=== PATIENT | male | born 1955 | race Caucasian/White ===

== ENCOUNTER 2024-03-22 11:52 | Inpatient (IN) | payer SELFPAY ==
[~2024-03-22] VITALS: Ht 175.3 cm; Wt 77.4 kg
[2024-03-22 13:34] LABS: BASOPHILS # (AUTO) 0.02 K/uL (0.00-0.20); BASOPHILS % (AUTO) 0.1 % (0.0-5.0); EOSINOPHILS # (AUTO) 0.02 K/uL (0.00-0.70); EOSINOPHILS % (AUTO) 0.1 % (0.0-8.0); HEMATOCRIT 36.7 % (42-54); IMMATURE GRANULOCYTE ABSOLUTE 0.25 K/uL (0-1); LYMPHOCYTES # (AUTO) 0.5 K/uL (1.0-4.8); LYMPHOCYTES % (AUTO) 3.7 % (21.0-51.0); MEAN CORPUSCULAR HGB CONC 32.7 g/dL (32.0-36.0); MONOCYTES # (AUTO) 1.2 K/uL (0.1-1.0); MONOCYTES % (AUTO) 8.5 % (3.0-13.0); NEUTROPHILS # (AUTO) 12.4 K/uL (1.8-7.7); NEUTROPHILS % (AUTO) 85.9 % (40.0-77.0); PLATELET COUNT (AUTO) 209 K/uL (130-400); RED BLOOD CELL COUNT(AUTO) 3.43 MIL/uL (4.50-6.20); RED CELL DISTRIBUTION WIDTH 12.7 % (11.0-15.5); WHITE BLOOD COUNT (AUTO) 14.4 K/uL (4.8-10.8)
[2024-03-22 13:50] LABS: ALCOHOL, BLOOD < 3 mg/dL (0-10); CARBON DIOXIDE 13 mmol/L (21-32); CREATINE KINASE, TOTAL 89 U/L (21-232); CREATININE 1.9 mg/dL (0.5-1.3); GLOMERULAR FILTR. RATE CALC 38 mL/min (>90); GLUCOSE,RANDOM 188 mg/dL (70-105); POTASSIUM 4.2 mmol/L (3.5-5.1); SALICYLATE 4.5 mg/dL (2.8-20.0); SODIUM SERUM 128 mmol/L (136-145); UREA NITROGEN, BLOOD 44 mg/dL (7-18)
[2024-03-22 14:01] LABS: ACETAMINOPHEN < 1 mcg/mL (10-29)
[2024-03-22 14:02] LABS: CHLORIDE 88 mmol/L (101-111)
[2024-03-22] MEDS: 0.9%NACL 1000ML 1,000 ML IV ONE (16:30)
[2024-03-22] MEDS: 0.9%NACL 1000ML 3,267 ML IV ONE (16:31)
[2024-03-22] MEDS: CEFTRIAXONE 2GM VIAL IVPB ONE (16:31)
[2024-03-22 19:55] LABS: ABG BASE EXCESS -3.5 mmol/L (-2.0-3.0); ABG OXYGEN SATURATION 96.5 % (94.0-98.0); ABG PCO2 22 mmHg (35-48); ABG PH 7.536 (7.350-7.450); CARBON MONOXIDE 0.3 % (0.5-1.5); DEVICE COMMENT MANNY RN; HHb 3.5; PO2, ARTERIAL BG 94.5 mmHg (83.0-108.0); VENT MODE, BG RA (ROOM AIR)
[2024-03-22] MEDS ORDERED: ONDANSETRON 4MG INJ IV PRN (20:00)
[2024-03-22] MEDS ORDERED: DEXTROSE 50%-WATER 50 ML DISP.SYRIN IV PRN (20:00)
[2024-03-22] MEDS ORDERED: acetaMINOPHEN 325 MG TAB PO PRN (20:00)
[2024-03-22] MEDS ORDERED: GLUCAGON 1MG KIT 1 MG ML IM PRN (20:00)
[2024-03-22] MEDS: 0.9%NACL 1000ML 1,000 ML IV SCH (20:14)
[2024-03-22] MEDS: FAMOTIDINE 20MG VIAL IV SCH (20:14)
[2024-03-22] MEDS: INSULIN humuLIN R 100 UNIT/ML 3ML SQ SCH (20:56)
[2024-03-22] MEDS ORDERED: cefTRIAXone 1G VIAL 1 GM in 0.9%NACL 50ML 50 ML IV SCH (21:00)
[2024-03-22 21:30] VITALS: BP 99/53; PULSE 93; RESP 18; O2SAT 94
[2024-03-22 23:32] VITALS: BP 92/48; PULSE 78; RESP 17
[2024-03-23 03:56] VITALS: BP 92/49; PULSE 72; RESP 17
[2024-03-23 05:11] LABS: BASOPHILS # (AUTO) 0.03 K/uL (0.00-0.20); BASOPHILS % (AUTO) 0.3 % (0.0-5.0); HEMATOCRIT 23.3 % (42-54); IMMATURE GRANULOCYTE ABSOLUTE 0.06 K/uL (0-1); LYMPHOCYTES # (AUTO) 1.4 K/uL (1.0-4.8); LYMPHOCYTES % (AUTO) 15.1 % (21.0-51.0); MEAN CORPUSCULAR HEMOGLOBIN 35.4 pg (27.0-33.0); MEAN CORPUSCULAR HGB CONC 34.8 g/dL (32.0-36.0); MEAN CORPUSCULAR VOLUME 101.7 fL (79-99); MONOCYTES # (AUTO) 0.9 K/uL (0.1-1.0); MONOCYTES % (AUTO) 9.6 % (3.0-13.0); NEUTROPHILS # (AUTO) 6.7 K/uL (1.8-7.7); NEUTROPHILS % (AUTO) 74.3 % (40.0-77.0); PLATELET COUNT (AUTO) 125 K/uL (130-400); RED BLOOD CELL COUNT(AUTO) 2.29 MIL/uL (4.50-6.20); RED CELL DISTRIBUTION WIDTH 12.3 % (11.0-15.5); WHITE BLOOD COUNT (AUTO) 9.1 K/uL (4.8-10.8)
[2024-03-23 05:33] LABS: BILIRUBIN,DIRECT 0.2 mg/dL (0.0-0.3); BILIRUBIN,TOTAL 0.9 mg/dL (0.2-1.0); POTASSIUM 3.6 mmol/L (3.5-5.1); THYROID STIMULATING HORMONE 1.3 uIU/mL (0.36-3.74); TOTAL PROTEIN, SERUM 4.6 g/dL (6.0-8.3)
[2024-03-23 06:22] LABS: HEMOGLOBIN A1C 4.4 % (4.0-6.0)
[2024-03-23] MEDS: POTASSIUM CHLORIDE 20MEQ/100ML 100 ML IV PRN (06:23)
[2024-03-23 08:00] VITALS: BP 96/73; PULSE 76; RESP 18; O2SAT 94
[2024-03-23] MEDS ORDERED: octREOtide aceTATe 500 MCG in 0.9%NACL 100ML 97.5 ML IV SCH (10:30)
[2024-03-23] MEDS ORDERED: COMPOUND IV REFRIGERATED 1 EACH IVSOLN MISC PRN (11:00)
[2024-03-23] MEDS ORDERED: COMPOUND IV MISC 1 EACH IVSOLN MISC PRN (11:00)
[2024-03-23 11:07] LABS: HEMATOCRIT 22.6 % (42-54); MEAN CORPUSCULAR HEMOGLOBIN 35.3 pg (27.0-33.0); MEAN CORPUSCULAR HGB CONC 33.6 g/dL (32.0-36.0); MEAN CORPUSCULAR VOLUME 105.1 fL (79-99); RED BLOOD CELL COUNT(AUTO) 2.15 MIL/uL (4.50-6.20); RED CELL DISTRIBUTION WIDTH 12.6 % (11.0-15.5); WHITE BLOOD COUNT (AUTO) 7.8 K/uL (4.8-10.8)
[2024-03-23 12:00] VITALS: BP_SYST 100; BP_SYST 87; BP_DIAS 48; BP_DIAS 62; PULSE 67; RESP 18
[2024-03-23] MEDS ORDERED: PHARMACY COMMUNICATION MISC SCH (13:00)
[2024-03-23] MEDS: M.V.I. IV [ADULT] 10 ML, FOLic ACID 5 MG/ML VIAL 1 MG, THIAMINE HCL 100 MG in 0.9%NACL ... IV SCH (13:26)
[2024-03-23] MEDS ORDERED: cefTRIAXone 1G VIAL IVPB SCH (15:00)
[2024-03-23 16:23] VITALS: BP 95/48; PULSE 68; RESP 17
[2024-03-23] MEDS: PANTOPRAZOLE 80 MG/NS 100ML IVP SCH (17:08)
[2024-03-23] MEDS: cefTRIAXone 1G VIAL IVPB SCH (18:24)
[2024-03-23 18:42] LABS: MEAN CORPUSCULAR HEMOGLOBIN 35.3 pg (27.0-33.0); MEAN CORPUSCULAR HGB CONC 32.8 g/dL (32.0-36.0); MEAN CORPUSCULAR VOLUME 107.8 fL (79-99); PLATELET COUNT (AUTO) 93 K/uL (130-400); RED BLOOD CELL COUNT(AUTO) 1.67 MIL/uL (4.50-6.20); RED CELL DISTRIBUTION WIDTH 12.5 % (11.0-15.5)
[2024-03-23 20:00] VITALS: BP 88/62; PULSE 67; RESP 16
[2024-03-23 20:09] LABS: PLATELET MORPHOLOGY DECREASED
[2024-03-23] MEDS ORDERED: PANTOPRAZOLE 40 MG/VIAL IVP SCH (21:00)
[2024-03-24] VITALS (26 sets, daily range): BP systolic 80–114; BP diastolic 49–71; PULSE 52–74; RESP 6–19; O2SAT 94–98
[2024-03-24] MEDS: acetaMINOPHEN 325 MG TAB PO PRN (00:43)
[2024-03-24 03:55] LABS: HEMATOCRIT 28.7 % (42-54); MEAN CORPUSCULAR HEMOGLOBIN 32.3 pg (27.0-33.0); MEAN CORPUSCULAR HGB CONC 33.1 g/dL (32.0-36.0); MEAN CORPUSCULAR VOLUME 97.6 fL (79-99); RED BLOOD CELL COUNT(AUTO) 2.94 MIL/uL (4.50-6.20); WHITE BLOOD COUNT (AUTO) 6.8 K/uL (4.8-10.8)
[2024-03-24 04:20] LABS: CREATININE 0.9 mg/dL (0.5-1.3); MAGNESIUM 1.9 mg/dL (1.80-2.40); POTASSIUM 3.1 mmol/L (3.5-5.1); TOTAL PROTEIN, SERUM 4.7 g/dL (6.0-8.3)
[2024-03-24] MEDS: OCTREOTIDE 1,250 MCG /NS 250ML (DRIP) IV SCH (08:48)
[2024-03-24 10:37] LABS: HEMATOCRIT 28.3 % (42-54); MEAN CORPUSCULAR HEMOGLOBIN 32.6 pg (27.0-33.0); MEAN CORPUSCULAR HGB CONC 32.5 g/dL (32.0-36.0); MEAN CORPUSCULAR VOLUME 100.4 fL (79-99); RED BLOOD CELL COUNT(AUTO) 2.82 MIL/uL (4.50-6.20); RED CELL DISTRIBUTION WIDTH 17.2 % (11.0-15.5)
[2024-03-24] MEDS ORDERED: LIDOCAINE HCL-MPF 2% 10ML AMP IJ ONE (11:45)
[2024-03-24] MEDS ORDERED: proPOFol 10 MG/ML 20ML VIAL IV ONE (11:45)
[2024-03-24] MEDS: KCL 20 MEQ ERTAB PO ONE (17:48)
[2024-03-24 18:05] LABS: HEMATOCRIT 30.1 % (42-54); MEAN CORPUSCULAR HEMOGLOBIN 32.9 pg (27.0-33.0); MEAN CORPUSCULAR HGB CONC 32.9 g/dL (32.0-36.0); RED BLOOD CELL COUNT(AUTO) 3.01 MIL/uL (4.50-6.20); RED CELL DISTRIBUTION WIDTH 17.3 % (11.0-15.5); WHITE BLOOD COUNT (AUTO) 6.8 K/uL (4.8-10.8)
[2024-03-24] MEDS: PANTOPRAZOLE 40 MG/VIAL IVP SCH (21:01)
[2024-03-25] VITALS: BP 93/59; PULSE 63; RESP 18
[2024-03-25 04:00] VITALS: BP 90/58; PULSE 64; RESP 18
[2024-03-25 05:16] LABS: HEMATOCRIT 29.3 % (42-54); MEAN CORPUSCULAR HEMOGLOBIN 32.5 pg (27.0-33.0); MEAN CORPUSCULAR HGB CONC 32.4 g/dL (32.0-36.0); MEAN CORPUSCULAR VOLUME 100.3 fL (79-99); RED BLOOD CELL COUNT(AUTO) 2.92 MIL/uL (4.50-6.20); WHITE BLOOD COUNT (AUTO) 7.4 K/uL (4.8-10.8)
[2024-03-25 05:36] LABS: ALBUMIN 1.7 g/dL (3.5-5.0); BILIRUBIN,TOTAL 0.8 mg/dL (0.2-1.0); CREATININE 0.8 mg/dL (0.5-1.3); MAGNESIUM 1.4 mg/dL (1.80-2.40); POTASSIUM 3.4 mmol/L (3.5-5.1); TOTAL PROTEIN, SERUM 4.4 g/dL (6.0-8.3)
[2024-03-25 08:00] VITALS: BP 108/52; PULSE 71; RESP 18
[2024-03-25 08:30] VITALS: O2SAT 93
[2024-03-25] MEDS: MAGNESIUM 2GM PREMIX 50ML 50 ML IV PRN (08:31)
[2024-03-25 12:00] VITALS: BP 97/55; PULSE 76; RESP 18
[2024-03-25] MEDS ORDERED: MAGNESIUM 2GM PREMIX 50ML 50 ML IV SCH (12:30)
[2024-03-25] MEDS ORDERED: PANT40TA55 PO (12:32)
[2024-03-25] MEDS ORDERED: CEFD300C3 PO (12:32)
[2024-03-25] MEDS ORDERED: THIA100T78 PO (12:32)
[2024-03-25] MEDS ORDERED: FOLI0.4T6 PO (12:32)
[2024-03-25] MEDS: KCL 20 MEQ ERTAB PO ONE (13:31)
== END 2024-03-25 13:55 | disposition home or self-care (01) | DRG 872 ==
LOC: EDH 11:52 → EDHIP 11:53 → 4CH 21:30
PROVIDERS: ADMIT Internal Medicine; ATTEND Internal Medicine
PROC: 30233N1 Transfusion of Nonautologous Red Blood Cells into Peripheral Vein, Percutaneous Approach (ICD-10-PCS; 2024-03-23)
PROC: 0DB58ZX Excision of Esophagus, Via Natural or Artificial Opening Endoscopic, Diagnostic (ICD-10-PCS; principal; 2024-03-24)
PROC: 0DB68ZX Excision of Stomach, Via Natural or Artificial Opening Endoscopic, Diagnostic (ICD-10-PCS; 2024-03-24)
DX: A41.9 Sepsis, unspecified organism (principal); N17.9 Acute kidney failure, unspecified; K22.10 Ulcer of esophagus without bleeding; Z59.00 Homelessness unspecified; D62 Acute posthemorrhagic anemia; R65.20 Severe sepsis without septic shock; E86.0 Dehydration; F10.229 Alcohol dependence with intoxication, unspecified; F17.210 Nicotine dependence, cigarettes, uncomplicated; K29.70 Gastritis, unspecified, without bleeding; K44.9 Diaphragmatic hernia without obstruction or gangrene
CPT/HCPCS: 36415; 36600; 43239; 70450; 71045; 74176; 80048; 80053; 80076; 82010; 82140; 82270; 82435; 82550; 82803; 82947; 82948; 83036; 83605; 83690; 83735; 84132; 84145; 84295; 84443; 85018; 85025; 85027; 86850; 86900; 86901; 86923; 87040; 93005; 99291; A4606; G0378; G0481; J0696; J1815; J2354; J2470; J2704; J3411; J3475; J3480; J3490; J7030; J7050; P9016; A4215; A4221; A4222; A4223; A4600; A4620; A4663; A7002

== ENCOUNTER 2024-07-19 23:16 | Emergency (ER) | payer SELFPAY ==
[~2024-07-19 23:16] MED LIST: APIX5TAB PO; CEFD300C3 PO; FOLI0.4T6 PO; PANT40TA55 PO; THIA100T78 PO
[2024-07-19 23:34] VITALS: BP 101/64; PULSE 62; RESP 16; TEMP 98.1
--- NOTE | 2024-07-19 23:46 | ERN ---
ED Note History of Present Illness Stated Complaint: BILATERAL LEG PAIN, CELLULITIS Chief Complaint: Lower Extremity Pain/Injury Time Seen by MD: 23:28 Allergies: Coded Allergies: No Known Drug Allergies (Unverified Allergy, Unknown, 03/22/24) Home Meds Active Scripts Apixaban (Eliquis) 5 Mg Tablet, 1 TAB PO BID for 30 Days, #60 TAB 0 Refills Prov:CHICA DAVILA MD 07/19/24 Thiamine HCl (B-1) 100 Mg Tablet, 100 MG PO DAILY for 30 Days, #30 TAB 1 Refill Prov:MILLER GARCIA MD 03/25/24 Folic Acid (Folic Acid) 0.4 Mg Tablet, 0.4 MG PO DAILY for 30 Days, #30 TAB 1 Refill Prov:MILLER GARCIA MD 03/25/24 Pantoprazole Sodium (Protonix) 40 Mg Ectab, 40 MG PO DAILY for 30 Days, #30 TAB.EC 1 Refill Prov:MILLER GARCIA MD 03/25/24 Discontinued Scripts Cefdinir (Cefdinir) 300 Mg Capsule, 300 MG PO BID for 5 Days, #10 CAP 0 Refills Prov:MILLER GARCIA MD 03/25/24 Past Medical History Dictation Chronic Intermittent B/L lower extremity pain, POA Atrial fibrillation with RVR, POA, subsided Patient will be past medical history of CHF, DVTs, bedside hernia, hypernatremia, AFib, bilateral cellulitis presents via EMS after being discharged today with worsening leg pain. Patient is on appropriate medication, will worse he has not picked up his medicine. Patient has no new complaints. Patient denies fevers, nausea, vomiting diaphoresis, syncope, presyncope, chest pain or shortness of breath, abdominal pain. Past Medical History: Other Additional Past Medical Hx: hypotension Surgical History: None Social History: ETOH Review of System Dictation See HPI Initial Vital Sign VS Vital Signs Date Time Temp Pulse Resp B/P (MAP) Pulse Ox O2 Delivery O2 Flow Rate FiO2 07/19/24 23:34 98.1 62 16 101/64 98 Room Air 0 Physical Exam Dictation General: Disheveled, unkempt, malodorous MSK: Tenderness to palpation bilateral legs, no deformity Skin edema to the bilateral lower extremities, no inappropriate warmth ED Course ED Course Orders Procedure Category Date Status Time Acetaminophen 500mg PHA 07/20/24 In Process Tab (Tylenol 500mg T 00:00 Current Medications Medications (Trade) Dose Ordered Sig/Citlaly Route PRN Reason Start Time Stop Time Status Last Admin Dose Admin Acetaminophen (TYLenol 500MG TAB) 500 mg ONCE ONCE PO 07/20/24 00:00 07/20/24 00:01 Vital Signs Date Time Temp Pulse Resp B/P (MAP) Pulse Ox O2 Delivery O2 Flow Rate FiO2 07/19/24 23:34 98.1 62 16 101/64 98 Room Air 0 Medical Decision Making MDM dDX: Malingering versus cellulitis versus DVT versus homelessness #intepretation and discuss: Patient returns today saying that he is here because he should have been discharged and does not have a place to go. Patient states he did not picker and sorter load and unload his outpatient medication. Patient was complaining about leg pain, which he is known to have DVTs. Patient has no new respiratory complaints. Patient's vital signs are within normal limits. Review inpatient documentation shows appropriate vascular discharge. Patient will be discharged home with Augmentin. Patient all here periods of is improved. Return precautions given. By nasal All questions prior to discharge. We will provide primary care for a period DX & DISP Disposition: Discharge Departure Impression: Primary Impression: Lower extremity pain Condition: Stable Additional Instructions: Please return emergency department immediately if you develop worsened pain, shortness of breath, lightheadedness, 7+ capsules current chest pain, difficulty breathing. Please take antibiotics as prescribed. Please take happened unit case was prescribed. Referrals: SELF,REFERRAL (PCP) Time of Disposition: 23:46 DENNIS GONZALEZ DO Jul 19, 2024 23:46
[2024-07-19] MEDS: acetaMINOPHEN 500 MG TABLET PO ONE (23:47)
== END 2024-07-20 | disposition home or self-care (01) ==
LOC: EDH 23:16
DX: M79.605 Pain in left leg (principal); M79.604 Pain in right leg; I48.91 Unspecified atrial fibrillation; I50.9 Heart failure, unspecified; Z86.718 Personal history of other venous thrombosis and embolism; Z79.01 Long term (current) use of anticoagulants; Z79.899 Other long term (current) drug therapy
CPT/HCPCS: 99283

== ENCOUNTER 2024-08-01 14:04 | Inpatient (IN) | payer SELFPAY ==
[~2024-08-01] VITALS: Ht 170.2 cm; Wt 66.8 kg
[~2024-08-01 14:04] MED LIST changes: -CEFD300C3 PO
--- NOTE | 2024-08-01 15:30 | EKG ---
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 Requested By: GISELLE BLANK Order Number: [id number] Reading MD: Nena Umana Measurements Intervals [place] Rate: 114 P: 39 [place]: 139 QRS: 24 QRSD: 71 T: 132 QT: 299 QTc: 408 Interpretive Statements Sinus tachycardia Atrial premature complexes Repol abnrm suggests ischemia, anterolateral Compared to ECG 07/04/2024 15:57:42 Atrial premature complex(es) now present Early repolarization now present Possible ischemia now present Atrial fibrillation no longer present Atrial flutter no longer present Electronically Signed On 08-04-2024 08:16:27 ELECTRICIAN [employer] by Nena Umana Please click the below link to view image of tracing.
[2024-08-01 15:39] LABS: BASOPHILS # (AUTO) 0.07 K/uL (0.00-0.20); BASOPHILS % (AUTO) 0.3 % (0.0-5.0); EOSINOPHILS # (AUTO) 0.01 K/uL (0.00-0.70); HEMATOCRIT 40.7 % (42-54); IMMATURE GRANULOCYTE ABSOLUTE 0.16 K/uL (0-1); LYMPHOCYTES # (AUTO) 0.9 K/uL (1.0-4.8); LYMPHOCYTES % (AUTO) 3.2 % (21.0-51.0); MEAN CORPUSCULAR HGB CONC 33.2 g/dL (32.0-36.0); MEAN CORPUSCULAR VOLUME 93.3 fL (79-99); MONOCYTES # (AUTO) 1.3 K/uL (0.1-1.0); MONOCYTES % (AUTO) 4.9 % (3.0-13.0); NEUTROPHILS # (AUTO) 24.5 K/uL (1.8-7.7); PLATELET COUNT (AUTO) 441 K/uL (130-400); RED BLOOD CELL COUNT(AUTO) 4.36 MIL/uL (4.50-6.20); RED CELL DISTRIBUTION WIDTH 13.2 % (11.0-15.5)
[2024-08-01 15:45] LABS: CREATININE 1.4 mg/dL (0.5-1.3); POTASSIUM 4.5 mmol/L (3.5-5.1)
--- NOTE | 2024-08-01 16:48 | ERN ---
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 EMS was called by bystanders after patient tripped outside [facility]. Patient reports he was able to catch himself by holding onto the wall. Patient is homeless and currently denies any pain. Allergies: Coded Allergies: No Known Drug Allergies (Unverified Allergy, Unknown, 03/22/24) Home Meds Active Scripts Apixaban (Eliquis) 5 Mg Tablet, 1 TAB PO BID for 30 Days, #60 TAB 0 Refills Prov:CHICA DAVILA MD 07/19/24 Thiamine HCl (B-1) 100 Mg Tablet, 100 MG PO DAILY for 30 Days, #30 TAB 1 Refill Prov:MILLER GARCIA MD 03/25/24 Folic Acid (Folic Acid) 0.4 Mg Tablet, 0.4 MG PO DAILY for 30 Days, #30 TAB 1 Refill Prov:MILLER GARCIA MD 03/25/24 Pantoprazole Sodium (Protonix) 40 Mg Ectab, 40 MG PO DAILY for 30 Days, #30 TAB.EC 1 Refill Prov:MILLER GARCIA MD 03/25/24 Past Medical History Past Medical History: No Pertinent History Additional Past Medical Hx: hypotension Surgical History: None Social History: ETOH Review of System Dictation Constitutional: Positive for fall Negative for fever,chills, and weight loss Eyes: Negative for injury, pain,redness, and discharge ENT: Negative for injury,pain or swelling Cardiovascular: Negative for chest pain, palpitations, and edema Respiratory: Negative for shortness of breath, cough, and wheezing, Abdomen/GI: Negative for abdominal pain, nausea, vomiting, diarrhea, and constipation Back: Negative for injury and pain : Negative for injury, bleeding and discharge MS/Extremity: Negative for injury and deformity Skin: Negative for rash, and discoloration Neuro: Negative for headache, weakness, numbness, tingling, and seizure Psych: Negative for suicide ideation, homicidal ideation, and hallucinations Review of Systems: was completed Initial Vital Sign VS Vital Signs Date Time Temp Pulse Resp B/P (MAP) Pulse Ox O2 Delivery O2 Flow Rate FiO2 08/01/24 14:05 97.7 80 16 126/76 97 Room Air 0 08/01/24 15:53 21 Physical Exam Dictation General: awake, alert, NAD Head/Face: Normocephalic, atraumatic Eyes: PERRL, EOMI, vision at baseline ENT: oral cavity clear, TMs clear, no signs of infection Neck: Trachea midline, supple, no nuchal rigidity Cardiovascular: RRR, normal S1/S2, No MRGs, no JVD Respiratory: Diminished lung sounds in the right side. Abdomen: Soft, non-tender, non-distended, normal bowel sounds, no guarding or rebound. Skin: Warm, dry, normal turgor, no rash MS/Extremity: Pulses equal, no cyanosis, neurovascular intact, FROM Neuro: COAx4, GCS 15, strength 5/5, CN 2-12 intact, normal cerebellar exam, normal gait, Psych: Normal behavior, mood, and affect normal Results (Laboratory/Radiology) Laboratory/Radiology Laboratory Tests Test 08/01/24 15:20 08/01/24 15:26 Urine Color YELLOW (YELLOW) Urine Appearance CLOUDY (CLEAR) H Urine pH 5.5 (5.0-8.0) Urine Specific [place] 1.027 (1.001-1.031) Urine Protein 30 mg/dL (NEGATIVE) H Urine Glucose (UA) 30 mg/dL (NEGATIVE) H Urine Ketones 5 mg/dL (NEGATIVE) H Urine Occult Blood NEGATIVE (NEGATIVE) Urine Nitrate NEGATIVE (NEGATIVE) Urine Bilirubin NEGATIVE mg/dL (NEGATIVE) Urine Urobilinogen 2.0 mg/dL (0.2-1.0) H Urine Leukocyte Esterase NEGATIVE [place]/uL Urine RBC 2-5 /HPF (0-1) H Urine WBC 6-10 /HPF (0-1) H Urine Squamous Epithelial Cells FEW /HPF (0-2) Urine Bacteria FEW /HPF (None Seen) Urine Hyaline Casts 26-50 /LPF (0-1 /LPF) H Urine Other Casts 2 /LPF (None Seen) White Blood Count 27.0 K/uL (4.8-10.8) H Red Blood Count 4.36 MIL/uL (4.50-6.20) L Hemoglobin 13.5 g/dL (14.0-18.0) L Hematocrit 40.7 % (42-54) L Mean Corpuscular Volume 93.3 fL (79-99) Mean Corpuscular Hemoglobin 31.0 pg (27.0-33.0) Mean Corpuscular Hemoglobin Concent 33.2 g/dL (32.0-36.0) Red Cell Distribution Width 13.2 % (11.0-15.5) Platelet Count 441 K/uL (130-400) H Mean Platelet Volume 8.5 fL (7.5-10.5) Immature Granulocyte % (Auto) 0.6 % (0-1) Neutrophils (%) (Auto) 91.0 % (40.0-77.0) H Lymphocytes (%) (Auto) 3.2 % (21.0-51.0) L Monocytes (%) (Auto) 4.9 % (3.0-13.0) Eosinophils (%) (Auto) 0.0 % (0.0-8.0) Basophils (%) (Auto) 0.3 % (0.0-5.0) Neutrophils # (Auto) 24.5 K/uL (1.8-7.7) H Lymphocytes # (Auto) 0.9 K/uL (1.0-4.8) L Monocytes # (Auto) 1.3 K/uL (0.1-1.0) H Eosinophils # (Auto) 0.01 K/uL (0.00-0.70) Basophils # (Auto) 0.07 K/uL (0.00-0.20) Absolute Immature Granulocyte (auto 0.16 K/uL (0-1) Nucleated Red Blood Cells 0.0 % (0.0-0.19) White Cell Morphology Comment See comments Sodium Level 133 mmol/L (136-145) L Potassium Level 4.5 mmol/L (3.5-5.1) Chloride Level 98 mmol/L (101-111) L Carbon Dioxide Level 22 mmol/L (21-32) Blood Urea Nitrogen 11 mg/dL (7-18) Creatinine 1.4 mg/dL (0.5-1.3) H Glomerular Filtration Rate Calc 55 mL/min (>90) Random Glucose 156 mg/dL (70-105) H Total Calcium 8.9 mg/dL (8.5-10.1) Labs Reviewed?: Yes EKG Comment: sinus tachycardia, atrial premature complexes, repol abnormal ischemia, anterolateral ED Course ED Course Orders Procedure Category Date Status Time Cbc With Differential LAB 08/01/24 Complete 15:09 Basic Metabolic Panel LAB 08/01/24 Complete 15:09 12 Lead Ekg Tracing- EKG 08/01/24 Complete Technical 15:09 Chest 1vw RAD 08/01/24 Taken 17:06 Urinalysis Profile LAB 08/01/24 Complete 17:06 Culture Urine ONDINA 08/01/24 In Process 17:36 Vital Signs Date Time Temp Pulse Resp B/P (MAP) Pulse Ox O2 Delivery O2 Flow Rate FiO2 08/01/24 18:04 98.6 90 16 130/109 97 Room Air* 0 21 08/01/24 15:53 98.2 80 16 118/80 98 Room Air* 0 21 08/01/24 14:05 97.7 80 16 126/76 97 Room Air 0 Medical Decision Making MDM MDM: 69-year-old male presents to the ED via EMS for evaluation 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 EMS was called by bystanders after patient tripped outside [facility]. Patient reports he was able to catch himself by holding onto the wall. Patient is homeless and currently [place] [address], anemia, thrombocythemia. Chemistry shows hyponatremia, elevated creatinine 1.4, this could be related to dehydration. UA shows no evidence of UTI. Chest x-ray shows pulmonary infiltrates in the right upper lobe. Patient was seen here multiple times last month. This could be hospital-acquired pneumonia. Blood cultures and lactic acid ordered along with Zosyn and vancomycin. Patient will be admitted. 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 Differential diagnosis: Fall, contusion Previous outside records reviewed: Old ER visits. Need for hospitalization: Patient does not meet criteria for hospitalization. Need for emergency major/minor surgery: No Patient's prior external medical records from other ER visits were reviewed by me as indicated. Prior testing and results from previous visits were reviewed. Prior tests were taken into account with medical decision making and resource utilization, independent historian/historians were used to obtain complete medical history. I independently interpreted the test that were performed, results were reviewed by me and considered findings on radiology if ordered. Medical management and examination interpretation discussions were had by me with other qualified healthcare professionals as indicated for the patient's care. DX & DISP Disposition: Inpatient Decision to Admit Date: Aug 01, 2024 Decision to Admit Time: 18:41 Departure Impression: Primary Impression: Hospital-acquired pneumonia Condition: Stable Referrals: SELF,REFERRAL (PCP) I have reviewed, & agreed with my scribe's, documentation. (Entered by Keyon Escalante, acting as a scribe for SOHA King) I have reviewed the case, and I agree with, Diagnosis and Plan I personally scribed for GISELLE KING NP ([email or web address]) on 08/01/24 at 16:48. Electronically submitted by Keyon Escalante ([email or web address]). GISELLE KING NP Aug 01, 2024 16:48
[2024-08-01 17:31] LABS: ADD UA MICROSCOPIC YES; APPEARANCE,URINE CLOUDY (CLEAR); BILIRUBIN,URINE NEGATIVE (NEGATIVE); COLOR,URINE YELLOW (YELLOW); GLUCOSE, URINE (UA) 30 mg/dL (NEGATIVE); KETONES,URINE 5 mg/dL (NEGATIVE); LEUKOCYTE ESTERASE ,URINE NEGATIVE Leu/uL (NEGATIVE); NITRATE,URINE NEGATIVE (NEGATIVE); OCCULT BLOOD,URINE NEGATIVE (NEGATIVE); PH,URINE 5.5 (5.0-8.0); PROTEIN,URINE 30 mg/dL (NEGATIVE)
[2024-08-01 17:34] LABS: BACTERIA,URINE FEW /HPF (None Seen); HYALINE CASTS, URINE 26-50 /LPF (0-1 /LPF); MUCUS,URINE MOD LPF (None Seen); OTHER CASTS, URINE 2 /LPF (None Seen); SQUAMOUS EPITHELIAL CELL,UR FEW /HPF (0-2)
--- NOTE | 2024-08-01 19:24 | HMCIMG ---
CHEST 1VW HISTORY: Shortness of breath COMPARISON: 07/06/2024 FINDINGS: A frontal projection of the chest was obtained. Right lung pulmonary infiltrates are seen with right lung volume loss. COPD changes are seen. The heart is normal in size. Degenerative changes are seen. No evidence of aortic calcification is seen. IMPRESSION: 1. Right lung pulmonary infiltrates are seen with right lung volume loss. COPD changes are seen.
[2024-08-01] MEDS ORDERED: doCUSate SODIUM 100 MG CAP PO PRN (20:00)
[2024-08-01] MEDS ORDERED: LACTULOSE 20 GM/30 ML UDCUP PO PRN (20:00)
[2024-08-01] MEDS ORDERED: hydrALAZine 20MG/ML VIAL IV PRN (20:00)
[2024-08-01] MEDS ORDERED: ondanSETRON 4MG INJ IVP PRN (20:00)
[2024-08-01] MEDS ORDERED: VANCOMYCIN PROTOCOL PER PHARMACY IV SCH (20:00)
[2024-08-01] MEDS ORDERED: acetaMINOPHEN 650 MG SUPPOSITORY RC PRN (20:00)
[2024-08-01] MEDS ORDERED: TEMAZepam 15 MG CAPSULE PO PRN (20:00)
[2024-08-01] MEDS ORDERED: acetaMINOPHEN 325 MG TAB PO PRN (20:00)
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
[2024-08-01 20:10] LABS: ABG BASE EXCESS 0.1 mmol/L (-2.0-3.0); ABG HCO3 22.1 mmol/L (21.0-28.0); ABG OXYGEN SATURATION 93.9 % (94.0-98.0); ABG PCO2 28 mmHg (35-48); CARBON MONOXIDE 0.4 % (0.5-1.5); DEVICE COMMENT RR RN; HHb 6.1; PO2, ARTERIAL BG 65.9 mmHg (83.0-108.0); VENT MODE, BG RA (ROOM AIR)
[2024-08-01] MEDS: ZOSYN 3.375GM +NS 50ML IV STA (20:16)
[2024-08-01] MEDS: INSULIN humuLIN R 100 UNIT/ML 3ML SQ SCH (21:00)
[2024-08-01] MEDS: 0.9% NACL 250ML 250 ML IV SCH (21:07)
[2024-08-01] MEDS: VANCOMYCIN KIT 1 GM/250 ML IV.KIT IV STA (21:07)
--- NOTE | 2024-08-01 21:27 | NUR ---
report given to Carolina GOMEZ
[2024-08-01] MEDS: 0.9%NACL 1000ML 1,000 ML IV ONE (21:40)
[2024-08-01] MEDS: miDODRine HCL 5 MG TABLET PO SCH (21:40)
[2024-08-01] MEDS: IpraTROPium/alBUTERol SULFATE 3 ML SOLUTION IH SCH (22:00)
[2024-08-01] MEDS: HEParin 5,000 UNIT VIAL IV PRN (22:37)
[2024-08-01] MEDS: IpraTROPium 0.5 MG/2.5 ML INH IH SCH (22:53)
[2024-08-01] MEDS: BUDESONIDE 0.5 MG/2 ML INH IH SCH (22:53)
[2024-08-01] MEDS: HEParin 25,000 UNITS/250ML D5W 250 ML IV SCH (22:54)
[2024-08-01 23:00] VITALS: PULSE 88; RESP 17; O2SAT 95
[2024-08-01 23:15] LABS: SARS-CoV-2, RNA, NAAT NEGATIVE SARS CoV-2 (NEGATIVE)
[2024-08-01 23:17] LABS: INFLUENZA TYPE A Negative For Type A (NEGATIVE); INFLUENZA TYPE B Negative For Type B (NEGATIVE)
--- NOTE | 2024-08-01 23:39 | HMCIMG ---
CT CHEST W/O CONTRAST HISTORY: Hypoxemia COMPARISON: None TECHNIQUE: Multiple sequential axial images of the chest were obtained from the thoracic inlet through upper abdomen. Patient was not given contrast through intravenous route. FINDINGS: COPD changes are seen. Reticular nodular pulmonary infiltrates are seen of right lung. There are interstitial fibrosis. Coronary arterial calcifications are seen. Small hiatal hernia is seen. Tiny right pleural effusion is seen. There is no evidence of pneumothorax. There are normal size mediastinal and hilar lymph nodes. The heart is not enlarged. Degenerative changes of the thoracolumbar spine are present. There is no evidence of adrenal nodule. IMPRESSION: 1. COPD. Right lung reticular nodular infiltrates. CT was performed with one or more following dose reduction techniques: automated exposure control, adjustment of the mA and kv according to patient's size, or use of a iterative reconstruction technique.
[2024-08-01 23:44] LABS: BASOPHILS # (AUTO) 0.07 K/uL (0.00-0.20); BASOPHILS % (AUTO) 0.3 % (0.0-5.0); HEMATOCRIT 32.9 % (42-54); IMMATURE GRANULOCYTE ABSOLUTE 0.14 K/uL (0-1); LYMPHOCYTES # (AUTO) 2.2 K/uL (1.0-4.8); LYMPHOCYTES % (AUTO) 8.9 % (21.0-51.0); MEAN CORPUSCULAR HEMOGLOBIN 31.3 pg (27.0-33.0); MEAN CORPUSCULAR HGB CONC 33.4 g/dL (32.0-36.0); MEAN CORPUSCULAR VOLUME 93.5 fL (79-99); MONOCYTES # (AUTO) 1.4 K/uL (0.1-1.0); MONOCYTES % (AUTO) 5.4 % (3.0-13.0); NEUTROPHILS # (AUTO) 21.3 K/uL (1.8-7.7); NEUTROPHILS % (AUTO) 84.8 % (40.0-77.0); PLATELET COUNT (AUTO) 364 K/uL (130-400); RED BLOOD CELL COUNT(AUTO) 3.52 MIL/uL (4.50-6.20); RED CELL DISTRIBUTION WIDTH 13.4 % (11.0-15.5); WHITE BLOOD COUNT (AUTO) 25.1 K/uL (4.8-10.8)
--- NOTE | 2024-08-01 23:47 | HMCIMG ---
US VENOUS DOPPLER BILATERAL HISTORY: Leg swelling COMPARISON: None TECHNIQUE: Bilateral lower extremity venous Doppler ultrasound study was performed. FINDINGS: The common femoral, femoral, popliteal, and posterior tibial veins are visualized. Noncompressible thrombi are seen in the right common femoral, bilateral superficial femoral, popliteal and right posterior tibial veins consistent with deep venous thrombosis. The greater saphenous veins are also seen and grossly patent. IMPRESSION: 1. Noncompressible thrombi are seen in the right common femoral, bilateral superficial femoral, popliteal and right posterior tibial veins consistent with deep venous thrombosis.
--- NOTE | 2024-08-01 23:57 | NUR ---
MED NOT REC, NOT AVAILABLE AT BEDSIDE
[2024-08-02] VITALS (61 sets, daily range): BP systolic 91–151; BP diastolic 47–89; PULSE 58–93; RESP 11–31; TEMP 98.2–98.7; O2SAT 97–98
[2024-08-02] MEDS ORDERED: GLUCAGON 1MG KIT 1 MG ML IM PRN (01:00)
[2024-08-02] MEDS ORDERED: PoTASSium chl 10% ELIXIR 20MEQ 20 MEQ/15 ML UDCUP PO PRN (01:00)
[2024-08-02] MEDS ORDERED: PoTASSium chloRIDE 20MEQ ER 20 MEQ ERTAB PO PRN (01:00)
[2024-08-02] MEDS ORDERED: PoTASSium chloRIDE 10MEQ/100ML 100 ML IV PRN (01:00)
[2024-08-02] MEDS ORDERED: DEXTROSE 50%-WATER 50 ML DISP.SYRIN IV PRN (01:00)
[2024-08-02 01:11] LABS: AMPHET/METH SCREEN,URINE NEGATIVE (NEGATIVE); BARBITURATE SCREEN, URINE NEGATIVE (NEGATIVE); BENZODIAZEPINES SCREEN,URINE NEGATIVE (NEGATIVE); CANNABINOID SCREEN,URINE NEGATIVE (NEGATIVE); COCAINE SCREEN,URINE NEGATIVE (NEGATIVE); OPIATE SCREEN,URINE NEGATIVE (NEGATIVE); PHENCYCLIDINE SCREEN,URINE NEGATIVE (NEGATIVE)
[2024-08-02] MEDS: CALCIUM GLUC 1GM/10ML VIAL IV ONE (01:21)
[2024-08-02] MEDS: NOREPINEPHRIN 4MG/NS 250ML 250 ML IV SCH (01:35)
--- NOTE | 2024-08-02 01:53 | NUR ---
CALLED FOR A REPORT BED NOT READY YET SEEN BY JANAK ORDONEZ CRIT CARE CONSULT
[2024-08-02] MEDS ORDERED: ALBUMIN HUMAN 25% 100 ML IV SCH (02:00)
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
[2024-08-02] MEDS: ceFEPime HCL 1 GM VIAL IVPB SCH (05:59)
[2024-08-02 06:56] LABS: HEMATOCRIT 31.9 % (42-54); MEAN CORPUSCULAR HGB CONC 33.5 g/dL (32.0-36.0); MEAN CORPUSCULAR VOLUME 92.5 fL (79-99); RED BLOOD CELL COUNT(AUTO) 3.45 MIL/uL (4.50-6.20); RED CELL DISTRIBUTION WIDTH 13.4 % (11.0-15.5); WHITE BLOOD COUNT (AUTO) 21.1 K/uL (4.8-10.8)
[2024-08-02 07:18] LABS: CREATININE 1.3 mg/dL (0.5-1.3); MAGNESIUM 1.6 mg/dL (1.80-2.40); POTASSIUM 4.4 mmol/L (3.5-5.1); THYROID STIMULATING HORMONE 4.95 uIU/mL (0.36-3.74)
[2024-08-02] MEDS: PANTOPrazole 40 MG TAB DR PO SCH (10:13)
--- NOTE | 2024-08-02 12:39 | HMCIMG ---
NM PULMONARY/LUNG VQ SCAN HISTORY: Hypoxemia COMPARISON: None TECHNIQUE: Ventilation study was performed with 7.5 mCi of Xenon gas through inhalation route. Perfusion lung imaging study was performed with 5 mCi of technetium macroaggregated through intravenous route. FINDINGS: There is no evidence of segmental or subsegmental perfusion defect. Nonsegmental perfusion defects are also present. IMPRESSION: 1. Low probability for pulmonary embolus.
[2024-08-02] MEDS: AZITHROMYCIN 500MG+NS 250ML 250 ML IVPB SCH (15:09)
--- NOTE | 2024-08-02 15:32 | NUR ---
DCP: HOMELESS Sw familiar with pt who denies he is homeless, "I live outdoors". Pt states he was staying on [address] and was told he could not return. Pt states he is a member of the [employer], and has 270 million dollars, and since he owes the government, he can not access his SS benefits. And he can not access the money he has either. Pt states he has no family here or out of state, no friends that he cares to mention. Pt states he is working on another place to stay, but does not want us to discharge him till weather is better. CM updated.
--- NOTE | 2024-08-02 16:03 | PN ---
[facility] PROGRESS NOTE Date of Service: Aug 02, 2024 Time of Service: 15:58 SUBJECTIVE: 08/02 patient seen at bedside, no acute events overnight. V/Q scan pending, we will follow up. Venous Dopplers positive for thrombus, we will continue heparin drip. WBC improved from 20/5 down to 21, hemoglobin decreased from 11.0 down to [address]. CT of chest showing pulmonary infiltrates on the right side, we will continue with antibiotics. REVIEW OF SYSTEMS 12-point ROS reviewed with patient. All pertinent positives mentioned above. Otherwise negative, non-pertinent, or noncontributory. PHYSICAL EXAM GENERAL APPEARANCE: The patient is awake, alert, and oriented. Ungroomed, his close is dirty, and has body foul odor. NEUROLOGICAL: Cranial nerves II-XII grossly intact. Motor is 5/5 in bilateral upper and lower extremities proximal to distal. No sensory deficits. HEENT: Face is symmetric. Pupils are equal and reactive. Extraocular movements are intact. NECK: Supple. No JVD. No thyromegaly. No submental, submandibular, pre- /postauricular, occipital or supraclavicular lymphadenopathy. CHEST: Normal chest expansion. No Telemetry. LUNGS: Tachypneic, diminished. No rhonchi or wheezing. Has productive thick phlegm. CARDIOVASCULAR: Regular. S1 and S2 normal. No appreciable rubs, murmurs or gallops. ABDOMEN: Soft, nontender, and nondistended. There is no rebound, voluntary guarding, or rigidity. : Deferred. No Avery. EXTREMITIES: Non-edematous and not cyanotic. No clubbing. Good capillary refill. SKIN: No skin breakdown. Vital Signs (last 8hr) Date Time Temp Pulse Resp B/P (MAP) Pulse Ox O2 Delivery O2 Flow Rate FiO2 08/02/24 15:01 76 19 109/68 (82) 100 08/02/24 14:46 75 18 101/64 (76) 99 08/02/24 14:31 81 26 105/66 (79) 100 28 08/02/24 14:16 74 21 104/65 (78) 99 28 08/02/24 14:01 74 24 109/63 (78) 100 28 08/02/24 13:46 75 19 103/61 (75) 99 28 08/02/24 13:31 75 20 101/62 (75) 100 28 08/02/24 13:16 75 21 111/63 (79) 100 28 08/02/24 13:01 77 18 111/68 (82) 96 28 08/02/24 12:46 81 19 112/63 (79) 94 28 08/02/24 12:28 98.2 83 19 107/71 (83) 92 28 08/02/24 12:00 98 Nasal Cannula* 2 28 08/02/24 11:01 76 14 126/77 (93) 96 28 08/02/24 10:46 72 18 110/68 (82) 100 28 08/02/24 10:31 74 18 106/66 (79) 98 28 08/02/24 10:16 75 18 127/62 (83) 99 28 08/02/24 10:01 81 19 108/73 (85) 98 28 08/02/24 09:46 87 23 106/71 (83) 96 28 08/02/24 09:31 85 17 141/68 (92) 97 28 08/02/24 09:16 77 20 135/52 (79) 97 28 08/02/24 09:06 80 19 102/66 (78) 98 28 08/02/24 08:31 79 27 91/58 (69) 98 28 08/02/24 08:17 74 31 101/63 (76) 99 28 08/02/24 08:01 93 27 134/76 (95) 88 28 08/02/24 08:00 98 Nasal Cannula* 2 28 LABS: Laboratory: Test 08/02/24 13:38 08/02/24 10:54 08/02/24 06:48 08/01/24 23:30 Range/Units Activated Partial Thromboplast Time 108.0 *H 26.3-35.5 SEC Whole Blood Glucose 91 70-110 MG/DL White Blood Count 21.1 H 4.8-10.8 K/uL Red Blood Count 3.45 L 4.50-6.20 MIL/uL Hemoglobin 10.7 L 14.0-18.0 g/dL Hematocrit 31.9 L 42-54 % Mean Corpuscular Volume 92.5 79-99 fL Mean Corpuscular Hemoglobin 31.0 27.0-33.0 pg Mean Corpuscular Hemoglobin Concent 33.5 32.0-36.0 g/dL Red Cell Distribution Width 13.4 11.0-15.5 % Platelet Count 382 130-400 K/uL Mean Platelet Volume 8.7 7.5-10.5 fL Nucleated Red Blood Cells 0.0 0.0-0.19 % Sodium Level 138 136-145 mmol/L Potassium Level 4.4 3.5-5.1 mmol/L Chloride Level 104 101-111 mmol/L Carbon Dioxide Level 24 21-32 mmol/L Blood Urea Nitrogen 14 7-18 mg/dL Creatinine 1.3 0.5-1.3 mg/dL Glomerular Filtration Rate Calc 60 >90 mL/min Random Glucose 93 70-105 mg/dL Total Calcium 8.2 L 8.5-10.1 mg/dL Phosphorus Level 3.0 2.5-4.9 mg/dL Magnesium Level 1.60 L 1.80-2.40 mg/dL Thyroid Stimulating Hormone (TSH) 4.95 #H 0.36-3.74 uIU/mL Immature Granulocyte % (Auto) 0.6 0-1 % Neutrophils (%) (Auto) 84.8 H 40.0-77.0 % Lymphocytes (%) (Auto) 8.9 L 21.0-51.0 % Monocytes (%) (Auto) 5.4 3.0-13.0 % Eosinophils (%) (Auto) 0.0 0.0-8.0 % Basophils (%) (Auto) 0.3 0.0-5.0 % Neutrophils # (Auto) 21.3 H 1.8-7.7 K/uL Lymphocytes # (Auto) 2.2 1.0-4.8 K/uL Monocytes # (Auto) 1.4 H 0.1-1.0 K/uL Eosinophils # (Auto) 0.00 0.00-0.70 K/uL Basophils # (Auto) 0.07 0.00-0.20 K/uL Absolute Immature Granulocyte (auto 0.14 0-1 K/uL Lactic Acid Level 2.3 0.8-2.5 mmol/L Test 08/01/24 22:46 08/01/24 20:08 08/01/24 19:50 08/01/24 15:26 Range/Units Influenza Type A Antigen Negative For Type A NEGATIVE Influenza Type B Antigen Negative For Type B NEGATIVE SARS-CoV-2, RNA, NAAT NEGATIVE SARS CoV-2 NEGATIVE Blood Gas Specimen Type Arterial Arterial Blood pH 7.510 H 7.350-7.450 Arterial Blood Partial Pressure CO2 28 L 35-48 mmHg Arterial Blood Partial Pressure O2 65.9 L 83.0-108.0 mmHg Arterial Blood HCO3 22.1 21.0-28.0 mmol/L Arterial Blood Oxygen Saturation 93.9 L 94.0-98.0 % Arterial Blood Base Excess 0.1 -2.0-3.0 mmol/L Hemoglobin (Blood Gas) 12.9 L 13.5-17.5 g/dL Sodium (Blood Gas) 129 L 136-145 MMOL/L Bedside Potassium (Blood Gas) 4.4 3.4-4.5 MMOL/L Bedside Chloride (Blood Gas) 98 98-107 MMOL/L Bedside Glucose (Blood Gas) 137 H 65-95 MG/DL Bedside Ionized Calcium (Blood Gas) 1.14 L 1.15-1.33 MMOL/L Bedside Lactic Acid (Blood Gas) 2.64 H 0.36-0.75 MMOL/L Blood Gas Temperature 37.0 35.5-37.0 CELSIUS Blood Gas Vent Mode RA ROOM AIR FiO2 21.0 % Blood Gas Specimen Comment RR RN D-Dimer Quantitative (PE/DVT) 805 *H 0-500 ng/mL B-Type Natriuretic Peptide 128 H 0-100 pg/mL Lipase 12 L 16-77 U/L White Cell Morphology Comment See comments Test 08/01/24 15:20 Range/Units Urine Color YELLOW YELLOW Urine Appearance CLOUDY H CLEAR Urine pH 5.5 5.0-8.0 Urine Specific [place] 1.027 1.001-1.031 Urine Protein 30 H NEGATIVE mg/dL Urine Glucose (UA) 30 H NEGATIVE mg/dL Urine Ketones 5 H NEGATIVE mg/dL Urine Occult Blood NEGATIVE NEGATIVE Urine Nitrate NEGATIVE NEGATIVE Urine Bilirubin NEGATIVE NEGATIVE mg/dL Urine Urobilinogen 2.0 H 0.2-1.0 mg/dL Urine Leukocyte Esterase NEGATIVE NEGATIVE Shelley/uL Urine RBC 2-5 H 0-1 /HPF Urine WBC 6-10 H 0-1 /HPF Urine Squamous Epithelial Cells FEW 0-2 /HPF Urine Bacteria FEW None Seen /HPF Urine Hyaline Casts 26-50 H 0-1 /LPF /LPF Urine Other Casts 2 None Seen /LPF Urine Opiates Screen NEGATIVE NEGATIVE Urine Barbiturates Screen NEGATIVE NEGATIVE Urine Phencyclidine Screen NEGATIVE NEGATIVE Urine Amphetamines Screen NEGATIVE NEGATIVE Urine Benzodiazepines Screen NEGATIVE NEGATIVE Urine Cocaine Screen NEGATIVE NEGATIVE Urine Marijuana (THC) Screen NEGATIVE NEGATIVE Current Medications Medications (Trade) Dose Ordered Sig/Citlaly Route PRN Reason Start Time Stop Time Status Last Admin Dose Admin Acetaminophen (TYLenol 325MG TAB) 650 mg Q6H PRN PO FEVER/MILD PAIN LEVEL 1-3 08/01/24 20:00 08/31/24 19:59 Acetaminophen (TYLenol 650MG SUPPOSITORY) 650 mg Q6H PRN RC FEVER / MILD PAIN 1-3 IF NPO 08/01/24 20:00 08/31/24 19:59 Albumin Human 100 ml @ 0 mls/hr AD IV 08/02/24 02:00 09/01/24 01:59 Albuterol (DUOneb) 1 udvial [id number] IH 08/01/24 22:00 08/31/24 21:59 08/02/24 06:37 1 UDVIAL Azithromycin 250 ml @ 250 mls/hr Q24H IVPB 08/02/24 14:00 09/02/24 14:00 08/02/24 15:09 250 MLS/HR Budesonide (Pulmicort 0.5 Mg/2ml) 0.5 mg BIDRESP IH 08/01/24 20:10 08/31/24 20:09 08/02/24 11:14 0.5 MG Cefepime HCl (MAXipime 1 GM vial) 1 gm Q12H IVPB 08/02/24 04:00 08/12/24 03:59 08/02/24 05:59 1 GM Dextrose (D50w) 50 ml AD PRN IV HYPOGLYCEMIA PROTOCOL 08/02/24 01:00 09/01/24 00:59 Docusate Sodium (COLace 100MG CAP) 100 mg BID PRN PO CONSTIPATION 08/01/24 20:00 08/31/24 19:59 Glucagon (Glucagon 1mg Kit) 1 mg AD PRN IM HYPOGLYCEMIA PROTOCOL 08/02/24 01:00 09/01/24 00:59 Heparin Sodium (Porcine) (HEParin 5,000 UNIT VIAL) *calculation based on ACTUAL B... AD PRN IV HEPARIN PROTOCOL 08/01/24 23:30 08/31/24 23:29 08/01/24 22:37 5,000 UNIT Heparin Sodium/ Dextrose 250 ml @ 0 mls/hr PROTOCOL IV 08/01/24 22:00 08/31/24 21:59 Heparin Sodium/ Dextrose 250 ml @ 0 mls/hr Q6H IV 08/01/24 23:30 08/02/24 13:54 DC 08/01/24 22:54 11 MLS/HR Hydralazine HCl (APRESOLine 20MG INJ) 10 mg Q2H PRN IV SBP GREATER THAN 160 08/01/24 20:00 08/31/24 19:59 Insulin Human Regular (humuLIN R 100 UNIT/ML 3ML) INSULIN SLIDING SCAL... ACHS SQ 08/01/24 21:00 08/31/24 20:59 Ipratropium Elba (AtrovENT UD) 0.5 mg [id number] IH 08/01/24 20:10 08/31/24 20:09 08/02/24 11:13 0.5 MG Lactulose (Constulose 20gm/ 30ml Udcup) 20 gm Q6H PRN PO CONSTIPATION 08/01/24 20:00 08/31/24 19:59 Magnesium Sulfate 50 ml @ 0 mls/hr PROTOCOL PRN IV MAGNESIUM PROTOCOL 08/02/24 01:00 09/01/24 00:59 Midodrine (PROAMatine 5 MG TABLET) 10 mg TID PO 08/01/24 21:30 08/31/24 21:29 08/02/24 15:09 10 MG Norepinephrine 250 ml @ 23.813 mls/ hr PROTOCOL IV 08/02/24 01:30 09/01/24 01:29 08/02/24 01:35 23.813 MLS/HR Ondansetron HCl (zoFRAN 4MG INJ) 4 mg Q6H PRN IVP NAUSEA/VOMITING 08/01/24 20:00 08/31/24 19:59 Pantoprazole Sodium (PROTonix 40MG TAB) 40 mg DAILY PO 08/02/24 09:00 09/01/24 08:59 08/02/24 10:13 40 MG Piperacillin Sod/ Tazobactam Sod (Zosyn 3.375gm+NS 50ml) 3.375 gm ONCE STAT IV 08/01/24 19:40 08/01/24 19:43 DC 08/01/24 20:16 3.375 GM Potassium Chloride 100 ml @ 100 mls/hr AD PRN IV POTASSIUM PROTOCOL 08/02/24 01:00 09/01/24 00:59 Potassium Chloride (K-Dur/Klor-Con 20meq) 10 meq AD PRN PO POTASSIUM PROTOCOL 08/02/24 01:00 09/01/24 00:59 Potassium Chloride (KCl 10% Elixir 20meq/15ml) 10 meq AD PRN PO POTASSIUM PROTOCOL 08/02/24 01:00 09/01/24 00:59 Sodium Chloride 250 ml @ 250 mls/hr Q1H IV 08/01/24 20:00 08/01/24 23:00 DC 08/01/24 23:50 250 MLS/HR Temazepam (restORIL 15 MG CAP) 15 mg HS PRN PO INSOMNIA/SLEEP 08/01/24 20:00 08/31/24 19:59 Vancomycin HCl 250 ml @ 125 mls/hr Q24H IV 08/02/24 20:00 08/12/24 19:59 Vancomycin HCl (Vancomycin Protocol) 1 each AD IV 08/01/24 20:00 08/15/24 19:59 Vancomycin HCl (Vancomycin 1g/ 250ml Kit) 1 gm ONCE STAT IV 08/01/24 19:40 08/01/24 19:43 DC 08/01/24 21:07 1 GM DIAGNOSTICS / RADIOLOGY: [ ] ASSESSMENT: Sepsis with septic shock, POA, in need of pressors Exacerbation of COPD, POA Right lung reticular nodular infiltrates, per CT on 08/01/2024, POA Right lung pneumonia, POA Interstitial fibrosis, POA Right pleural effusion, small Elevated D-dimer levels POA -Non occlusive DVT in both LE, as per Venous Doppler US on 07/06/24 -Thrombosed right lower lobe pulmonary veins, as per CT chest on 07/06 -Intracardiac thrombosis [left atrium], as per CT chest on 07/06 Acute hypoxemic respiratory failure, POA, 2/2 above Leukocytosis/lactic acidosis Acute dehydration (ketonuria, elevated creatinine) Chronic Systolic heart failure with ejection fraction of 45-50% Acute kidney injury, POA GFR 55 Acute on chronic kidney disease, GFR 66 on 07/19/2024 Electrolyte derangement (hyponatremia, hypochloremia, hypocalcemia) Atrial fibrillation with controlled rate Acute on chronic anemia, POA Hyperglycemia without history of diabetes mellitus Elevated BNP Right-sided hiatal hernia, POA Homelessness, POA Medication noncompliance Chronic Intermittent B/L lower extremity pain, POA PLAN: Continue PCCU Monitor respiratory status closely. Continue oxygen therapy as needed. Titrate oxygen to keep SpO2 equal to greater than 92%. Continue heparin drip for now (due to patient has not been taking his Eliquis for the thrombus) Continue Atrovent q.6 hours scheduled. Continue Pulmicort nebulizer treatments b.i.d. scheduled. Rossibs p.r.n. shortness of breath. RT to provide IS and education on use. Continue Vancomycin IV, cefepime IV Cardiology consulted, appreciate recommendations P.r.n. medications for: Pain management, fever, nausea, vomiting, constipation. Disposition: Pending V/Q scan, improvement in clinical status, cardiology recommendations NAN MACHADO MD Aug 02, 2024 16:03
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
[2024-08-02] MEDS ORDERED: PHARMACY COMMUNICATION MISC SCH (20:00)
[2024-08-02] MEDS: LACTATED RINGERS 1000ML IV ONE (20:28)
[2024-08-02] MEDS: VANCOMYCIN 1.25 GM/250 ML BAG 250 ML IV SCH (20:36)
[2024-08-03] VITALS (23 sets, daily range): BP systolic 72–109; BP diastolic 43–74; PULSE 60–93; RESP 12–26; TEMP 97.2–98.6; O2SAT 96–98
[2024-08-03] MEDS: HEParin 25,000 UNITS/250ML D5W 250 ML IV SCH (00:10)
[2024-08-03 04:07] LABS: BASOPHILS # (AUTO) 0.07 K/uL (0.00-0.20); BASOPHILS % (AUTO) 0.6 % (0.0-5.0); EOSINOPHILS # (AUTO) 0.12 K/uL (0.00-0.70); HEMATOCRIT 26.5 % (42-54); IMMATURE GRANULOCYTE ABSOLUTE 0.06 K/uL (0-1); LYMPHOCYTES # (AUTO) 2.1 K/uL (1.0-4.8); LYMPHOCYTES % (AUTO) 17.2 % (21.0-51.0); MEAN CORPUSCULAR HGB CONC 33.2 g/dL (32.0-36.0); MEAN CORPUSCULAR VOLUME 93.3 fL (79-99); MONOCYTES # (AUTO) 0.9 K/uL (0.1-1.0); MONOCYTES % (AUTO) 7.5 % (3.0-13.0); NEUTROPHILS % (AUTO) 73.2 % (40.0-77.0); PLATELET COUNT (AUTO) 313 K/uL (130-400); RED BLOOD CELL COUNT(AUTO) 2.84 MIL/uL (4.50-6.20); RED CELL DISTRIBUTION WIDTH 13.2 % (11.0-15.5); WHITE BLOOD COUNT (AUTO) 12.3 K/uL (4.8-10.8)
[2024-08-03 04:21] LABS: CREATININE 1.1 mg/dL (0.5-1.3); MAGNESIUM 1.6 mg/dL (1.80-2.40); PHOSPHORUS 2.9 mg/dL (2.5-4.9)
[2024-08-03] MEDS: APIXaban 5 MG TABLET PO SCH (08:09)
[2024-08-03] MEDS: MAGNESIUM 2GM PREMIX 50ML 50 ML IV PRN (08:10)
[2024-08-03 08:12] LABS: HEMATOCRIT 27.6 % (42-54); MEAN CORPUSCULAR HEMOGLOBIN 30.7 pg (27.0-33.0); MEAN CORPUSCULAR HGB CONC 32.6 g/dL (32.0-36.0); MEAN CORPUSCULAR VOLUME 94.2 fL (79-99); RED BLOOD CELL COUNT(AUTO) 2.93 MIL/uL (4.50-6.20); RED CELL DISTRIBUTION WIDTH 13.2 % (11.0-15.5); WHITE BLOOD COUNT (AUTO) 11.5 K/uL (4.8-10.8)
[2024-08-03] MEDS: IpraTROPium/alBUTERol SULFATE 3 ML SOLUTION IH ONE (11:33)
[2024-08-03] MEDS: LACTATED RINGERS 1000ML IV ONE (11:35)
[2024-08-03] MEDS: IpraTROPium/alBUTERol SULFATE 3 ML SOLUTION IH SCH (11:36)
[2024-08-03] MEDS: SODIUM CHLORIDE 3% FOR INHALATION 4 ML/AMP VIAL.NEB IH ONE ×3 (11:39→23:05)
[2024-08-03] MEDS: miDODRine HCL 5 MG TABLET PO SCH (13:49)
--- NOTE | 2024-08-03 14:00 | NUR ---
BEDSIDE SWALLOW EVAL COMPLETED. No s/s of aspiration. Recommend regular solids, thin liquids and pills whole with liquids as tolerated. Compensatory strategies: 1. sit upright during oral intake DIDACTIC INSTRUCTOR reviewed results and recommendations with patient and nurse Laith. DIDACTIC INSTRUCTOR educated patient on risks and consequences of aspiration. Speech therapy not warranted. All questions answered. Addendum: 08/03/[address] STACY DACOSTA Amended: Links added.
--- NOTE | 2024-08-03 15:08 | PN ---
[facility] PROGRESS NOTE Date of Service: Aug 03, 2024 Time of Service: 15:03 SUBJECTIVE: 08/02 patient seen at bedside, no acute events overnight. V/Q scan pending, we will follow up. Venous Dopplers positive for thrombus, we will continue heparin drip. WBC improved from 20/5 down to 21, hemoglobin decreased from 11.0 down [address]. CT of chest showing pulmonary infiltrates on the right side, we will continue with antibiotics. 08/03 patient seen at bedside, no acute events overnight. Patient will be transitioned from heparin to apixaban. Cultures are no growth to date, sputum culture still pending. WBC improved from 12.3 down to 11.5, hemoglobin improved from 8.8 up to 9.0, remainder of his labs are relatively unremarkable. REVIEW OF SYSTEMS 12-point ROS reviewed with patient. All pertinent positives mentioned above. Otherwise negative, non-pertinent, or noncontributory. PHYSICAL EXAM GENERAL APPEARANCE: The patient is awake, alert, and oriented. Ungroomed, his close is dirty, and has body foul odor. NEUROLOGICAL: Cranial nerves II-XII grossly intact. Motor is 5/5 in bilateral upper and lower extremities proximal to distal. No sensory deficits. HEENT: Face is symmetric. Pupils are equal and reactive. Extraocular movements are intact. NECK: Supple. No JVD. No thyromegaly. No submental, submandibular, pre-/post auricular, occipital or supraclavicular lymphadenopathy. CHEST: Normal chest expansion. No Telemetry. LUNGS: Tachypneic, diminished. No rhonchi or wheezing. Has productive thick phlegm. CARDIOVASCULAR: Regular. S1 and S2 normal. No appreciable rubs, murmurs or gallops. ABDOMEN: Soft, nontender, and nondistended. There is no rebound, voluntary gu arding, or rigidity. : Deferred. No Avery. EXTREMITIES: Non-edematous and not cyanotic. No clubbing. Good capillary refill. SKIN: No skin breakdown. Vital Signs (last 8hr) Date Time Temp Pulse Resp B/P (MAP) Pulse Ox O2 Delivery O2 Flow Rate FiO2 08/03/24 14:00 N/C Nasal Cannula 08/03/24 14:00 76 14 94/60 (71) 99 08/03/24 13:00 79 23 90/60 (70) 98 08/03/24 12:00 98.4 88 17 90/59 (69) 96 08/03/24 12:00 98.1 08/03/24 12:00 98 Nasal Cannula* 2 28 08/03/24 11:40 67 18 08/03/24 11:00 71 19 72/43 (53) 99 08/03/24 10:00 66 21 96/55 (69) 96 08/03/24 09:00 72 21 85/59 (68) 98 08/03/24 08:00 98.1 08/03/24 08:00 98.1 93 19 106/64 (78) 94 08/03/24 08:00 97 Nasal Cannula* 2 28 LABS: Laboratory: Test 08/03/24 07:39 08/03/24 06:07 08/03/24 03:51 08/03/24 01:29 Range/Units White Blood Count 11.5 H 4.8-10.8 K/uL Red Blood Count 2.93 L 4.50-6.20 MIL/uL Hemoglobin 9.0 L 14.0-18.0 g/dL Hematocrit 27.6 L 42-54 % Mean Corpuscular Volume 94.2 79-99 fL Mean Corpuscular Hemoglobin 30.7 27.0-33.0 pg Mean Corpuscular Hemoglobin Concent 32.6 32.0-36.0 g/dL Red Cell Distribution Width 13.2 11.0-15.5 % Platelet Count 317 130-400 K/uL Mean Platelet Volume 8.9 7.5-10.5 fL Nucleated Red Blood Cells 0.0 0.0-0.19 % Whole Blood Glucose 90 70-110 MG/DL Immature Granulocyte % (Auto) 0.5 0-1 % Neutrophils (%) (Auto) 73.2 40.0-77.0 % Lymphocytes (%) (Auto) 17.2 L 21.0-51.0 % Monocytes (%) (Auto) 7.5 3.0-13.0 % Eosinophils (%) (Auto) 1.0 0.0-8.0 % Basophils (%) (Auto) 0.6 0.0-5.0 % Neutrophils # (Auto) 9.0 H 1.8-7.7 K/uL Lymphocytes # (Auto) 2.1 1.0-4.8 K/uL Monocytes # (Auto) 0.9 0.1-1.0 K/uL Eosinophils # (Auto) 0.12 0.00-0.70 K/uL Basophils # (Auto) 0.07 0.00-0.20 K/uL Absolute Immature Granulocyte (auto 0.06 0-1 K/uL Sodium Level 139 136-145 mmol/L Potassium Level 4.0 3.5-5.1 mmol/L Chloride Level 108 101-111 mmol/L Carbon Dioxide Level 25 21-32 mmol/L Blood Urea Nitrogen 11 7-18 mg/dL Creatinine 1.1 0.5-1.3 mg/dL Glomerular Filtration Rate Calc 74 >90 mL/min Random Glucose 89 70-105 mg/dL Total Calcium 8.1 L 8.5-10.1 mg/dL Phosphorus Level 2.9 2.5-4.9 mg/dL Magnesium Level 1.60 L 1.80-2.40 mg/dL Activated Partial Thromboplast Time 56.7 #H 26.3-35.5 SEC Test 08/02/24 06:48 08/01/24 23:30 08/01/24 22:46 08/01/24 20:08 Range/Units Thyroid Stimulating Hormone (TSH) 4.95 #H 0.36-3.74 uIU/mL Lactic Acid Level 2.3 0.8-2.5 mmol/L Influenza Type A Antigen Negative For Type A NEGATIVE Influenza Type B Antigen Negative For Type B NEGATIVE SARS-CoV-2, RNA, NAAT NEGATIVE SARS CoV-2 NEGATIVE Blood Gas Specimen Type Arterial Arterial Blood pH 7.510 H 7.350-7.450 Arterial Blood Partial Pressure CO2 28 L 35-48 mmHg Arterial Blood Partial Pressure O2 65.9 L 83.0-108.0 mmHg Arterial Blood HCO3 22.1 21.0-28.0 mmol/L Arterial Blood Oxygen Saturation 93.9 L 94.0-98.0 % Arterial Blood Base Excess 0.1 -2.0-3.0 mmol/L Hemoglobin (Blood Gas) 12.9 L 13.5-17.5 g/dL Sodium (Blood Gas) 129 L 136-145 MMOL/L Bedside Potassium (Blood Gas) 4.4 3.4-4.5 MMOL/L Bedside Chloride (Blood Gas) 98 98-107 MMOL/L Bedside Glucose (Blood Gas) 137 H 65-95 MG/DL Bedside Ionized Calcium (Blood Gas) 1.14 L 1.15-1.33 MMOL/L Bedside Lactic Acid (Blood Gas) 2.64 H 0.36-0.75 MMOL/L Blood Gas Temperature 37.0 35.5-37.0 CELSIUS Blood Gas Vent Mode RA ROOM AIR FiO2 21.0 % Blood Gas Specimen Comment RR RN Test 08/01/24 19:50 08/01/24 15:26 08/01/24 15:20 Range/Units D-Dimer Quantitative (PE/DVT) 805 *H 0-500 ng/mL B-Type Natriuretic Peptide 128 H 0-100 pg/mL Lipase 12 L 16-77 U/L White Cell Morphology Comment See comments Urine Color YELLOW YELLOW Urine Appearance CLOUDY H CLEAR Urine pH 5.5 5.0-8.0 Urine Specific [place] 1.027 1.001-1.031 Urine Protein 30 H NEGATIVE mg/dL Urine Glucose (UA) 30 H NEGATIVE mg/dL Urine Ketones 5 H NEGATIVE mg/dL Urine Occult Blood NEGATIVE NEGATIVE Urine Nitrate NEGATIVE NEGATIVE Urine Bilirubin NEGATIVE NEGATIVE mg/dL Urine Urobilinogen 2.0 H 0.2-1.0 mg/dL Urine Leukocyte Esterase NEGATIVE NEGATIVE Shelley/uL Urine RBC 2-5 H 0-1 /HPF Urine WBC 6-10 H 0-1 /HPF Urine Squamous Epithelial Cells FEW 0-2 /HPF Urine Bacteria FEW None Seen /HPF Urine Hyaline Casts 26-50 H 0-1 /LPF /LPF Urine Other Casts 2 None Seen /LPF Urine Opiates Screen NEGATIVE NEGATIVE Urine Barbiturates Screen NEGATIVE NEGATIVE Urine Phencyclidine Screen NEGATIVE NEGATIVE Urine Amphetamines Screen NEGATIVE NEGATIVE Urine Benzodiazepines Screen NEGATIVE NEGATIVE Urine Cocaine Screen NEGATIVE NEGATIVE Urine Marijuana (THC) Screen NEGATIVE NEGATIVE Current Medications Medications (Trade) Dose Ordered Sig/Citlaly Route PRN Reason Start Time Stop Time Status Last Admin Dose Admin Acetaminophen (TYLenol 325MG TAB) 650 mg Q6H PRN PO FEVER/MILD PAIN LEVEL 1-3 08/01/24 20:00 08/31/24 19:59 Acetaminophen (TYLenol 650MG SUPPOSITORY) 650 mg Q6H PRN RC FEVER / MILD PAIN 1-3 IF NPO 08/01/24 20:00 08/31/24 19:59 Albumin Human 100 ml @ 0 mls/hr AD IV 08/02/24 02:00 09/01/24 01:59 Albuterol (DUOneb) 1 udvial [id number] IH 08/01/24 22:00 08/03/24 10:19 DC 08/02/24 06:37 1 UDVIAL Albuterol (DUOneb) 1 udvial [id number] IH 08/03/24 12:00 08/31/24 21:59 08/03/24 11:36 1 UDVIAL Apixaban (EliquIS) 10 mg BID PO 08/03/24 07:30 08/10/24 07:29 08/03/24 08:09 10 MG Azithromycin 250 ml @ 250 mls/hr Q24H IVPB 08/02/24 14:00 08/03/24 07:18 DC 08/02/24 15:09 250 MLS/HR Budesonide (Pulmicort 0.5 Mg/2ml) 0.5 mg BIDRESP IH 08/01/24 20:10 08/31/24 20:09 08/03/24 06:26 0.5 MG Cefepime HCl (MAXipime 1 GM vial) 1 gm Q12H IVPB 08/02/24 04:00 08/12/24 03:59 08/03/24 05:14 1 GM Dextrose (D50w) 50 ml AD PRN IV HYPOGLYCEMIA PROTOCOL 08/02/24 01:00 09/01/24 00:59 Docusate Sodium (COLace 100MG CAP) 100 mg BID PRN PO CONSTIPATION 08/01/24 20:00 08/31/24 19:59 Glucagon (Glucagon 1mg Kit) 1 mg AD PRN IM HYPOGLYCEMIA PROTOCOL 08/02/24 01:00 09/01/24 00:59 Heparin Sodium (Porcine) (HEParin 5,000 UNIT VIAL) *calculation based on ACTUAL B... AD PRN IV HEPARIN PROTOCOL 08/01/24 23:30 08/03/24 07:29 DC 08/01/24 22:37 5,000 UNIT Heparin Sodium/ Dextrose 250 ml @ 0 mls/hr PROTOCOL IV 08/01/24 22:00 08/03/24 07:21 DC 08/03/24 00:10 9.6 MLS/HR Heparin Sodium/ Dextrose 250 ml @ 0 mls/hr Q6H IV 08/01/24 23:30 08/02/24 13:54 DC 08/01/24 22:54 11 MLS/HR Hydralazine HCl (APRESOLine 20MG INJ) 10 mg Q2H PRN IV SBP GREATER THAN 160 08/01/24 20:00 08/31/24 19:59 Insulin Human Regular (humuLIN R 100 UNIT/ML 3ML) INSULIN SLIDING SCAL... ACHS SQ 08/01/24 21:00 08/03/24 11:13 DC Ipratropium [place] (AtrovENT UD) 0.5 mg [id number] IH 08/01/24 20:10 08/03/24 10:15 DC 08/03/24 06:26 0.5 MG Lactulose (Constulose 20gm/ 30ml Udcup) 20 gm Q6H PRN PO CONSTIPATION 08/01/24 20:00 08/31/24 19:59 Magnesium Sulfate 50 ml @ 0 mls/hr PROTOCOL PRN IV MAGNESIUM PROTOCOL 08/02/24 01:00 09/01/24 00:59 08/03/24 08:10 25 MLS/HR Midodrine (PROAMatine 5 MG TABLET) 10 mg TID PO 08/01/24 21:30 08/03/24 11:13 DC 08/03/24 08:09 10 MG Midodrine (PROAMatine 5 MG TABLET) 15 mg TID PO 08/03/24 14:00 09/02/24 13:59 08/03/24 13:49 15 MG Norepinephrine 250 ml @ 23.813 mls/ hr PROTOCOL IV 08/02/24 01:30 09/01/24 01:29 08/02/24 01:35 23.813 MLS/HR Ondansetron HCl (zoFRAN 4MG INJ) 4 mg Q6H PRN IVP NAUSEA/VOMITING 08/01/24 20:00 08/31/24 19:59 Pantoprazole Sodium (PROTonix 40MG TAB) 40 mg DAILY PO 08/02/24 09:00 09/01/24 08:59 08/03/24 08:09 40 MG Pharmacy Profile Note (Pharmacy Communication) 1 each AD MISC 08/02/24 20:00 08/02/24 19:41 DC Piperacillin Sod/ Tazobactam Sod (Zosyn 3.375gm+NS 50ml) 3.375 gm ONCE STAT IV 08/01/24 19:40 08/01/24 19:43 DC 08/01/24 20:16 3.375 GM Potassium Chloride 100 ml @ 100 mls/hr AD PRN IV POTASSIUM PROTOCOL 08/02/24 01:00 09/01/24 00:59 Potassium Chloride (K-Dur/Klor-Con 20meq) 10 meq AD PRN PO POTASSIUM PROTOCOL 08/02/24 01:00 09/01/24 00:59 Potassium Chloride (KCl 10% Elixir 20meq/15ml) 10 meq AD PRN PO POTASSIUM PROTOCOL 08/02/24 01:00 09/01/24 00:59 Sodium Chloride 250 ml @ 250 mls/hr Q1H IV 08/01/24 20:00 08/01/24 23:00 DC 08/01/24 23:50 250 MLS/HR Temazepam (restORIL 15 MG CAP) 15 mg HS PRN PO INSOMNIA/SLEEP 08/01/24 20:00 08/31/24 19:59 Vancomycin HCl 250 ml @ 125 mls/hr Q24H IV 08/02/24 20:00 08/12/24 19:59 08/02/24 20:36 125 MLS/HR Vancomycin HCl (Vancomycin Protocol) 1 each AD IV 08/01/24 20:00 08/15/24 19:59 Vancomycin HCl (Vancomycin 1g/ 250ml Kit) 1 gm ONCE STAT IV 08/01/24 19:40 08/01/24 19:43 DC 08/01/24 21:07 1 GM DIAGNOSTICS / RADIOLOGY: [ ] ASSESSMENT: Sepsis with septic shock, POA, in need of pressors Exacerbation of COPD, POA Right lung reticular nodular infiltrates, per CT on 08/01/2024, POA Right lung pneumonia, POA Interstitial fibrosis, POA Right pleural effusion, small Elevated D-dimer levels POA -Non occlusive DVT in both LE, as per Venous Doppler US on 07/06/24 -Thrombosed right lower lobe pulmonary veins, as per CT chest on 07/06 -Intracardiac thrombosis [left atrium], as per CT chest on 07/06 Acute hypoxemic respiratory failure, POA, 2/2 above Leukocytosis/lactic acidosis Acute dehydration (ketonuria, elevated creatinine) Chronic Systolic heart failure with ejection fraction of 45-50% Acute kidney injury, POA GFR 55 Acute on chronic kidney disease, GFR 66 on 07/19/2024 Electrolyte derangement (hyponatremia, hypochloremia, hypocalcemia) Atrial fibrillation with controlled rate Acute on chronic anemia, POA Hyperglycemia without history of diabetes mellitus Elevated BNP Right-sided hiatal hernia, POA Homelessness, POA Medication noncompliance Chronic Intermittent B/L lower extremity pain, POA PLAN: Continue PCCU Monitor respiratory status closely. Continue oxygen therapy as needed. Titrate oxygen to keep SpO2 equal to greater than 92%. Discontinue heparin, start apixaban 10mg BID for 7 days, deescalate to 5mg BID Continue Atrovent q.6 hours scheduled. Continue Pulmicort nebulizer treatments b.i.d. scheduled. Kayla p.r.n. shortness of breath. RT to provide IS and education on use. Continue Vancomycin IV, cefepime IV, Azithromycin Pulmonology consulted, appreciate recommendations P.r.n. medications for: Pain management, fever, nausea, vomiting, constipation. Disposition: Pending sputum cultures NAN MACHADO MD Aug 03, 2024 15:08
--- NOTE | 2024-08-03 16:22 | NUR ---
PATIENT TRANSFERRED TO ROOM 223 VIA WHEELCHAIR. REPORT GIVEN TO Abdulaziz GIL RN. ALL QUESTIONS ANSWERED. PATIENT MOVED TO BED, ALL BELONGINGS TAKEN, AND RECONNECTED TO IV PUMP RUNNING ANTIBIOTICS. LEFT IN CARE OF NURSE AT BEDSIDE.
--- NOTE | 2024-08-03 16:51 | NUR ---
APPEARS COMFORTABLE. DENIES PAIN AT THIS TIME. TELEMETRY READS SR HR 63. INSTRUCTED TO CALL FOR ASSISTANCE, CALL LIGHT WITHIN REACH.
[2024-08-03] MEDS ORDERED: PoTASSium chloRIDE 10MEQ SR 10 MEQ/TAB TAB.SR.24H PO PRN (18:00)
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
[2024-08-04] VITALS (14 sets, daily range): BP systolic 97–121; BP diastolic 52–70; PULSE 61–100; RESP 18–20; TEMP 96.3–98.6; O2SAT 97–98
[2024-08-04 03:44] LABS: BASOPHILS # (AUTO) 0.07 K/uL (0.00-0.20); BASOPHILS % (AUTO) 0.5 % (0.0-5.0); EOSINOPHILS # (AUTO) 0.11 K/uL (0.00-0.70); EOSINOPHILS % (AUTO) 0.8 % (0.0-8.0); HEMATOCRIT 25.8 % (42-54); IMMATURE GRANULOCYTE ABSOLUTE 0.06 K/uL (0-1); LYMPHOCYTES # (AUTO) 1.7 K/uL (1.0-4.8); MEAN CORPUSCULAR HEMOGLOBIN 30.9 pg (27.0-33.0); MEAN CORPUSCULAR HGB CONC 32.9 g/dL (32.0-36.0); MEAN CORPUSCULAR VOLUME 93.8 fL (79-99); MONOCYTES % (AUTO) 7.6 % (3.0-13.0); NEUTROPHILS # (AUTO) 10.1 K/uL (1.8-7.7); NEUTROPHILS % (AUTO) 77.6 % (40.0-77.0); PLATELET COUNT (AUTO) 291 K/uL (130-400); RED BLOOD CELL COUNT(AUTO) 2.75 MIL/uL (4.50-6.20); RED CELL DISTRIBUTION WIDTH 13.4 % (11.0-15.5); WHITE BLOOD COUNT (AUTO) 13.1 K/uL (4.8-10.8)
[2024-08-04 04:02] LABS: CREATININE 1.1 mg/dL (0.5-1.3); POTASSIUM 3.7 mmol/L (3.5-5.1)
[2024-08-04] MEDS: IpraTROPium/alBUTERol SULFATE 3 ML SOLUTION IH ONE ×2 (07:23→11:37)
[2024-08-04] MEDS: BUDESONIDE 0.5 MG/2 ML INH IH ONE (07:24)
--- NOTE | 2024-08-04 11:40 | NUR ---
CM NOTE CM was notified by nursing that patient is in need of warm clothing when discharged home. CM notified Valencia FRITZ of needs.
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
[2024-08-05] VITALS (16 sets, daily range): BP systolic 110–141; BP diastolic 68–80; PULSE 55–98; RESP 16–19; TEMP 97.3–98.6; O2SAT 96–100
[2024-08-05 04:11] LABS: BASOPHILS # (AUTO) 0.06 K/uL (0.00-0.20); BASOPHILS % (AUTO) 0.6 % (0.0-5.0); EOSINOPHILS # (AUTO) 0.18 K/uL (0.00-0.70); EOSINOPHILS % (AUTO) 1.9 % (0.0-8.0); HEMATOCRIT 27.2 % (42-54); IMMATURE GRANULOCYTE ABSOLUTE 0.02 K/uL (0-1); LYMPHOCYTES # (AUTO) 1.9 K/uL (1.0-4.8); LYMPHOCYTES % (AUTO) 20.5 % (21.0-51.0); MEAN CORPUSCULAR HEMOGLOBIN 31.4 pg (27.0-33.0); MEAN CORPUSCULAR HGB CONC 33.5 g/dL (32.0-36.0); MEAN CORPUSCULAR VOLUME 93.8 fL (79-99); MONOCYTES # (AUTO) 0.9 K/uL (0.1-1.0); MONOCYTES % (AUTO) 9.3 % (3.0-13.0); NEUTROPHILS # (AUTO) 6.3 K/uL (1.8-7.7); NEUTROPHILS % (AUTO) 67.5 % (40.0-77.0); PLATELET COUNT (AUTO) 306 K/uL (130-400); RED CELL DISTRIBUTION WIDTH 13.3 % (11.0-15.5); WHITE BLOOD COUNT (AUTO) 9.3 K/uL (4.8-10.8)
[2024-08-05 04:28] LABS: CREATININE 0.9 mg/dL (0.5-1.3); POTASSIUM 4.2 mmol/L (3.5-5.1)
--- NOTE | 2024-08-05 08:09 | PN ---
[facility] PROGRESS NOTE Date of Service: Aug 04, 2024 Time of Service: 08:07 SUBJECTIVE: 08/02 patient seen at bedside, no acute events overnight. V/Q scan pending, we will follow up. Venous Dopplers positive for thrombus, we will continue heparin drip. WBC improved from 20/5 down to 21, hemoglobin decreased from 11.0 down to [address]. CT of chest showing pulmonary infiltrates on the right side, we will continue with antibiotics. 08/03 patient seen at bedside, no acute events overnight. Patient will be transitioned from heparin to apixaban. Cultures are no growth to date, sputum culture still pending. WBC improved from 12.3 down to 11.5, hemoglobin improved from 8.8 up to 9.0, remainder of his labs are relatively unremarkable. 08/04 this is a late dictation. Patient seen at bedside, no acute events overnight. His breathing has improved, we will continue with systemic steroids, nebulizers and empiric antibiotics. Sputum culture growing rare gram-positive cocci. Further recommendations per pulmonology. REVIEW OF SYSTEMS 12-point ROS reviewed with patient. All pertinent positives mentioned above. Otherwise negative, non-pertinent, or noncontributory. PHYSICAL EXAM GENERAL APPEARANCE: The patient is awake, alert, and oriented. Ungroomed, his close is dirty, and has body foul odor. NEUROLOGICAL: Cranial nerves II-XII grossly intact. Motor is 5/5 in bilateral upper and lower extremities proximal to distal. No sensory deficits. HEENT: Face is symmetric. Pupils are equal and reactive. Extraocular movements are intact. NECK: Supple. No JVD. No thyromegaly. No submental, submandibular, pre- /postauricular, occipital or supraclavicular lymphadenopathy. CHEST: Normal chest expansion. No Telemetry. LUNGS: Tachypneic, diminished. No rhonchi or wheezing. Has productive thick phlegm. CARDIOVASCULAR: Regular. S1 and S2 normal. No appreciable rubs, murmurs or gallops. ABDOMEN: Soft, nontender, and nondistended. There is no rebound, voluntary guarding, or rigidity. : Deferred. No Avery. EXTREMITIES: Non-edematous and not cyanotic. No clubbing. Good capillary refill. SKIN: No skin breakdown. Vital Signs (last 8hr) Date Time Temp Pulse Resp B/P (MAP) Pulse Ox O2 Delivery O2 Flow Rate FiO2 08/05/24 07:27 71 18 08/05/24 07:26 71 18 N/A Room Air 21 08/05/24 04:33 98.4 67 18 113/71 94 Nasal Cannula LABS: Laboratory: Test 08/05/24 05:17 08/05/24 03:36 08/04/24 18:35 Range/Units Whole Blood Glucose 102 70-110 MG/DL White Blood Count 9.3 4.8-10.8 K/uL Red Blood Count 2.90 L 4.50-6.20 MIL/uL Hemoglobin 9.1 L 14.0-18.0 g/dL Hematocrit 27.2 L 42-54 % Mean Corpuscular Volume 93.8 79-99 fL Mean Corpuscular Hemoglobin 31.4 27.0-33.0 pg Mean Corpuscular Hemoglobin Concent 33.5 32.0-36.0 g/dL Red Cell Distribution Width 13.3 11.0-15.5 % Platelet Count 306 130-400 K/uL Mean Platelet Volume 9.0 7.5-10.5 fL Immature Granulocyte % (Auto) 0.2 0-1 % Neutrophils (%) (Auto) 67.5 40.0-77.0 % Lymphocytes (%) (Auto) 20.5 L 21.0-51.0 % Monocytes (%) (Auto) 9.3 3.0-13.0 % Eosinophils (%) (Auto) 1.9 0.0-8.0 % Basophils (%) (Auto) 0.6 0.0-5.0 % Neutrophils # (Auto) 6.3 1.8-7.7 K/uL Lymphocytes # (Auto) 1.9 1.0-4.8 K/uL Monocytes # (Auto) 0.9 0.1-1.0 K/uL Eosinophils # (Auto) 0.18 0.00-0.70 K/uL Basophils # (Auto) 0.06 0.00-0.20 K/uL Absolute Immature Granulocyte (auto 0.02 0-1 K/uL Nucleated Red Blood Cells 0.0 0.0-0.19 % Sodium Level 140 136-145 mmol/L Potassium Level 4.2 3.5-5.1 mmol/L Chloride Level 106 101-111 mmol/L Carbon Dioxide Level 27 21-32 mmol/L Blood Urea Nitrogen 8 7-18 mg/dL Creatinine 0.9 0.5-1.3 mg/dL Glomerular Filtration Rate Calc 94 >90 mL/min Random Glucose 91 70-105 mg/dL Total Calcium 8.4 L 8.5-10.1 mg/dL Vancomycin Level Trough 11.8 10.0-20.0 UG/ML Current Medications Medications (Trade) Dose Ordered Sig/Citlaly Route PRN Reason Start Time Stop Time Status Last Admin Dose Admin Acetaminophen (TYLenol 325MG TAB) 650 mg Q6H PRN PO FEVER/MILD PAIN LEVEL 1-3 08/01/24 20:00 08/31/24 19:59 Acetaminophen (TYLenol 650MG SUPPOSITORY) 650 mg Q6H PRN RC FEVER / MILD PAIN 1-3 IF NPO 08/01/24 20:00 08/31/24 19:59 Albumin Human 100 ml @ 0 mls/hr AD IV 08/02/24 02:00 08/03/24 17:32 DC Albuterol (DUOneb) 1 udvial [id number] IH 08/01/24 22:00 08/03/24 10:19 DC 08/02/24 06:37 1 UDVIAL Albuterol (DUOneb) 1 udvial [id number] IH 08/03/24 12:00 08/31/24 21:59 08/05/24 07:27 1 UDVIAL Apixaban (EliquIS) 10 mg BID PO 08/03/24 07:30 08/10/24 07:29 08/04/24 20:36 10 MG Azithromycin 250 ml @ 250 mls/hr Q24H IVPB 08/02/24 14:00 08/03/24 07:18 DC 08/02/24 15:09 250 MLS/HR Budesonide (Pulmicort 0.5 Mg/2ml) 0.5 mg BIDRESP IH 08/01/24 20:10 08/31/24 20:09 08/05/24 07:27 0.5 MG Cefepime HCl (MAXipime 1 GM vial) 1 gm Q12H IVPB 08/02/24 04:00 08/12/24 03:59 08/05/24 03:51 1 GM Dextrose (D50w) 50 ml AD PRN IV HYPOGLYCEMIA PROTOCOL 1/7/25 01:00 09/01/24 00:59 Docusate Sodium (COLace 100MG CAP) 100 mg BID PRN PO CONSTIPATION 08/01/24 20:00 08/31/24 19:59 Glucagon (Glucagon 1mg Kit) 1 mg AD PRN IM HYPOGLYCEMIA PROTOCOL 08/02/24 01:00 09/01/24 00:59 Heparin Sodium (Porcine) (HEParin 5,000 UNIT VIAL) *calculation based on ACTUAL B... AD PRN IV HEPARIN PROTOCOL 08/01/24 23:30 08/03/24 07:29 DC 08/01/24 22:37 5,000 UNIT Heparin Sodium/ Dextrose 250 ml @ 0 mls/hr PROTOCOL IV 08/01/24 22:00 08/03/24 07:21 DC 08/03/24 00:10 9.6 MLS/HR Heparin Sodium/ Dextrose 250 ml @ 0 mls/hr Q6H IV 08/01/24 23:30 08/02/24 13:54 DC 08/01/24 22:54 11 MLS/HR Hydralazine HCl (APRESOLine 20MG INJ) 10 mg Q2H PRN IV SBP GREATER THAN 160 08/01/24 20:00 08/31/24 19:59 Insulin Human Regular (humuLIN R 100 UNIT/ML 3ML) INSULIN SLIDING SCAL... ACHS SQ 08/01/24 21:00 08/03/24 11:13 DC Ipratropium [place] (AtrovENT UD) 0.5 mg [id number] IH 08/01/24 20:10 08/03/24 10:15 DC 08/03/24 06:26 0.5 MG Lactulose (Constulose 20gm/ 30ml Udcup) 20 gm Q6H PRN PO CONSTIPATION 08/01/24 20:00 08/31/24 19:59 Magnesium Sulfate 50 ml @ 0 mls/hr PROTOCOL PRN IV MAGNESIUM PROTOCOL 08/02/24 01:00 09/01/24 00:59 08/03/24 08:10 25 MLS/HR Midodrine (PROAMatine 5 MG TABLET) 10 mg TID PO 08/01/24 21:30 08/03/24 11:13 DC 08/03/24 08:09 10 MG Midodrine (PROAMatine 5 MG TABLET) 15 mg TID PO 08/03/24 14:00 09/02/24 13:59 08/04/24 20:35 15 MG Norepinephrine 250 ml @ 23.813 mls/ hr PROTOCOL IV 08/02/24 01:30 09/01/24 01:29 08/02/24 01:35 23.813 MLS/HR Ondansetron HCl (zoFRAN 4MG INJ) 4 mg Q6H PRN IVP NAUSEA/VOMITING 08/01/24 20:00 08/31/24 19:59 Pantoprazole Sodium (PROTonix 40MG TAB) 40 mg DAILY PO 08/02/24 09:00 09/01/24 08:59 08/04/24 09:19 40 MG Pharmacy Profile Note (Pharmacy Communication) 1 each AD MISC 08/02/24 20:00 08/02/24 19:41 DC Piperacillin Sod/ Tazobactam Sod (Zosyn 3.375gm+NS 50ml) 3.375 gm ONCE STAT IV 08/01/24 19:40 08/01/24 19:43 DC 08/01/24 20:16 3.375 GM Potassium Chloride 100 ml @ 100 mls/hr AD PRN IV POTASSIUM PROTOCOL 08/02/24 01:00 09/01/24 00:59 Potassium Chloride (K-Dur 10meq Sr Tab) 10 meq AD PRN PO POTASSIUM PROTOCOL 08/03/24 18:00 09/01/24 00:59 Potassium Chloride (K-Dur/Klor-Con 20meq) 10 meq AD PRN PO POTASSIUM PROTOCOL 08/02/24 01:00 08/03/24 17:33 DC Potassium Chloride (KCl 10% Elixir 20meq/15ml) 10 meq AD PRN PO POTASSIUM PROTOCOL 08/02/24 01:00 09/01/24 00:59 Sodium Chloride 250 ml @ 250 mls/hr Q1H IV 08/01/24 20:00 08/01/24 23:00 DC 08/01/24 23:50 250 MLS/HR Temazepam (restORIL 15 MG CAP) 15 mg HS PRN PO INSOMNIA/SLEEP 08/01/24 20:00 08/31/24 19:59 Vancomycin HCl 250 ml @ 125 mls/hr Q24H IV 08/02/24 20:00 08/12/24 19:59 08/04/24 20:35 125 MLS/HR Vancomycin HCl (Vancomycin Protocol) 1 each AD IV 08/01/24 20:00 08/15/24 19:59 Vancomycin HCl (Vancomycin 1g/ 250ml Kit) 1 gm ONCE STAT IV 08/01/24 19:40 08/01/24 19:43 DC 08/01/24 21:07 1 GM DIAGNOSTICS / RADIOLOGY: [ ] ASSESSMENT: Sepsis with septic shock, POA, in need of pressors Exacerbation of COPD, POA Right lung reticular nodular infiltrates, per CT on 08/01/2024, POA Right lung pneumonia, POA Interstitial fibrosis, POA Right pleural effusion, small Elevated D-dimer levels POA -Non occlusive DVT in both LE, as per Venous Doppler US on 07/06/24 -Thrombosed right lower lobe pulmonary veins, as per CT chest on 07/06 -Intracardiac thrombosis [left atrium], as per CT chest on 07/06 Acute hypoxemic respiratory failure, POA, 2/2 above Leukocytosis/lactic acidosis Acute dehydration (ketonuria, elevated creatinine) Chronic Systolic heart failure with ejection fraction of 45-50% Acute kidney injury, POA GFR 55 Acute on chronic kidney disease, GFR 66 on 07/19/2024 Electrolyte derangement (hyponatremia, hypochloremia, hypocalcemia) Atrial fibrillation with controlled rate Acute on chronic anemia, POA Hyperglycemia without history of diabetes mellitus Elevated BNP Right-sided hiatal hernia, POA Homelessness, POA Medication noncompliance Chronic Intermittent B/L lower extremity pain, POA PLAN: Continue PCCU Monitor respiratory status closely. Continue oxygen therapy as needed. Titrate oxygen to keep SpO2 equal to greater than 92%. Discontinue heparin, start apixaban 10mg BID for 7 days, deescalate to 5mg BID Continue Atrovent q.6 hours scheduled. Continue Pulmicort nebulizer treatments b.i.d. scheduled. Kayla p.r.n. shortness of breath. RT to provide IS and education on use. Continue Vancomycin IV, cefepime IV, Azithromycin Pulmonology consulted, appreciate recommendations P.r.n. medications for: Pain management, fever, nausea, vomiting, constipation. Disposition: Pending sputum cultures, improvement in clinical status NAN MACHADO MD Aug 05, 2024 08:09
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
--- NOTE | 2024-08-05 13:02 | PN ---
[facility] PROGRESS NOTE Date of Service: Aug 05, 2024 Time of Service: 12:46 SUBJECTIVE: 08/02 patient seen at bedside, no acute events overnight. V/Q scan pending, we will follow up. Venous Dopplers positive for thrombus, we will continue heparin drip. WBC improved from 20/5 down to 21, hemoglobin decreased from 11.0 down to [address]. CT of chest showing pulmonary infiltrates on the right side, we will continue with antibiotics. 08/03 patient seen at bedside, no acute events overnight. Patient will be transitioned from heparin to apixaban. Cultures are no growth to date, sputum culture still pending. WBC improved from 12.3 down to 11.5, hemoglobin improved from 8.8 up to 9.0, remainder of his labs are relatively unremarkable. 08/04 Patient seen at bedside, no acute events overnight. His breathing has improved, we will continue with systemic steroids, nebulizers and empiric antibiotics. Sputum culture growing rare gram-positive cocci. Further recommendations per pulmonology. 08/05 Pt seen at bedside, no acute events overnight. PT to evaluate patient. Pt is homeless, given the weather, case management consulted to assist with safe placement. Further recommendations per pulmonology REVIEW OF SYSTEMS 12-point ROS reviewed with patient. All pertinent positives mentioned above. Otherwise negative, non-pertinent, or noncontributory. PHYSICAL EXAM GENERAL APPEARANCE: The patient is awake, alert, and oriented. Ungroomed, his close is dirty, and has body foul odor. NEUROLOGICAL: Cranial nerves II-XII grossly intact. Motor is 5/5 in bilateral upper and lower extremities proximal to distal. No sensory deficits. HEENT: Face is symmetric. Pupils are equal and reactive. Extraocular movements are intact. NECK: Supple. No JVD. No thyromegaly. No submental, submandibular, pre- /postauricular, occipital or supraclavicular lymphadenopathy. CHEST: Normal chest expansion. No Telemetry. LUNGS: Tachypneic, diminished. No rhonchi or wheezing. Has productive thick phlegm. CARDIOVASCULAR: Regular. S1 and S2 normal. No appreciable rubs, murmurs or gallops. ABDOMEN: Soft, nontender, and nondistended. There is no rebound, voluntary guarding, or rigidity. : Deferred. No Avery. EXTREMITIES: Non-edematous and not cyanotic. No clubbing. Good capillary refill. SKIN: No skin breakdown. Vital Signs (last 8hr) Date Time Temp Pulse Resp B/P (MAP) Pulse Ox O2 Delivery O2 Flow Rate FiO2 08/05/24 12:02 97.9 61 16 123/77 95 Room Air 08/05/24 11:51 55 18 08/05/24 11:50 55 18 N/A Room Air 21 08/05/24 09:00 100 Nasal Cannula* 2 28 08/05/24 08:18 98.2 65 16 130/80 100 Room Air 08/05/24 07:27 71 18 08/05/24 07:26 71 18 N/A Room Air 21 LABS: Laboratory: Test 08/05/24 05:17 08/05/24 03:36 08/04/24 18:35 Range/Units Whole Blood Glucose 102 70-110 MG/DL White Blood Count 9.3 4.8-10.8 K/uL Red Blood Count 2.90 L 4.50-6.20 MIL/uL Hemoglobin 9.1 L 14.0-18.0 g/dL Hematocrit 27.2 L 42-54 % Mean Corpuscular Volume 93.8 79-99 fL Mean Corpuscular Hemoglobin 31.4 27.0-33.0 pg Mean Corpuscular Hemoglobin Concent 33.5 32.0-36.0 g/dL Red Cell Distribution Width 13.3 11.0-15.5 % Platelet Count 306 130-400 K/uL Mean Platelet Volume 9.0 7.5-10.5 fL Immature Granulocyte % (Auto) 0.2 0-1 % Neutrophils (%) (Auto) 67.5 40.0-77.0 % Lymphocytes (%) (Auto) 20.5 L 21.0-51.0 % Monocytes (%) (Auto) 9.3 3.0-13.0 % Eosinophils (%) (Auto) 1.9 0.0-8.0 % Basophils (%) (Auto) 0.6 0.0-5.0 % Neutrophils # (Auto) 6.3 1.8-7.7 K/uL Lymphocytes # (Auto) 1.9 1.0-4.8 K/uL Monocytes # (Auto) 0.9 0.1-1.0 K/uL Eosinophils # (Auto) 0.18 0.00-0.70 K/uL Basophils # (Auto) 0.06 0.00-0.20 K/uL Absolute Immature Granulocyte (auto 0.02 0-1 K/uL Nucleated Red Blood Cells 0.0 0.0-0.19 % Sodium Level 140 136-145 mmol/L Potassium Level 4.2 3.5-5.1 mmol/L Chloride Level 106 101-111 mmol/L Carbon Dioxide Level 27 21-32 mmol/L Blood Urea Nitrogen 8 7-18 mg/dL Creatinine 0.9 0.5-1.3 mg/dL Glomerular Filtration Rate Calc 94 >90 mL/min Random Glucose 91 70-105 mg/dL Total Calcium 8.4 L 8.5-10.1 mg/dL Vancomycin Level Trough 11.8 10.0-20.0 UG/ML Current Medications Medications (Trade) Dose Ordered Sig/Citlaly Route PRN Reason Start Time Stop Time Status Last Admin Dose Admin Acetaminophen (TYLenol 325MG TAB) 650 mg Q6H PRN PO FEVER/MILD PAIN LEVEL 1-3 08/01/24 20:00 08/31/24 19:59 Acetaminophen (TYLenol 650MG SUPPOSITORY) 650 mg Q6H PRN RC FEVER / MILD PAIN 1-3 IF NPO 08/01/24 20:00 08/31/24 19:59 Albumin Human 100 ml @ 0 mls/hr AD IV 08/02/24 02:00 08/03/24 17:32 DC Albuterol (DUOneb) 1 udvial [id number] IH 08/01/24 22:00 08/03/24 10:19 DC 08/02/24 06:37 1 UDVIAL Albuterol (DUOneb) 1 udvial [id number] IH 08/03/24 12:00 08/31/24 21:59 08/05/24 11:51 1 UDVIAL Apixaban (EliquIS) 10 mg BID PO 08/03/24 07:30 08/10/24 07:29 08/05/24 08:57 10 MG Azithromycin 250 ml @ 250 mls/hr Q24H IVPB 08/02/24 14:00 08/03/24 07:18 DC 08/02/24 15:09 250 MLS/HR Budesonide (Pulmicort 0.5 Mg/2ml) 0.5 mg BIDRESP IH 08/01/24 20:10 08/31/24 20:09 08/05/24 07:27 0.5 MG Cefepime HCl (MAXipime 1 GM vial) 1 gm Q12H IVPB 08/02/24 04:00 08/12/24 03:59 08/05/24 03:51 1 GM Dextrose (D50w) 50 ml AD PRN IV HYPOGLYCEMIA PROTOCOL 08/02/24 01:00 09/01/24 00:59 Docusate Sodium (COLace 100MG CAP) 100 mg BID PRN PO CONSTIPATION 08/01/24 20:00 08/31/24 19:59 Glucagon (Glucagon 1mg Kit) 1 mg AD PRN IM HYPOGLYCEMIA PROTOCOL 08/02/24 01:00 09/01/24 00:59 Heparin Sodium (Porcine) (HEParin 5,000 UNIT VIAL) *calculation based on ACTUAL B... AD PRN IV HEPARIN PROTOCOL 08/01/24 23:30 08/03/24 07:29 DC 08/01/24 22:37 5,000 UNIT Heparin Sodium/ Dextrose 250 ml @ 0 mls/hr PROTOCOL IV 08/01/24 22:00 08/03/24 07:21 DC 08/03/24 00:10 9.6 MLS/HR Heparin Sodium/ Dextrose 250 ml @ 0 mls/hr Q6H IV 08/01/24 23:30 08/02/24 13:54 DC 08/01/24 22:54 11 MLS/HR Hydralazine HCl (APRESOLine 20MG INJ) 10 mg Q2H PRN IV SBP GREATER THAN 160 08/01/24 20:00 08/31/24 19:59 Insulin Human Regular (humuLIN R 100 UNIT/ML 3ML) INSULIN SLIDING SCAL... ACHS SQ 08/01/24 21:00 08/03/24 11:13 DC Ipratropium [place] (AtrovENT UD) 0.5 mg [id number] IH 08/01/24 20:10 08/03/24 10:15 DC 08/03/24 06:26 0.5 MG Lactulose (Constulose 20gm/ 30ml Udcup) 20 gm Q6H PRN PO CONSTIPATION 08/01/24 20:00 08/31/24 19:59 Magnesium Sulfate 50 ml @ 0 mls/hr PROTOCOL PRN IV MAGNESIUM PROTOCOL 08/02/24 01:00 09/01/24 00:59 08/03/24 08:10 25 MLS/HR Midodrine (PROAMatine 5 MG TABLET) 10 mg TID PO 08/01/24 21:30 08/03/24 11:13 DC 08/03/24 08:09 10 MG Midodrine (PROAMatine 5 MG TABLET) 15 mg TID PO 08/03/24 14:00 09/02/24 13:59 08/05/24 08:58 15 MG Norepinephrine 250 ml @ 23.813 mls/ hr PROTOCOL IV 08/02/24 01:30 09/01/24 01:29 08/02/24 01:35 23.813 MLS/HR Ondansetron HCl (zoFRAN 4MG INJ) 4 mg Q6H PRN IVP NAUSEA/VOMITING 08/01/24 20:00 08/31/24 19:59 Pantoprazole Sodium (PROTonix 40MG TAB) 40 mg DAILY PO 08/02/24 09:00 09/01/24 08:59 08/05/24 08:58 40 MG Pharmacy Profile Note (Pharmacy Communication) 1 each AD MISC 08/02/24 20:00 08/02/24 19:41 DC Piperacillin Sod/ Tazobactam Sod (Zosyn 3.375gm+NS 50ml) 3.375 gm ONCE STAT IV 08/01/24 19:40 08/01/24 19:43 DC 08/01/24 20:16 3.375 GM Potassium Chloride 100 ml @ 100 mls/hr AD PRN IV POTASSIUM PROTOCOL 08/02/24 01:00 09/01/24 00:59 Potassium Chloride (K-Dur 10meq Sr Tab) 10 meq AD PRN PO POTASSIUM PROTOCOL 08/03/24 18:00 09/01/24 00:59 Potassium Chloride (K-Dur/Klor-Con 20meq) 10 meq AD PRN PO POTASSIUM PROTOCOL 08/02/24 01:00 08/03/24 17:33 DC Potassium Chloride (KCl 10% Elixir 20meq/15ml) 10 meq AD PRN PO POTASSIUM PROTOCOL 08/02/24 01:00 09/01/24 00:59 Sodium Chloride 250 ml @ 250 mls/hr Q1H IV 08/01/24 20:00 08/01/24 23:00 DC 08/01/24 23:50 250 MLS/HR Temazepam (restORIL 15 MG CAP) 15 mg HS PRN PO INSOMNIA/SLEEP 08/01/24 20:00 08/31/24 19:59 Vancomycin HCl 250 ml @ 125 mls/hr Q24H IV 08/02/24 20:00 08/12/24 19:59 08/04/24 20:35 125 MLS/HR Vancomycin HCl (Vancomycin Protocol) 1 each AD IV 08/01/24 20:00 08/15/24 19:59 Vancomycin HCl (Vancomycin 1g/ 250ml Kit) 1 gm ONCE STAT IV 08/01/24 19:40 08/01/24 19:43 DC 08/01/24 21:07 1 GM DIAGNOSTICS / RADIOLOGY: [ ] ASSESSMENT: Sepsis with septic shock, POA, in need of pressors Exacerbation of COPD, POA Right lung reticular nodular infiltrates, per CT on 08/01/2024, POA Right lung pneumonia, POA Interstitial fibrosis, POA Right pleural effusion, small Elevated D-dimer levels POA -Non occlusive DVT in both LE, as per Venous Doppler US on 07/06/24 -Thrombosed right lower lobe pulmonary veins, as per CT chest on 07/06 -Intracardiac thrombosis [left atrium], as per CT chest on 07/06 Acute hypoxemic respiratory failure, POA, 2/2 above Leukocytosis/lactic acidosis Acute dehydration (ketonuria, elevated creatinine) Chronic Systolic heart failure with ejection fraction of 45-50% Acute kidney injury, POA GFR 55 Acute on chronic kidney disease, GFR 66 on 07/19/2024 Electrolyte derangement (hyponatremia, hypochloremia, hypocalcemia) Atrial fibrillation with controlled rate Acute on chronic anemia, POA Hyperglycemia without history of diabetes mellitus Elevated BNP Right-sided hiatal hernia, POA Homelessness, POA Medication noncompliance Chronic Intermittent B/L lower extremity pain, POA PLAN: Continue PCCU Monitor respiratory status closely. Continue oxygen therapy as needed. Titrate oxygen to keep SpO2 equal to greater than 92%. Discontinue heparin, start apixaban 10mg BID for 7 days, deescalate to 5mg BID Continue Atrovent q.6 hours scheduled. Continue Pulmicort nebulizer treatments b.i.d. scheduled. Kayla p.r.n. shortness of breath. RT to provide IS and education on use. Continue Vancomycin IV, cefepime IV, Azithromycin Pulmonology consulted, appreciate recommendations P.r.n. medications for: Pain management, fever, nausea, vomiting, constipation. Disposition: Pending safe placement, pulmonology recommendations NAN MACHADO MD Aug 05, 2024 13:02
[2024-08-06] VITALS (12 sets, daily range): BP systolic 105–125; BP diastolic 57–80; PULSE 66–98; RESP 18–20; TEMP 97.4–98.8; O2SAT 98–99
--- NOTE | 2024-08-06 14:05 | PN ---
[facility] PROGRESS NOTE Date of Service: Aug 06, 2024 Time of Service: 14:04 SUBJECTIVE: 08/02 patient seen at bedside, no acute events overnight. V/Q scan pending, we will follow up. Venous Dopplers positive for thrombus, we will continue heparin drip. WBC improved from 20/5 down to 21, hemoglobin decreased from 11.0 down to 10.[address]. CT of chest showing pulmonary infiltrates on the right side, we will continue with antibiotics. 08/03 patient seen at bedside, no acute events overnight. Patient will be transitioned from heparin to apixaban. Cultures are no growth to date, sputum culture still pending. WBC improved from 12.3 down to 11.5, hemoglobin improved from 8.8 up to 9.0, remainder of his labs are relatively unremarkable. 08/04 Patient seen at bedside, no acute events overnight. His breathing has improved, we will continue with systemic steroids, nebulizers and empiric antibiotics. Sputum culture growing rare gram-positive cocci. Further recommendations per pulmonology. 08/05 Pt seen at bedside, no acute events overnight. PT to evaluate patient. Pt is homeless, given the weather, case management consulted to assist with safe placement. Further recommendations per pulmonology 08/06 patient seen at bedside, no acute events overnight. Case management recom mendations for safe discharge are still pending, we will follow up. Patient vitals and labs are relatively unremarkable. REVIEW OF SYSTEMS 12-point ROS reviewed with patient. All pertinent positives mentioned above. Otherwise negative, non-pertinent, or noncontributory. PHYSICAL EXAM GENERAL APPEARANCE: The patient is awake, alert, and oriented. Ungroomed, his close is dirty, and has body foul odor. NEUROLOGICAL: Cranial nerves II-XII grossly intact. Motor is 5/5 in bilateral upper and lower extremities proximal to distal. No sensory deficits. HEENT: Face is symmetric. Pupils are equal and reactive. Extraocular movements are intact. NECK: Supple. No JVD. No thyromegaly. No submental, submandibular, pre- /postauricular, occipital or supraclavicular lymphadenopathy. CHEST: Normal chest expansion. No Telemetry. LUNGS: Tachypneic, diminished. No rhonchi or wheezing. Has productive thick phlegm. CARDIOVASCULAR: Regular. S1 and S2 normal. No appreciable rubs, murmurs or gallops. ABDOMEN: Soft, nontender, and nondistended. There is no rebound, voluntary guarding, or rigidity. : Deferred. No Avery. EXTREMITIES: Non-edematous and not cyanotic. No clubbing. Good capillary refill. SKIN: No skin breakdown. Vital Signs (last 8hr) Date Time Temp Pulse Resp B/P (MAP) Pulse Ox O2 Delivery O2 Flow Rate FiO2 08/06/24 11:42 97.3 71 18 105/57 98 08/06/24 11:14 78 20 08/06/24 08:00 98 Nasal Cannula* 2 28 08/06/24 07:48 97.7 98 18 118/80 98 08/06/24 06:30 81 20 N/A Room Air 21 08/06/24 06:28 81 20 LABS: Laboratory: Test 08/06/24 11:46 08/05/24 03:36 08/04/24 18:35 Range/Units Whole Blood Glucose 93 70-110 MG/DL White Blood Count 9.3 4.8-10.8 K/uL Red Blood Count 2.90 L 4.50-6.20 MIL/uL Hemoglobin 9.1 L 14.0-18.0 g/dL Hematocrit 27.2 L 42-54 % Mean Corpuscular Volume 93.8 79-99 fL Mean Corpuscular Hemoglobin 31.4 27.0-33.0 pg Mean Corpuscular Hemoglobin Concent 33.5 32.0-36.0 g/dL Red Cell Distribution Width 13.3 11.0-15.5 % Platelet Count 306 130-400 K/uL Mean Platelet Volume 9.0 7.5-10.5 fL Immature Granulocyte % (Auto) 0.2 0-1 % Neutrophils (%) (Auto) 67.5 40.0-77.0 % Lymphocytes (%) (Auto) 20.5 L 21.0-51.0 % Monocytes (%) (Auto) 9.3 3.0-13.0 % Eosinophils (%) (Auto) 1.9 0.0-8.0 % Basophils (%) (Auto) 0.6 0.0-5.0 % Neutrophils # (Auto) 6.3 1.8-7.7 K/uL Lymphocytes # (Auto) 1.9 1.0-4.8 K/uL Monocytes # (Auto) 0.9 0.1-1.0 K/uL Eosinophils # (Auto) 0.18 0.00-0.70 K/uL Basophils # (Auto) 0.06 0.00-0.20 K/uL Absolute Immature Granulocyte (auto 0.02 0-1 K/uL Nucleated Red Blood Cells 0.0 0.0-0.19 % Sodium Level 140 136-145 mmol/L Potassium Level 4.2 3.5-5.1 mmol/L Chloride Level 106 101-111 mmol/L Carbon Dioxide Level 27 21-32 mmol/L Blood Urea Nitrogen 8 7-18 mg/dL Creatinine 0.9 0.5-1.3 mg/dL Glomerular Filtration Rate Calc 94 >90 mL/min Random Glucose 91 70-105 mg/dL Total Calcium 8.4 L 8.5-10.1 mg/dL Vancomycin Level Trough 11.8 10.0-20.0 UG/ML Current Medications Medications (Trade) Dose Ordered Sig/Citlaly Route PRN Reason Start Time Stop Time Status Last Admin Dose Admin Acetaminophen (TYLenol 325MG TAB) 650 mg Q6H PRN PO FEVER/MILD PAIN LEVEL 1-3 08/01/24 20:00 08/31/24 19:59 Acetaminophen (TYLenol 650MG SUPPOSITORY) 650 mg Q6H PRN RC FEVER / MILD PAIN 1-3 IF NPO 08/01/24 20:00 08/31/24 19:59 Albumin Human 100 ml @ 0 mls/hr AD IV 08/02/24 02:00 08/03/24 17:32 DC Albuterol (DUOneb) 1 udvial [id number] IH 08/01/24 22:00 08/03/24 10:19 DC 08/02/24 06:37 1 UDVIAL Albuterol (DUOneb) 1 udvial [id number] IH 08/03/24 12:00 08/31/24 21:59 08/06/24 11:14 1 UDVIAL Apixaban (EliquIS) 10 mg BID PO 08/03/24 07:30 08/10/24 07:29 08/06/24 09:29 10 MG Azithromycin 250 ml @ 250 mls/hr Q24H IVPB 08/02/24 14:00 08/03/24 07:18 DC 08/02/24 15:09 250 MLS/HR Budesonide (Pulmicort 0.5 Mg/2ml) 0.5 mg BIDRESP IH 08/01/24 20:10 08/31/24 20:09 08/06/24 06:27 0.5 MG Cefepime HCl (MAXipime 1 GM vial) 1 gm Q12H IVPB 08/02/24 04:00 08/12/24 03:59 08/06/24 03:49 1 GM Dextrose (D50w) 50 ml AD PRN IV HYPOGLYCEMIA PROTOCOL 08/02/24 01:00 09/01/24 00:59 Docusate Sodium (COLace 100MG CAP) 100 mg BID PRN PO CONSTIPATION 08/01/24 20:00 08/31/24 19:59 Glucagon (Glucagon 1mg Kit) 1 mg AD PRN IM HYPOGLYCEMIA PROTOCOL 08/02/24 01:00 09/01/24 00:59 Heparin Sodium (Porcine) (HEParin 5,000 UNIT VIAL) *calculation based on ACTUAL B... AD PRN IV HEPARIN PROTOCOL 08/01/24 23:30 08/03/24 07:29 DC 08/01/24 22:37 5,000 UNIT Heparin Sodium/ Dextrose 250 ml @ 0 mls/hr PROTOCOL IV 08/01/24 22:00 08/03/24 07:21 DC 08/03/24 00:10 9.6 MLS/HR Heparin Sodium/ Dextrose 250 ml @ 0 mls/hr Q6H IV 08/01/24 23:30 08/02/24 13:54 DC 08/01/24 22:54 11 MLS/HR Hydralazine HCl (APRESOLine 20MG INJ) 10 mg Q2H PRN IV SBP GREATER THAN 160 08/01/24 20:00 08/31/24 19:59 Insulin Human Regular (humuLIN R 100 UNIT/ML 3ML) INSULIN SLIDING SCAL... ACHS SQ 08/01/24 21:00 08/03/24 11:13 DC Ipratropium [place] (AtrovENT UD) 0.5 mg [id number] IH 08/01/24 20:10 08/03/24 10:15 DC 08/03/24 06:26 0.5 MG Lactulose (Constulose 20gm/ 30ml Udcup) 20 gm Q6H PRN PO CONSTIPATION 08/01/24 20:00 08/31/24 19:59 Magnesium Sulfate 50 ml @ 0 mls/hr PROTOCOL PRN IV MAGNESIUM PROTOCOL 08/02/24 01:00 09/01/24 00:59 08/03/24 08:10 25 MLS/HR Midodrine (PROAMatine 5 MG TABLET) 10 mg TID PO 08/01/24 21:30 08/03/24 11:13 DC 08/03/24 08:09 10 MG Midodrine (PROAMatine 5 MG TABLET) 15 mg TID PO 08/03/24 14:00 08/06/24 07:46 DC 08/05/24 14:03 15 MG Norepinephrine 250 ml @ 23.813 mls/ hr PROTOCOL IV 08/02/24 01:30 09/01/24 01:29 08/02/24 01:35 23.813 MLS/HR Ondansetron HCl (zoFRAN 4MG INJ) 4 mg Q6H PRN IVP NAUSEA/VOMITING 08/01/24 20:00 08/31/24 19:59 Pantoprazole Sodium (PROTonix 40MG TAB) 40 mg DAILY PO 08/02/24 09:00 09/01/24 08:59 08/06/24 09:29 40 MG Pharmacy Profile Note (Pharmacy Communication) 1 each AD MISC 08/02/24 20:00 08/02/24 19:41 DC Piperacillin Sod/ Tazobactam Sod (Zosyn 3.375gm+NS 50ml) 3.375 gm ONCE STAT IV 08/01/24 19:40 08/01/24 19:43 DC 08/01/24 20:16 3.375 GM Potassium Chloride 100 ml @ 100 mls/hr AD PRN IV POTASSIUM PROTOCOL 08/02/24 01:00 09/01/24 00:59 Potassium Chloride (K-Dur 10meq Sr Tab) 10 meq AD PRN PO POTASSIUM PROTOCOL 08/03/24 18:00 09/01/24 00:59 Potassium Chloride (K-Dur/Klor-Con 20meq) 10 meq AD PRN PO POTASSIUM PROTOCOL 08/02/24 01:00 08/03/24 17:33 DC Potassium Chloride (KCl 10% Elixir 20meq/15ml) 10 meq AD PRN PO POTASSIUM PROTOCOL 08/02/24 01:00 09/01/24 00:59 Sodium Chloride 250 ml @ 250 mls/hr Q1H IV 08/01/24 20:00 08/01/24 23:00 DC 08/01/24 23:50 250 MLS/HR Temazepam (restORIL 15 MG CAP) 15 mg HS PRN PO INSOMNIA/SLEEP 08/01/24 20:00 08/31/24 19:59 Vancomycin HCl 250 ml @ 125 mls/hr Q24H IV 08/02/24 20:00 08/12/24 19:59 08/05/24 20:05 125 MLS/HR Vancomycin HCl (Vancomycin Protocol) 1 each AD IV 08/01/24 20:00 08/15/24 19:59 Vancomycin HCl (Vancomycin 1g/ 250ml Kit) 1 gm ONCE STAT IV 08/01/24 19:40 08/01/24 19:43 DC 08/01/24 21:07 1 GM DIAGNOSTICS / RADIOLOGY: [ ] ASSESSMENT: Sepsis with septic shock, POA, in need of pressors Exacerbation of COPD, POA Right lung reticular nodular infiltrates, per CT on 08/01/2024, POA Right lung pneumonia, POA Interstitial fibrosis, POA Right pleural effusion, small Elevated D-dimer levels POA -Non occlusive DVT in both LE, as per Venous Doppler US on 07/06/24 -Thrombosed right lower lobe pulmonary veins, as per CT chest on 07/06 -Intracardiac thrombosis [left atrium], as per CT chest on 07/06 Acute hypoxemic respiratory failure, POA, 2/2 above Leukocytosis/lactic acidosis Acute dehydration (ketonuria, elevated creatinine) Chronic Systolic heart failure with ejection fraction of 45-50% Acute kidney injury, POA GFR 55 Acute on chronic kidney disease, GFR 66 on 07/19/2024 Electrolyte derangement (hyponatremia, hypochloremia, hypocalcemia) Atrial fibrillation with controlled rate Acute on chronic anemia, POA Hyperglycemia without history of diabetes mellitus Elevated BNP Right-sided hiatal hernia, POA Homelessness, POA Medication noncompliance Chronic Intermittent B/L lower extremity pain, POA PLAN: Continue PCCU Monitor respiratory status closely. Continue oxygen therapy as needed. Titrate oxygen to keep SpO2 equal to greater than 92%. Discontinue heparin, start apixaban 10mg BID for 7 days, deescalate to 5mg BID Continue Atrovent q.6 hours scheduled. Continue Pulmicort nebulizer treatments b.i.d. scheduled. Kayla p.r.n. shortness of breath. RT to provide IS and education on use. Continue Vancomycin IV, cefepime IV, Azithromycin Pulmonology consulted, appreciate recommendations P.r.n. medications for: Pain management, fever, nausea, vomiting, constipation. Disposition: Pending safe placement, pulmonology recommendations NAN MACHADO MD Aug 06, 2024 14:05
--- NOTE | 2024-08-06 16:35 | NUR ---
PT ARRIVED TO RM 332. PT STABLE VITAL SIGNS. PT DENIES ANY PAIN. LBM 08/05/24. 20G TO LEFT FA PATENT. FLUSHED. SALINE LOCKED. BED POSITION TO LOWEST POSITION CALL LIGHT WITH IN REACH. PT SIGNED BED ALARM REFUSAL.
--- NOTE | 2024-08-06 16:39 | NUR ---
PATIENT TAKEN UP TO 332. LEMUEL WAS GIVEN REPORT. KARDEX PROVIDED. ALL BELONGINGS WERE TAKEN WITH THIS PATIENT.
[2024-08-06] MEDS: VANCOMYCIN 1.5 GM/250 ML BAG 250 ML IV SCH (20:29)
[2024-08-07] VITALS (15 sets, daily range): BP systolic 112–136; BP diastolic 65–84; PULSE 71–84; RESP 16–20; TEMP 97.3–98.1; O2SAT 95–97
--- NOTE | 2024-08-07 14:48 | PN ---
[facility] PROGRESS NOTE Date of Service: Aug 07, 2024 Time of Service: 14:46 SUBJECTIVE: 08/02 patient seen at bedside, no acute events overnight. V/Q scan pending, we will follow up. Venous Dopplers positive for thrombus, we will continue heparin drip. WBC improved from 20/5 down to 21, hemoglobin decreased from 11.0 down to 10.7. CT of chest showing pulmonary infiltrates on the right side, we will continue with antibiotics. 08/03 patient seen at bedside, no acute events overnight. Patient will be transitioned from heparin to apixaban. Cultures are no growth to date, sputum culture still pending. WBC improved from 12.3 down to 11.5, hemoglobin improved from 8.8 up to 9.0, remainder of his labs are relatively unremarkable. 08/04 Patient seen at bedside, no acute events overnight. His breathing has improved, we will continue with systemic steroids, nebulizers and empiric antibiotics. Sputum culture growing rare gram-positive cocci. Further recommendations per pulmonology. 08/05 Pt seen at bedside, no acute events overnight. PT to evaluate patient. Pt is homeless, given the weather, case management consulted to assist with safe placement. Further recommendations per pulmonology 08/06 patient seen at bedside, no acute events overnight. Case management recom mendations for safe discharge are still pending, we will follow up. Patient vitals and labs are relatively unremarkable. 08/07 patient seen at bedside, no acute events overnight. Case management called regarding safe discharge, still working on disposition, will continue to follow up. Patient vitals and labs are relatively unremarkable. REVIEW OF SYSTEMS 12-point ROS reviewed with patient. All pertinent positives mentioned above. Otherwise negative, non-pertinent, or noncontributory. PHYSICAL EXAM GENERAL APPEARANCE: The patient is awake, alert, and oriented. Ungroomed, his close is dirty, and has body foul odor. NEUROLOGICAL: Cranial nerves II-XII grossly intact. Motor is 5/5 in bilateral upper and lower extremities proximal to distal. No sensory deficits. HEENT: Face is symmetric. Pupils are equal and reactive. Extraocular movements are intact. NECK: Supple. No JVD. No thyromegaly. No submental, submandibular, pre-/postauricular, occipital or supraclavicular lymphadenopathy. CHEST: Normal chest expansion. No Telemetry. LUNGS: Tachypneic, diminished. No rhonchi or wheezing. Has productive thick phlegm. CARDIOVASCULAR: Regular. S1 and S2 normal. No appreciable rubs, murmurs or gallops. ABDOMEN: Soft, nontender, and nondistended. There is no rebound, voluntary guarding, or rigidity. : Deferred. No Avery. EXTREMITIES: Non-edematous and not cyanotic. No clubbing. Good capillary refill. SKIN: No skin breakdown. Vital Signs (last 8hr) Date Time Temp Pulse Resp B/P (MAP) Pulse Ox O2 Delivery O2 Flow Rate FiO2 08/07/24 12:00 97.3 80 16 133/79 94 Room Air 21 08/07/24 11:23 84 20 08/07/24 11:22 84 20 N/A Room Air 21 08/07/24 09:21 95 Room Air* 0 21 08/07/24 08:00 97.5 75 16 133/80 94 Room Air 21 08/07/24 07:04 77 20 08/07/24 07:04 77 18 N/A Room Air 21 LABS: Laboratory: Test 08/07/24 10:34 08/06/24 19:35 Range/Units Whole Blood Glucose 96 70-110 MG/DL Vancomycin Level Trough 10.4 10.0-20.0 UG/ML Current Medications Medications (Trade) Dose Ordered Sig/Citlaly Route PRN Reason Start Time Stop Time Status Last Admin Dose Admin Acetaminophen (TYLenol 325MG TAB) 650 mg Q6H PRN PO FEVER/MILD PAIN LEVEL 1-3 08/01/24 20:00 08/31/24 19:59 Acetaminophen (TYLenol 650MG SUPPOSITORY) 650 mg Q6H PRN RC FEVER / MILD PAIN 1-3 IF NPO 08/01/24 20:00 08/31/24 19:59 Albumin Human 100 ml @ 0 mls/hr AD IV 08/02/24 02:00 08/03/24 17:32 DC Albuterol (DUOneb) 1 udvial [id number] IH 08/01/24 22:00 08/03/24 10:19 DC 08/02/24 06:37 1 UDVIAL Albuterol (DUOneb) 1 udvial [id number] IH 08/03/24 12:00 08/31/24 21:59 08/07/24 11:22 1 UDVIAL Apixaban (EliquIS) 10 mg BID PO 08/03/24 07:30 08/10/24 07:29 08/07/24 09:21 10 MG Azithromycin 250 ml @ 250 mls/hr Q24H IVPB 08/02/24 14:00 08/03/24 07:18 DC 08/02/24 15:09 250 MLS/HR Budesonide (Pulmicort 0.5 Mg/2ml) 0.5 mg BIDRESP IH 08/01/24 20:10 08/31/24 20:09 08/07/24 07:02 0.5 MG Cefepime HCl (MAXipime 1 GM vial) 1 gm Q12H IVPB 08/02/24 04:00 08/12/24 03:59 08/07/24 03:05 1 GM Dextrose (D50w) 50 ml AD PRN IV HYPOGLYCEMIA PROTOCOL 08/02/24 01:00 09/01/24 00:59 Docusate Sodium (COLace 100MG CAP) 100 mg BID PRN PO CONSTIPATION 08/01/24 20:00 08/31/24 19:59 Glucagon (Glucagon 1mg Kit) 1 mg AD PRN IM HYPOGLYCEMIA PROTOCOL 08/02/24 01:00 09/01/24 00:59 Heparin Sodium (Porcine) (HEParin 5,000 UNIT VIAL) *calculation based on ACTUAL B... AD PRN IV HEPARIN PROTOCOL 08/01/24 23:30 08/03/24 07:29 DC 08/01/24 22:37 5,000 UNIT Heparin Sodium/ Dextrose 250 ml @ 0 mls/hr PROTOCOL IV 08/01/24 22:00 08/03/24 07:21 DC 08/03/24 00:10 9.6 MLS/HR Heparin Sodium/ Dextrose 250 ml @ 0 mls/hr Q6H IV 08/01/24 23:30 08/02/24 13:54 DC 08/01/24 22:54 11 MLS/HR Hydralazine HCl (APRESOLine 20MG INJ) 10 mg Q2H PRN IV SBP GREATER THAN 160 08/01/24 20:00 08/31/24 19:59 Insulin Human Regular (humuLIN R 100 UNIT/ML 3ML) INSULIN SLIDING SCAL... ACHS SQ 08/01/24 21:00 08/03/24 11:13 DC Ipratropium [place] (AtrovENT UD) 0.5 mg [id number] IH 08/01/24 20:10 08/03/24 10:15 DC 08/03/24 06:26 0.5 MG Lactulose (Constulose 20gm/ 30ml Udcup) 20 gm Q6H PRN PO CONSTIPATION 08/01/24 20:00 08/31/24 19:59 Magnesium Sulfate 50 ml @ 0 mls/hr PROTOCOL PRN IV MAGNESIUM PROTOCOL 08/02/24 01:00 09/01/24 00:59 08/03/24 08:10 25 MLS/HR Midodrine (PROAMatine 5 MG TABLET) 10 mg TID PO 08/01/24 21:30 08/03/24 11:13 DC 08/03/24 08:09 10 MG Midodrine (PROAMatine 5 MG TABLET) 15 mg TID PO 08/03/24 14:00 08/06/24 07:46 DC 08/05/24 14:03 15 MG Norepinephrine 250 ml @ 23.813 mls/ hr PROTOCOL IV 08/02/24 01:30 09/01/24 01:29 08/02/24 01:35 23.813 MLS/HR Ondansetron HCl (zoFRAN 4MG INJ) 4 mg Q6H PRN IVP NAUSEA/VOMITING 08/01/24 20:00 08/31/24 19:59 Pantoprazole Sodium (PROTonix 40MG TAB) 40 mg DAILY PO 08/02/24 09:00 09/01/24 08:59 08/07/24 09:22 40 MG Pharmacy Profile Note (Pharmacy Communication) 1 each AD MISC 08/02/24 20:00 08/02/24 19:41 DC Piperacillin Sod/ Tazobactam Sod (Zosyn 3.375gm+NS 50ml) 3.375 gm ONCE STAT IV 08/01/24 19:40 08/01/24 19:43 DC 08/01/24 20:16 3.375 GM Potassium Chloride 100 ml @ 100 mls/hr AD PRN IV POTASSIUM PROTOCOL 08/02/24 01:00 09/01/24 00:59 Potassium Chloride (K-Dur 10meq Sr Tab) 10 meq AD PRN PO POTASSIUM PROTOCOL 08/03/24 18:00 2/6/25 00:59 Potassium Chloride (K-Dur/Klor-Con 20meq) 10 meq AD PRN PO POTASSIUM PROTOCOL 08/02/24 01:00 08/03/24 17:33 DC Potassium Chloride (KCl 10% Elixir 20meq/15ml) 10 meq AD PRN PO POTASSIUM PROTOCOL 08/02/24 01:00 09/01/24 00:59 Sodium Chloride 250 ml @ 250 mls/hr Q1H IV 08/01/24 20:00 08/01/24 23:00 DC 08/01/24 23:50 250 MLS/HR Temazepam (restORIL 15 MG CAP) 15 mg HS PRN PO INSOMNIA/SLEEP 08/01/24 20:00 08/31/24 19:59 Vancomycin HCl 250 ml @ 125 mls/hr Q24H IV 08/06/24 20:30 08/16/24 20:29 08/06/24 20:29 125 MLS/HR Vancomycin HCl 250 ml @ 125 mls/hr Q24H IV 08/02/24 20:00 08/06/24 20:06 DC 08/05/24 20:05 125 MLS/HR Vancomycin HCl (Vancomycin Protocol) 1 each AD IV 08/01/24 20:00 08/15/24 19:59 Vancomycin HCl (Vancomycin 1g/ 250ml Kit) 1 gm ONCE STAT IV 08/01/24 19:40 08/01/24 19:43 DC 08/01/24 21:07 1 GM DIAGNOSTICS / RADIOLOGY: [ ] ASSESSMENT: Sepsis with septic shock, POA, in need of pressors Exacerbation of COPD, POA Right lung reticular nodular infiltrates, per CT on 08/01/2024, POA Right lung pneumonia, POA Interstitial fibrosis, POA Right pleural effusion, small Elevated D-dimer levels POA -Non occlusive DVT in both LE, as per Venous Doppler US on 07/06/24 -Thrombosed right lower lobe pulmonary veins, as per CT chest on 07/06 -Intracardiac thrombosis [left atrium], as per CT chest on 07/06 Acute hypoxemic respiratory failure, POA, 2/2 above Leukocytosis/lactic acidosis Acute dehydration (ketonuria, elevated creatinine) Chronic Systolic heart failure with ejection fraction of 45-50% Acute kidney injury, POA GFR 55 Acute on chronic kidney disease, GFR 66 on 07/19/2024 Electrolyte derangement (hyponatremia, hypochloremia, hypocalcemia) Atrial fibrillation with controlled rate Acute on chronic anemia, POA Hyperglycemia without history of diabetes mellitus Elevated BNP Right-sided hiatal hernia, POA Homelessness, POA Medication noncompliance Chronic Intermittent B/L lower extremity pain, POA PLAN: Continue PCCU Monitor respiratory status closely. Continue oxygen therapy as needed. Titrate oxygen to keep SpO2 equal to greater than 92%. Discontinue heparin, start apixaban 10mg BID for 7 days, deescalate to 5mg BID Continue Atrovent q.6 hours scheduled. Continue Pulmicort nebulizer treatments b.i.d. scheduled. Kayla p.r.n. shortness of breath. RT to provide IS and education on use. Continue Vancomycin IV, cefepime IV, Azithromycin Pulmonology consulted, appreciate recommendations P.r.n. medications for: Pain management, fever, nausea, vomiting, constipation. Disposition: Pending safe placement, pulmonology recommendations NAN MACHADO MD Aug 07, 2024 14:48
--- NOTE | 2024-08-07 16:46 | NUR ---
cm note met with pt and discussed md orders for followup on dc planning, pt states that he lives" in the streets" and he doesn"t have a physical home. when asked about friends or family in the area.states he doesnt have any friends or family. provided pt with list of community resources including homeless shelters and [facility] locally . states is familiar, informed they do provide food and clothing and group home. and can advise on resources for housing etc. pt states he is aware and will followup but he doesnt really like [facility] feels maybe [facility] group home is better. but he will review list. updated dr Webber on above.
[2024-08-08] VITALS (7 sets, daily range): BP systolic 106–131; BP diastolic 69–74; PULSE 66–87; RESP 18–20; TEMP 97.3–98.5; O2SAT 93–97
--- NOTE | 2024-08-08 09:27 | PN ---
[facility] PROGRESS NOTE Date of Service: Aug 08, 2024 Time of Service: 09:27 SUBJECTIVE: 08/02 patient seen at bedside, no acute events overnight. V/Q scan pending, we will follow up. Venous Dopplers positive for thrombus, we will continue heparin drip. WBC improved from 20/5 down to 21, hemoglobin decreased from 11.0 down to 10.7. CT of chest showing pulmonary infiltrates on the right side, we will continue with antibiotics. 08/03 patient seen at bedside, no acute events overnight. Patient will be transitioned from heparin to apixaban. Cultures are no growth to date, sputum culture still pending. WBC improved from 12.3 down to 11.5, hemoglobin improved from 8.8 up to 9.0, remainder of his labs are relatively unremarkable. 08/04 Patient seen at bedside, no acute events overnight. His breathing has improved, we will continue with systemic steroids, nebulizers and empiric antibiotics. Sputum culture growing rare gram-positive cocci. Further recommendations per pulmonology. 08/05 Pt seen at bedside, no acute events overnight. PT to evaluate patient. Pt is homeless, given the weather, case management consulted to assist with safe placement. Further recommendations per pulmonology 08/06 patient seen at bedside, no acute events overnight. Case management recom mendations for safe discharge are still pending, we will follow up. Patient vitals and labs are relatively unremarkable. 08/07 patient seen at bedside, no acute events overnight. Case management called regarding safe discharge, still working on disposition, will continue to follow up. Patient vitals and labs are relatively unremarkable. 08/08 patient is seen and examined at bedside, no acute events overnight, remains hemodynamically stable, results of sputum culture positive for Pseudomonas aeruginosa. Denied chest pain, shortness shortness for breath, no cough, no nausea, no vomiting. REVIEW OF SYSTEMS 12-point ROS reviewed with patient. All pertinent positives mentioned above. Otherwise negative, non-pertinent, or noncontributory. PHYSICAL EXAM GENERAL APPEARANCE: The patient is awake, alert, and oriented. Ungroomed, his close is dirty, and has body foul odor. NEUROLOGICAL: Cranial nerves II-XII grossly intact. Motor is 5/5 in bilateral upper and lower extremities proximal to distal. No sensory deficits. HEENT: Face is symmetric. Pupils are equal and reactive. Extraocular movements are intact. NECK: Supple. No JVD. No thyromegaly. No submental, submandibular, pre-/postauricular, occipital or supraclavicular lymphadenopathy. CHEST: Normal chest expansion. No Telemetry. LUNGS: Tachypneic, diminished. No rhonchi or wheezing. Has productive thick phlegm. CARDIOVASCULAR: Regular. S1 and S2 normal. No appreciable rubs, murmurs or gallops. ABDOMEN: Soft, nontender, and nondistended. There is no rebound, voluntary guarding, or rigidity. : Deferred. No Avery. EXTREMITIES: Non-edematous and not cyanotic. No clubbing. Good capillary refill. SKIN: No skin breakdown. Vital Signs (last 8hr) Date Time Temp Pulse Resp B/P (MAP) Pulse Ox O2 Delivery O2 Flow Rate FiO2 08/08/24 08:23 98.4 72 18 106/70 97 Room Air 08/08/24 05:09 97.3 66 18 119/74 98 Room Air LABS: Laboratory: Test 08/08/24 05:39 08/06/24 19:35 Range/Units Whole Blood Glucose 96 70-110 MG/DL Vancomycin Level Trough 10.4 10.0-20.0 UG/ML Current Medications Medications (Trade) Dose Ordered Sig/Citlaly Route PRN Reason Start Time Stop Time Status Last Admin Dose Admin Acetaminophen (TYLenol 325MG TAB) 650 mg Q6H PRN PO FEVER/MILD PAIN LEVEL 1-3 08/01/24 20:00 08/31/24 19:59 Acetaminophen (TYLenol 650MG SUPPOSITORY) 650 mg Q6H PRN RC FEVER / MILD PAIN 1-3 IF NPO 08/01/24 20:00 08/31/24 19:59 Albumin Human 100 ml @ 0 mls/hr AD IV 08/02/24 02:00 08/03/24 17:32 DC Albuterol (DUOneb) 1 udvial [id number] IH 08/01/24 22:00 08/03/24 10:19 DC 08/02/24 06:37 1 UDVIAL Albuterol (DUOneb) 1 udvial [id number] IH 08/03/24 12:00 08/31/24 21:59 08/08/24 07:10 1 UDVIAL Apixaban (EliquIS) 10 mg BID PO 08/03/24 07:30 08/10/24 07:29 08/07/24 20:40 10 MG Azithromycin 250 ml @ 250 mls/hr Q24H IVPB 08/02/24 14:00 08/03/24 07:18 DC 08/02/24 15:09 250 MLS/HR Budesonide (Pulmicort 0.5 Mg/2ml) 0.5 mg BIDRESP IH 08/01/24 20:10 08/31/24 20:09 08/08/24 07:10 0.5 MG Cefepime HCl (MAXipime 1 GM vial) 1 gm Q12H IVPB 08/02/24 04:00 08/12/24 03:59 08/08/24 03:10 1 GM Dextrose (D50w) 50 ml AD PRN IV HYPOGLYCEMIA PROTOCOL 08/02/24 01:00 09/01/24 00:59 Docusate Sodium (COLace 100MG CAP) 100 mg BID PRN PO CONSTIPATION 08/01/24 20:00 08/31/24 19:59 Glucagon (Glucagon 1mg Kit) 1 mg AD PRN IM HYPOGLYCEMIA PROTOCOL 08/02/24 01:00 09/01/24 00:59 Heparin Sodium (Porcine) (HEParin 5,000 UNIT VIAL) *calculation based on ACTUAL B... AD PRN IV HEPARIN PROTOCOL 08/01/24 23:30 08/03/24 07:29 DC 08/01/24 22:37 5,000 UNIT Heparin Sodium/ Dextrose 250 ml @ 0 mls/hr PROTOCOL IV 08/01/24 22:00 08/03/24 07:21 DC 08/03/24 00:10 9.6 MLS/HR Heparin Sodium/ Dextrose 250 ml @ 0 mls/hr Q6H IV 08/01/24 23:30 08/02/24 13:54 DC 08/01/24 22:54 11 MLS/HR Hydralazine HCl (APRESOLine 20MG INJ) 10 mg Q2H PRN IV SBP GREATER THAN 160 08/01/24 20:00 08/31/24 19:59 Insulin Human Regular (humuLIN R 100 UNIT/ML 3ML) INSULIN SLIDING SCAL... ACHS SQ 08/01/24 21:00 08/03/24 11:13 DC Ipratropium Mccracken (AtrovENT UD) 0.5 mg [id number] IH 08/01/24 20:10 08/03/24 10:15 DC 08/03/24 06:26 0.5 MG Lactulose (Constulose 20gm/ 30ml Udcup) 20 gm Q6H PRN PO CONSTIPATION 08/01/24 20:00 08/31/24 19:59 Magnesium Sulfate 50 ml @ 0 mls/hr PROTOCOL PRN IV MAGNESIUM PROTOCOL 08/02/24 01:00 09/01/24 00:59 08/03/24 08:10 25 MLS/HR Midodrine (PROAMatine 5 MG TABLET) 10 mg TID PO 08/01/24 21:30 08/03/24 11:13 DC 08/03/24 08:09 10 MG Midodrine (PROAMatine 5 MG TABLET) 15 mg TID PO 08/03/24 14:00 08/06/24 07:46 DC 08/05/24 14:03 15 MG Norepinephrine 250 ml @ 23.813 mls/ hr PROTOCOL IV 08/02/24 01:30 09/01/24 01:29 08/02/24 01:35 23.813 MLS/HR Ondansetron HCl (zoFRAN 4MG INJ) 4 mg Q6H PRN IVP NAUSEA/VOMITING 08/01/24 20:00 08/31/24 19:59 Pantoprazole Sodium (PROTonix 40MG TAB) 40 mg DAILY PO 08/02/24 09:00 09/01/24 08:59 08/07/24 09:22 40 MG Pharmacy Profile Note (Pharmacy Communication) 1 each AD MISC 08/02/24 20:00 08/02/24 19:41 DC Piperacillin Sod/ Tazobactam Sod (Zosyn 3.375gm+NS 50ml) 3.375 gm ONCE STAT IV 08/01/24 19:40 08/01/24 19:43 DC 08/01/24 20:16 3.375 GM Potassium Chloride 100 ml @ 100 mls/hr AD PRN IV POTASSIUM PROTOCOL 08/02/24 01:00 09/01/24 00:59 Potassium Chloride (K-Dur 10meq Sr Tab) 10 meq AD PRN PO POTASSIUM PROTOCOL 08/03/24 18:00 09/01/24 00:59 Potassium Chloride (K-Dur/Klor-Con 20meq) 10 meq AD PRN PO POTASSIUM PROTOCOL 08/02/24 01:00 08/03/24 17:33 DC Potassium Chloride (KCl 10% Elixir 20meq/15ml) 10 meq AD PRN PO POTASSIUM PROTOCOL 08/02/24 01:00 09/01/24 00:59 Sodium Chloride 250 ml @ 250 mls/hr Q1H IV 08/01/24 20:00 08/01/24 23:00 DC 08/01/24 23:50 250 MLS/HR Temazepam (restORIL 15 MG CAP) 15 mg HS PRN PO INSOMNIA/SLEEP 08/01/24 20:00 08/31/24 19:59 Vancomycin HCl 250 ml @ 125 mls/hr Q24H IV 08/06/24 20:30 08/16/24 20:29 08/07/24 20:40 125 MLS/HR Vancomycin HCl 250 ml @ 125 mls/hr Q24H IV 08/02/24 20:00 08/06/24 20:06 DC 08/05/24 20:05 125 MLS/HR Vancomycin HCl (Vancomycin Protocol) 1 each AD IV 08/01/24 20:00 08/15/24 19:59 Vancomycin HCl (Vancomycin 1g/ 250ml Kit) 1 gm ONCE STAT IV 08/01/24 19:40 08/01/24 19:43 DC 08/01/24 21:07 1 GM DIAGNOSTICS / RADIOLOGY: [ ] ASSESSMENT: Sepsis with septic shock, POA, in need of pressors Exacerbation of COPD, POA Right lung reticular nodular infiltrates, per CT on 08/01/2024, POA Right lung pneumonia, POA Interstitial fibrosis, POA Right pleural effusion, small Elevated D-dimer levels POA -Non occlusive DVT in both LE, as per Venous Doppler US on 07/06/24 -Thrombosed right lower lobe pulmonary veins, as per CT chest on 07/06 -Intracardiac thrombosis [left atrium], as per CT chest on 07/06 Acute hypoxemic respiratory failure, POA, 2/2 above Leukocytosis/lactic acidosis Acute dehydration (ketonuria, elevated creatinine) Chronic Systolic heart failure with ejection fraction of 45-50% Acute kidney injury, POA GFR 55 Acute on chronic kidney disease, GFR 66 on 07/19/2024 Electrolyte derangement (hyponatremia, hypochloremia, hypocalcemia) Atrial fibrillation with controlled rate Acute on chronic anemia, POA Hyperglycemia without history of diabetes mellitus Elevated BNP Right-sided hiatal hernia, POA Homelessness, POA Medication noncompliance Chronic Intermittent B/L lower extremity pain, POA PLAN: Continue PCCU Monitor respiratory status closely. Continue oxygen therapy as needed. Titrate oxygen to keep SpO2 equal to greater than 92%. Discontinue heparin, start apixaban 10mg BID for 7 days, deescalate to 5mg BID Continue Atrovent q.6 hours scheduled. Continue Pulmicort nebulizer treatments b.i.d. scheduled. Kayla p.r.n. shortness of breath. RT to provide IS and education on use. Continue Vancomycin IV, cefepime IV, Azithromycin Pulmonology consulted, appreciate recommendations P.r.n. medications for: Pain management, fever, nausea, vomiting, constipation. Disposition: Patient to be discharged home today. MILLER GARCIA MD Aug 08, 2024 09:27
[2024-08-08] MEDS ORDERED: LEVO750T40 PO (12:26)
--- NOTE | 2024-08-08 12:30 | DS ---
Discharge Summary Hospital Course Summary: The patient initially admitted to hospital 08/01/2024 with the following history of the present illness: Mr. Gaines is a 69-year-old male who presented to [facility] ED via EMS for evaluation post mechanical fall onset [employer]. EMS was called by bystanders after patient tripped outside [facility]. Patient reported he was able to catch himself by holding onto the wall. Patient is homeless and on arrival the patient denied denies any pain. The patient was negative for influenza and COVID[place] [id number], anemia, thrombocythemia on arrival. Chemistry shows hyponatremia, elevated creatinine 1.4, GFR 55. GFR 66 on . UA shows no evidence of UTI. Chest x-ray shows pulmonary infiltrates in the right upper lobe. Patient was seen here multiple times last month. In ED the patient received Zosyn IV and vancomycin IV. ED provider requested for the patient to be admitted with the diagnosis of Hospital-acquired pneumonia. 08/02 patient seen at bedside, no acute events overnight. V/Q scan pending, we will follow up. Venous Dopplers positive for thrombus, we will continue heparin drip. WBC improved from 20/5 down to 21, hemoglobin decreased from 11.0 down to 10.[address]. CT of chest showing pulmonary infiltrates on the right side, we will continue with antibiotics. 08/03 patient seen at bedside, no acute events overnight. Patient will be transitioned from heparin to apixaban. Cultures are no growth to date, sputum culture still pending. WBC improved from 12.3 down to 11.5, hemoglobin improved from 8.8 up to 9.0, remainder of his labs are relatively unremarkable. 08/04 Patient seen at bedside, no acute events overnight. His breathing has improved, we will continue with systemic steroids, nebulizers and empiric antibiotics. Sputum culture growing rare gram-positive cocci. Further recomm endations per pulmonology. 08/05 Pt seen at bedside, no acute events overnight. PT to evaluate patient. Pt is homeless, given the weather, case management consulted to assist with safe placement. Further recommendations per pulmonology 08/06 patient seen at bedside, no acute events overnight. Case management recommendations for safe discharge are still pending, we will follow up. Patient vitals and labs are relatively unremarkable. 08/07 patient seen at bedside, no acute events overnight. Case management called regarding safe discharge, still working on disposition, will continue to follow up. Patient vitals and labs are relatively unremarkable. 08/08 patient hemodynamically stable, alert oriented x3, results of sputum culture positive for Pseudomonas aeruginosa sensitive to multiple antibiotics. Patient denies dizziness, no headache, no blurry vision, no chest pain, no shortness a breath, no nausea, no vomiting, no abdominal discomfort, no diarrhea, no constipation, no melena, no hematochezia, no hematemesis, no hematuria, no dysuria. Plan is for the patient to be discharged from the hospital today. Water Supervisor(s): Pulmonary. Assessment/Plan: Final diagnosis Sepsis with septic shock, POA, in need of pressors Exacerbation of COPD, POA Right lung reticular nodular infiltrates, per CT on 08/01/2024, POA Right lung pneumonia, POA Interstitial fibrosis, POA Right pleural effusion, small Elevated D-dimer levels POA -Non occlusive DVT in both LE, as per Venous Doppler US on 07/06/24 -Thrombosed right lower lobe pulmonary veins, as per CT chest on 07/06 -Intracardiac thrombosis [left atrium], as per CT chest on 07/06 Acute hypoxemic respiratory failure, POA, 2/2 above Leukocytosis/lactic acidosis Acute dehydration (ketonuria, elevated creatinine) Chronic Systolic heart failure with ejection fraction of 45-50% Acute kidney injury, POA GFR 55 Acute on chronic kidney disease, GFR 66 on 07/19/2024 Electrolyte derangement (hyponatremia, hypochloremia, hypocalcemia) Atrial fibrillation with controlled rate Acute on chronic anemia, POA Hyperglycemia without history of diabetes mellitus Elevated BNP Right-sided hiatal hernia, POA Homelessness, POA Medication noncompliance Chronic Intermittent B/L lower extremity pain, POA Discharge Instructions: Patient to follow up with primary care physician as an outpatient and to return to the hospital if his condition changes. Patient agreed with plan and understood the information provided. Home Medications: Active Scripts Apixaban (Eliquis) 5 Mg Tablet, 1 TAB PO BID for 30 Days, #60 TAB 0 Refills Prov:CHICA DAVILA MD 07/19/24 Thiamine HCl (B-1) 100 Mg Tablet, 100 MG PO DAILY for 30 Days, #30 TAB 1 Refill Prov:MILLER GARCIA MD 8/30/24 Folic Acid (Folic Acid) 0.4 Mg Tablet, 0.4 MG PO DAILY for 30 Days, #30 TAB 1 Refill Prov:MILLER GARCIA MD 03/25/24 Pantoprazole Sodium (Protonix) 40 Mg Ectab, 40 MG PO DAILY for 30 Days, #30 TAB.EC 1 Refill Prov:MILLER GARCIA MD 03/25/24 Time spent arranging discharge: 31-60 minutes MILLER GARCIA MD Aug 08, 2024 12:30
== END 2024-08-08 16:40 | disposition home or self-care (01) | DRG 871 ==
LOC: EDH 14:04 → EDHIP 14:05 → 2CH 08-02 02:42 → 2DH 08-03 16:14 → 3AH 08-06 16:53
PROVIDERS: ADMIT Internal Medicine; ATTEND Internal Medicine
DX: A41.9 Sepsis, unspecified organism (principal); J18.9 Pneumonia, unspecified organism; R65.21 Severe sepsis with septic shock; J96.01 Acute respiratory failure with hypoxia; J44.0 Chronic obstructive pulmonary disease with (acute) lower respiratory infection; I82.403 Acute embolism and thrombosis of unspecified deep veins of lower extremity, bilateral; E87.4 Mixed disorder of acid-base balance; N17.9 Acute kidney failure, unspecified; E87.1 Hypo-osmolality and hyponatremia; I50.22 Chronic systolic (congestive) heart failure; Z59.00 Homelessness unspecified; Z20.822 Contact with and (suspected) exposure to COVID-19; J84.10 Pulmonary fibrosis, unspecified; D64.9 Anemia, unspecified; D69.6 Thrombocytopenia, unspecified; L98.9 Disorder of the skin and subcutaneous tissue, unspecified; N18.9 Chronic kidney disease, unspecified; R82.4 Acetonuria; R73.9 Hyperglycemia, unspecified; E83.51 Hypocalcemia; E86.0 Dehydration; E87.8 Other disorders of electrolyte and fluid balance, not elsewhere classified; F17.210 Nicotine dependence, cigarettes, uncomplicated; I48.91 Unspecified atrial fibrillation; F10.20 Alcohol dependence, uncomplicated; K44.9 Diaphragmatic hernia without obstruction or gangrene; K59.00 Constipation, unspecified; Y95 Nosocomial condition; Z91.199 Patient's noncompliance with other medical treatment and regimen due to unspecified reason; Z86.718 Personal history of other venous thrombosis and embolism; Z91.148 Patient's other noncompliance with medication regimen for other reason
CPT/HCPCS: 36415; 36600; 71045; 71250; 78582; 80048; 80202; 80305; 81001; 82435; 82803; 82947; 82948; 83605; 83690; 83735; 83880; 84100; 84132; 84295; 84443; 85018; 85025; 85027; 85378; 85730; 87040; 87071; 87086; 87186; 87205; 87635; 87804; 92610; 93005; 93970; 94640; 94664; 99285; A9540; A9558; G0378; J0456; J0612; J0692; J1644; J2543; J3370; J3475; J3490; J7050; P9046; 3370

== ENCOUNTER 2024-08-19 18:30 | Inpatient (IN) | payer SELFPAY ==
[~2024-08-19] VITALS: Ht 175.3 cm; Wt 68.1 kg
[2024-08-19] MEDS: 0.9%NACL 1000ML 2,040 ML IV ONE (19:01)
[2024-08-19 19:02] LABS: BASOPHILS # (AUTO) 0.12 K/uL (0.00-0.20); BASOPHILS % (AUTO) 0.7 % (0.0-5.0); EOSINOPHILS # (AUTO) 0.27 K/uL (0.00-0.70); EOSINOPHILS % (AUTO) 1.6 % (0.0-8.0); HEMATOCRIT 32.9 % (42-54); IMMATURE GRANULOCYTE ABSOLUTE 0.09 K/uL (0-1); LYMPHOCYTES # (AUTO) 2.1 K/uL (1.0-4.8); LYMPHOCYTES % (AUTO) 12.7 % (21.0-51.0); MEAN CORPUSCULAR HEMOGLOBIN 30.3 pg (27.0-33.0); MEAN CORPUSCULAR HGB CONC 31.9 g/dL (32.0-36.0); MEAN CORPUSCULAR VOLUME 95.1 fL (79-99); MONOCYTES # (AUTO) 0.7 K/uL (0.1-1.0); MONOCYTES % (AUTO) 4.4 % (3.0-13.0); NEUTROPHILS # (AUTO) 13.3 K/uL (1.8-7.7); NEUTROPHILS % (AUTO) 80.1 % (40.0-77.0); PLATELET COUNT (AUTO) 382 K/uL (130-400); RED BLOOD CELL COUNT(AUTO) 3.46 MIL/uL (4.50-6.20); RED CELL DISTRIBUTION WIDTH 13.9 % (11.0-15.5); WHITE BLOOD COUNT (AUTO) 16.6 K/uL (4.8-10.8)
--- NOTE | 2024-08-19 19:11 | NUR ---
Rhys espino in ED - 08/19/24 at 1916 by [id number] SUPINE:BP 153/80, HR 55 SITTING:BP 160/80, HR 58 STANDING:BP 156/68, HR 59
[2024-08-19 19:14] LABS: CREATININE 1.3 mg/dL (0.5-1.3)
[2024-08-19 19:17] LABS: SARS-CoV-2, RNA, NAAT NEGATIVE SARS CoV-2 (NEGATIVE)
[2024-08-19 19:22] LABS: INFLUENZA TYPE A Negative For Type A (NEGATIVE); INFLUENZA TYPE B Negative For Type B (NEGATIVE)
[2024-08-19] MEDS: IpraTROPium/alBUTERol SULFATE 3 ML SOLUTION IH ONE (19:28)
[2024-08-19] MEDS: ZOSYN 3.375GM +NS 50ML IVPB ONE (19:29)
[2024-08-19] MEDS ORDERED: VANCOMYCIN PROTOCOL PER PHARMACY IV SCH (19:30)
[2024-08-19 19:31] VITALS: PULSE 98; RESP 18
--- NOTE | 2024-08-19 19:33 | ERN ---
General Chief Complaint: Shortness of Breath Stated Complaint: SOB Time Seen by MD: 18:45 Time Seen by Midlevel: 18:45 Source: patient, EMS History of Present Illness Initial Comments PATIENT IS A 69-YEAR-OLD MALE BEING BROUGHT IN BY EMS FOR EVALUATION OF GENERALIZED BODY WEAKNESS WITH ASSOCIATED SHORTNESS OF BREATH AND COUGH. THE PATIENT WAS RECENTLY DISCHARGED FROM OUR HOSPITAL AFTER HE WAS HERE FOR SEVERAL DAYS WITH PNEUMONIA. O2 SATURATION UPON EMS ARRIVAL WAS 88% ON ROOM AIR. PATIENTS SPECIFICALLY DENIES ANY CHEST PAIN, NAUSEA, VOMITING, DIARRHEA, OR ANY OTHER SYMPTOMS AT THIS TIME. Allergies: Coded Allergies: No Known Drug Allergies (Unverified Allergy, Unknown, 03/22/24) Home Meds Active Scripts Apixaban (Eliquis) 5 Mg Tablet, 1 TAB PO BID for 30 Days, #60 TAB 0 Refills Prov:CHICA DAVILA MD 07/19/24 Thiamine HCl (B-1) 100 Mg Tablet, 100 MG PO DAILY for 30 Days, #30 TAB 1 Refill Prov:MILLER GARCIA MD 03/25/24 Folic Acid (Folic Acid) 0.4 Mg Tablet, 0.4 MG PO DAILY for 30 Days, #30 TAB 1 Refill Prov:MILLER GARCIA MD 03/25/24 Pantoprazole Sodium (Protonix) 40 Mg Ectab, 40 MG PO DAILY for 30 Days, #30 TAB.EC 1 Refill Prov:MILLER GARCIA MD 03/25/24 Discontinued Scripts Levofloxacin (Levofloxacin) 750 Mg Tablet, 1 TAB PO DAILY for 10 Days, #7 TAB 0 Refills Prov:MILLER GARCIA MD 08/08/24 Past Medical History Past Medical History: A-Fib, Anemia, Diabetes-Type II, DVT, Renal Disese, Renal Failure, Other Medical History Other: HOSPITAL ACQUIRED PNEUMONIA Past Surgical History: Unknown Social History Social History: ETOH ROS Dictation CONSTITUTIONAL: Negative except for HPI HEAD/FACE: Negative except for HPI EENT: Negative except for HPI RESPIRATORY: Negative except for HPI GASTROINTESTINAL/ABDOMINAL: Negative except for HPI GENITOURINARY: Negative except for HPI MUSCULOSKELETAL: Negative except for HPI INTEGUMENTARY: Negative except for HPI NEUROLOGICAL/PSYCH: Negative except for HPI HEMATOLOGIC/LYMPHATIC: Negative except for HPI All Systems Negative, Except as noted above. 13 point review of systems assessed and all negative except for above. Physical Exam Physical Exam Dictation Vital Signs reviewed General Appearance: Alert, oriented x 3, frail, ill-appearing Head and Face: non-traumatic. Eyes: PERRL, pink conjunctivas, eyelid no trauma, anterior chamber with arcus senilis. Ears: Pinnas intact and no signs of trauma or erythema ear canals clear and no discharge TM no erythema Nose: No discharge, no bleeding. Oropharynx: Mouth normal, tongue pink, pharynx clear,no erythema, tonsils no exudates, no abscesses noted, mucous memb rossi moist Neck: Supple, non-tender, no thyromegaly, no masses, no JVD, no bruits Breast:Deferred Chest:No tenderness, no crepitus, no paradoxical movement, no retractions Lungs: Symmetric, rhonchi to bilateral lung garrett Heart: Regular rate, regular rhythm, no murmur, no gallops Vascular: no peripheral edema, Abdomen: Soft, positive bowel sounds, nondistended, no guarding, nontender, no rebound, no masses no hepatomegaly, no splenomegaly, no Mirza's sign, no hernias. Rectal: Deferred Genital: Deferred Neurological: Normal speech, motor function intact, sensory function intact Musculoskeletal: Neck nontender, full range of motion, back nontender, full range of motion, Extremities: nontender, full range of motion Skin: Color pink, dry, no turgor, no rash, no lacerations, no abrasions, no contusions. Lymphatic: Deferred Results Laboratory and Microbiology Lab and Micro Result Laboratory Tests Test 08/19/24 18:50 08/19/24 18:52 Influenza Type A Antigen Negative For Type A Influenza Type B Antigen Negative For Type B SARS-CoV-2, RNA, NAAT NEGATIVE SARS CoV-2 White Blood Count 16.6 K/uL (4.8-10.8) H Red Blood Count 3.46 MIL/uL (4.50-6.20) L Hemoglobin 10.5 g/dL (14.0-18.0) L Hematocrit 32.9 % (42-54) L Mean Corpuscular Volume 95.1 fL (79-99) Mean Corpuscular Hemoglobin 30.3 pg (27.0-33.0) Mean Corpuscular Hemoglobin Concent 31.9 g/dL (32.0-36.0) L Red Cell Distribution Width 13.9 % (11.0-15.5) Platelet Count 382 K/uL (130-400) Mean Platelet Volume 9.3 fL (7.5-10.5) Immature Granulocyte % (Auto) 0.5 % (0-1) Neutrophils (%) (Auto) 80.1 % (40.0-77.0) H Lymphocytes (%) (Auto) 12.7 % (21.0-51.0) L Monocytes (%) (Auto) 4.4 % (3.0-13.0) Eosinophils (%) (Auto) 1.6 % (0.0-8.0) Basophils (%) (Auto) 0.7 % (0.0-5.0) Neutrophils # (Auto) 13.3 K/uL (1.8-7.7) H Lymphocytes # (Auto) 2.1 K/uL (1.0-4.8) Monocytes # (Auto) 0.7 K/uL (0.1-1.0) Eosinophils # (Auto) 0.27 K/uL (0.00-0.70) Basophils # (Auto) 0.12 K/uL (0.00-0.20) Absolute Immature Granulocyte (auto 0.09 K/uL (0-1) Nucleated Red Blood Cells 0.0 % (0.0-0.19) Sodium Level 136 mmol/L (136-145) Potassium Level 4.0 mmol/L (3.5-5.1) Chloride Level 99 mmol/L (101-111) L Carbon Dioxide Level 22 mmol/L (21-32) Blood Urea Nitrogen 15 mg/dL (7-18) Creatinine 1.3 mg/dL (0.5-1.3) Glomerular Filtration Rate Calc 60 mL/min (>90) Random Glucose 65 mg/dL (70-105) L Lactic Acid Level 5.8 mmol/L (0.8-2.5) H Total Calcium 9.8 mg/dL (8.5-10.1) Total Creatine Kinase 94 U/L (21-232) Troponin I High Sensitivity 7 ng/L (4-75) B-Type Natriuretic Peptide 317 pg/mL (0-100) H Procalcitonin < 0.05 ng/mL (0.05-0.5) L Labs Reviewed?: Yes MDM MDM: Differential diagnosis: Pneumonia, pulmonary edema, pneumonitis, pleural effusion, viral illness, sepsis Rationale: Tests considered and ordered secondary to shared decision making include: Previous outside records reviewed: Old ER visits. Risk of complication and/or morbidity or mortality of patient management: None Medications-Per medication reconciliation Need for hospitalization: Patient does meet criteria for hospitalization. Need for emergency major/minor surgery: No There are no social concerns with this patient. Prescription drug management Prescriptions will include symptomatic care Patient's prior external medical records from other ER visits were reviewed by me as indicated. Prior testing and results from previous visits were reviewed. Prior tests were taken into account with medical decision making and resource utilization, independent historian/historians were used to obtain complete medical history. I independently interpreted the test that were performed, results were reviewed by me and considered findings on radiology if ordered. Medical management and examination interpretation discussions were had by me with other qualified healthcare professionals as indicated for the patient's care. ED Course Orders Procedure Category Date Status Time Cbc With Differential LAB 08/19/24 Complete 18:34 Blood Cult ONDINA 08/19/24 In Process 18:34 Urinalysis Profile LAB 08/19/24 Logged 18:34 Culture Urine ONDINA 08/19/24 Logged 18:34 0.9%Nacl 1000ml (Ns PHA 08/19/24 In Process 1000ml) 19:00 Creatine Kinase, Total LAB 08/19/24 Complete 18:34 Troponin I High LAB 08/19/24 Complete Sensitivity 18:34 Lactic Acid LAB 08/19/24 Complete 18:34 Basic Metabolic Panel LAB 08/19/24 Complete 18:34 12 Lead Ekg Tracing- EKG 08/19/24 Complete Technical 18:45 Procalcitonin LAB 08/19/24 Complete 18:45 Chest 1vw RAD 08/19/24 Resulted 18:45 B-Type Natriuretic LAB 08/19/24 Complete Peptide 18:45 Influenza Type A & B, LAB 08/19/24 Complete Rapid 18:45 Covid Rna Naat LAB 08/19/24 Complete 18:45 Ipratropium/Albuterol PHA 08/19/24 Complete Neb (Duoneb) 19:30 Vancomycin Protocol PHA 08/19/24 In Process (Vancomycin Protocol 19:30 Zosyn 3.375gm+Ns 50ml PHA 08/19/24 Complete (Zosyn 3.375gm+Ns 19:30 Vancomycin 1.75 PHA 08/19/24 Complete Gm/250 Ml Bag 19:30 Vancomycin 750mg PHA 08/20/24 In Process (Vancomycin 750mg) 08:00 Vancomycin Trough LAB 08/21/24 Verified 07:00 Current Medications Medications (Trade) Dose Ordered Sig/Citlaly Route PRN Reason Start Time Stop Time Status Last Admin Dose Admin Albuterol (DUOneb) 1 UDVIAL ONCE ONCE IH 08/19/24 19:30 08/19/24 19:31 DC 08/19/24 19:28 Piperacillin Sod/ Tazobactam Sod (Zosyn 3.375gm+NS 50ml) 3.375 gm ONCE ONCE IVPB 08/19/24 19:30 08/19/24 19:31 DC 08/19/24 19:29 Sodium Chloride 2,040 ml @ 680 mls/hr ONCE ONCE IV 08/19/24 19:00 08/19/24 21:59 08/19/24 19:01 Vancomycin HCl 250 ml @ 125 mls/hr ONCE ONCE IV 08/19/24 19:30 08/19/24 21:29 DC 08/19/24 20:08 Vancomycin HCl (Vancomycin 750mg) 750 mg Q12H IVPB 08/20/24 08:00 08/30/24 07:59 Vancomycin HCl (Vancomycin Protocol) 1 each AD IV 08/19/24 19:30 09/02/24 19:29 Vital Signs Date Time Temp Pulse Resp B/P (MAP) Pulse Ox O2 Delivery O2 Flow Rate FiO2 08/19/24 21:17 85 20 117/67 95 Room Air* 0 21 08/19/24 20:25 88 18 115/66 96 Room Air* 0 21 08/19/24 18:54 98.8 93 20 123/72 97 Room Air* 0 21 08/19/24 18:30 104 20 80/48 88 Room Air 0 [place] [id number] [address] IMAGING REPORT Signed PATIENT: TEN CAR MR#: [id number] : 1955 SEX: M AGE: 69 LOCATION: ED ORDER [id number] STATUS: REG ER REPORT#: [id number] SERVICE [id number] REASON: sob,cough ORDERING PHYSICIAN: KIMBERLY ERNANDEZ PROCEDURE: CXR1VW - CHEST 1VW CHEST 1VW HISTORY: Shortness of breath COMPARISON: 08/09/2024 FINDINGS: A frontal projection of the chest was obtained. Mild bilateral pulmonary infiltrates are seen may be related to mild pulmonary vascular congestion with possible superimposed pneumonitis. The heart is borderline enlarged. Degenerative changes are seen. No evidence of aortic calcification is seen. IMPRESSION: 1. Mild bilateral pulmonary infiltrates are seen may be related to mild pulmonary vascular congestion with possible superimposed pneumonitis. DICTATED BY: ROMERO VALDERRAMA MD DATE: 08/19/241940 ELECTRONICALLY SIGNED BY: ROMERO VALDERRAMA MD DATE: 08/19/241946 DX & DISP Disposition: Inpatient Decision to Admit Date: Aug 19, 2024 Departure Impression: Primary Impression: Sepsis Additional Impressions: Hospital-acquired pneumonia, Leukocytosis, Lactic acid acidosis Condition: Stable Referrals: SELF,REFERRAL (PCP) I have reviewed the case, and I agree with, Diagnosis and Plan I performed the substantive portion of the visit. I have reviewed and personally made and approve the management plan that is documented in the note by myself or the BARBARA. I acknowledge for responsibility for the patient's management plan. KIMBERLY ERNANDEZ Aug 19, 2024 19:33
--- NOTE | 2024-08-19 19:47 | HMCIMG ---
CHEST 1VW HISTORY: Shortness of breath COMPARISON: 08/09/2024 FINDINGS: A frontal projection of the chest was obtained. Mild bilateral pulmonary infiltrates are seen may be related to mild pulmonary vascular congestion with possible superimposed pneumonitis. The heart is borderline enlarged. Degenerative changes are seen. No evidence of aortic calcification is seen. IMPRESSION: 1. Mild bilateral pulmonary infiltrates are seen may be related to mild pulmonary vascular congestion with possible superimposed pneumonitis.
[2024-08-19] MEDS: VANCOMYCIN 1.75 GM/250 ML BAG 250 ML IV ONE (20:08)
--- NOTE | 2024-08-19 20:34 | EKG ---
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
[2024-08-19] MEDS ORDERED: hydrALAZine 20MG/ML VIAL IV PRN (22:30)
[2024-08-19] MEDS ORDERED: acetaMINOPHEN 325 MG TAB PO PRN (22:30)
[2024-08-19] MEDS ORDERED: morPHINE 2 MG SYG IVP PRN (22:30)
[2024-08-19] MEDS ORDERED: guaiFENesin SUGAR-FREE 100 MG/5 ML UDCUP PO PRN (22:30)
[2024-08-19] MEDS: NICOTINE 21 MG/ 24 HR PATCH TD ONE (22:54)
--- NOTE | 2024-08-19 23:11 | NUR ---
PATIENT DENIES TAKING MEDICATIONS. NO MEDICATIONS TO RECONCILE PER PATIENT.
[2024-08-19] MEDS: SODIUM CHLORIDE 3% FOR INHALATION 4 ML/AMP VIAL.NEB IH ONE (23:35)
[2024-08-19] MEDS: IpraTROPium/alBUTERol SULFATE 3 ML SOLUTION IH SCH (23:35)
[2024-08-19 23:43] VITALS: PULSE 107; RESP 18
[2024-08-20] MEDS: ondanSETRON 4MG INJ IV PRN (01:44)
--- NOTE | 2024-08-20 02:16 | NUR ---
ASSUMED PT CARE AT THIS TIME
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
--- NOTE | 2024-08-20 02:32 | NUR ---
REPORT GIVEN TO HEVER GOMEZ.
[2024-08-20] MEDS: ZOSYN 3.375GM +NS 50ML IV SCH ×2 (04:39→22:07)
[2024-08-20 06:01] LABS: APPEARANCE,URINE CLEAR (CLEAR); BILIRUBIN,URINE NEGATIVE (NEGATIVE); COLOR,URINE COLORLESS (YELLOW); GLUCOSE, URINE (UA) NEGATIVE (NEGATIVE); KETONES,URINE 5 mg/dL (NEGATIVE); LEUKOCYTE ESTERASE ,URINE NEGATIVE Leu/uL (NEGATIVE); NITRATE,URINE NEGATIVE (NEGATIVE); OCCULT BLOOD,URINE NEGATIVE (NEGATIVE); PH,URINE 5.5 (5.0-8.0); PROTEIN,URINE NEGATIVE (NEGATIVE); UROBILINOGEN,URINE 0.2 mg/dL (0.2-1.0)
[2024-08-20 06:06] LABS: ADD UA MICROSCOPIC YES
[2024-08-20 06:07] LABS: BACTERIA,URINE None Seen /HPF (None Seen); RBC,URINE None Seen /HPF (0-1); SQUAMOUS EPITHELIAL CELL,UR Rare /HPF (0-2); WBC,URINE None Seen /HPF (0-1)
[2024-08-20 07:29] VITALS: PULSE 98; RESP 16; RESP 18; O2SAT 96
[2024-08-20 08:04] LABS: BASOPHILS # (AUTO) 0.09 K/uL (0.00-0.20); BASOPHILS % (AUTO) 0.8 % (0.0-5.0); EOSINOPHILS # (AUTO) 0.22 K/uL (0.00-0.70); EOSINOPHILS % (AUTO) 1.9 % (0.0-8.0); HEMATOCRIT 24.4 % (42-54); IMMATURE GRANULOCYTE ABSOLUTE 0.05 K/uL (0-1); LYMPHOCYTES # (AUTO) 1.5 K/uL (1.0-4.8); LYMPHOCYTES % (AUTO) 13.2 % (21.0-51.0); MEAN CORPUSCULAR HEMOGLOBIN 29.5 pg (27.0-33.0); MEAN CORPUSCULAR VOLUME 92.4 fL (79-99); MONOCYTES # (AUTO) 0.8 K/uL (0.1-1.0); NEUTROPHILS # (AUTO) 8.9 K/uL (1.8-7.7); NEUTROPHILS % (AUTO) 76.7 % (40.0-77.0); PLATELET COUNT (AUTO) 326 K/uL (130-400); RED BLOOD CELL COUNT(AUTO) 2.64 MIL/uL (4.50-6.20); RED CELL DISTRIBUTION WIDTH 13.9 % (11.0-15.5); WHITE BLOOD COUNT (AUTO) 11.6 K/uL (4.8-10.8)
[2024-08-20 08:32] LABS: CREATININE 0.8 mg/dL (0.5-1.3); MAGNESIUM 1.4 mg/dL (1.80-2.40); PHOSPHORUS 3.4 mg/dL (2.5-4.9); POTASSIUM 3.8 mmol/L (3.5-5.1)
[2024-08-20] MEDS: FAMOTIDINE 20MG TAB PO SCH (08:37)
[2024-08-20] MEDS: metoPROLOL tartRATE 25 MG TAB PO SCH (08:38)
[2024-08-20] MEDS: ENOXAPARIN SODIUM 40 MG/0.4 ML SYRINGE SQ SCH (08:38)
[2024-08-20] MEDS: NICOTINE 21 MG/ 24 HR PATCH TD SCH (08:38)
[2024-08-20] MEDS: VANCOMYCIN 750MG VIAL IVPB SCH (08:45)
[2024-08-20 12:15] VITALS: PULSE 90; RESP 18
[2024-08-20] MEDS ORDERED: PHARMACY COMMUNICATION 1 EACH EACH MISC SCH (15:30)
[2024-08-20 18:35] VITALS: PULSE 95; RESP 18
[2024-08-20 18:39] VITALS: PULSE 85; RESP 16; O2SAT 98
[2024-08-20 23:16] VITALS: PULSE 82; RESP 18
[2024-08-21] VITALS (8 sets, daily range): BP systolic 125–128; BP diastolic 72–77; PULSE 78–88; RESP 16–20; TEMP 98.9–99.5; O2SAT 98–99
--- NOTE | 2024-08-21 14:16 | NUR ---
DCP PT IS WELL KNOWN TO CM, FREQUENT READMISSIONS. PT REFUSED SERVICES OFFERED, BEEN GIVEN COMMUNITY RESOURCES AND LOW COST MED PLAN AT [facility] RX EVERY ADMISSION. PT IS INDEPENDENT, [place] [address] BY CHOICE. PLAN TO DC BACK TO THE STREET WHEN STABLE. CM TO CONTINUE TO FOLLOW UP. Addendum: 08/21/24 at 1418 by ABIMBOLA MIRANDA LVN Amended: Links added.
[2024-08-21] MEDS: BUDESONIDE 0.5 MG/2 ML INH IH ONE (18:30)
--- NOTE | 2024-08-21 20:17 | PN ---
[facility] PROGRESS NOTE Date of Service: Aug 21, 2024 Time of Service: 19:36 SUBJECTIVE: [ pt is doing well and states shortness of breath is improved. minimal cough ] REVIEW OF SYSTEMS CONSTITUTIONAL: Denies fevers, chills, or night sweats. No unintentional weight loss reported. NEUROLOGICAL: Denies headache, amaurosis fugax, motor weakness, sensory deficit, vertigo/spinning sensation, gait abnormalities, or tremors. ENT: No hearing loss, otalgia, otorrhea, rhinitis, rhinorrhea, hoarseness, or sore throat. CARDIOVASCULAR: Denies any exertional angina, dyspnea on exertion, orthopnea, paroxysmal nocturnal dyspnea, palpitations, life-threatening arrhythmias, claudication. PULMONARY: Denies any shortness of breath, cough, phlegm/sputum, hemoptysis, pleuritic chest pain. SLEEP: Denies morning headaches, daytime somnolence or napping. Denies dif ficulty falling asleep, staying asleep, waking from sleep. Denies knowledge of snoring. GASTROINTESTINAL: Denies any type of dysphagia to either liquids or solids. Denies nausea, vomiting, pyrosis, early satiety, abdominal pain, diarrhea, constipation, or changes in stool consistency or caliber. Denies coffee-ground emesis, hematemesis, hematochezia, or melanotic stools. GENITOURINARY: Denies frequency, urgency, nocturia, hematuria or incontinence (Storage/Irritative symptoms.) Low urinary stream, straining to void, urinary intermittency or hesitancy, splitting of the voiding stream, terminal dribbling. ENDOCRINOLOGIC: Denies polyuria, polydipsia, polyphagia or heat/cold i ntolerances. HEMATOLOGIC: Denies thrombophilia/previous clots, or coagulopathy/bleeding disorders. ONCOLOGIC: Denies personal history of malignancy. DERMATOLOGIC: Denies rashes or pruritus. PSYCHIATRIC: Denies any suicidal or homicidal ideation. Denies hallucinations. PHYSICAL EXAM GENERAL APPEARANCE: The patient is awake, alert, and oriented, in no acute cardiopulmonary distress. NEUROLOGICAL: Cranial nerves II-XII grossly intact. Motor is 5/5 in bilateral upper and lower extremities proximal to distal. No sensory deficits. HEENT: Face is symmetric. Pupils are equal and reactive. Extraocular movements are intact. NECK: Supple. No JVD. No thyromegaly. No submental, submandibular, pre- /postauricular, occipital or supraclavicular lymphadenopathy. CHEST: Normal chest expansion. No Telemetry. LUNGS: Absence of any rales, rhonchi or any wheezing. CARDIOVASCULAR: Regular. S1 and S2 normal. No appreciable rubs, murmurs or gallops. ABDOMEN: Soft, nontender, and nondistended. There is no rebound, voluntary guarding, or rigidity. : Deferred. No Avery. EXTREMITIES: Non-edematous and not cyanotic. No clubbing. Good capillary refill. SKIN: No skin breakdown. Vital Signs (last 8hr) Date Time Temp Pulse Resp B/P (MAP) Pulse Ox O2 Delivery O2 Flow Rate FiO2 08/21/24 18:49 84 18 08/21/24 16:05 Room Air* 0 21 08/21/24 16:05 99.1 81 18 128/73 93 Room Air 08/21/24 15:38 97.0 77 17 107/59 96 Room Air* 0 21 08/21/24 12:05 82 18 08/21/24 12:00 82 19 115/70 98 Room Air* 0 21 LABS: Laboratory: Test 08/21/24 08:11 08/20/24 07:45 08/20/24 05:50 08/20/24 01:50 Range/Units Vancomycin Level Trough 12.8 # 10.0-20.0 UG/ML White Blood Count 11.6 #H 4.8-10.8 K/uL Red Blood Count 2.64 #L 4.50-6.20 MIL/uL Hemoglobin 7.8 #L 14.0-18.0 g/dL Hematocrit 24.4 #L 42-54 % Mean Corpuscular Volume 92.4 79-99 fL Mean Corpuscular Hemoglobin 29.5 27.0-33.0 pg Mean Corpuscular Hemoglobin Concent 32.0 32.0-36.0 g/dL Red Cell Distribution Width 13.9 11.0-15.5 % Platelet Count 326 130-400 K/uL Mean Platelet Volume 8.8 7.5-10.5 fL Immature Granulocyte % (Auto) 0.4 0-1 % Neutrophils (%) (Auto) 76.7 40.0-77.0 % Lymphocytes (%) (Auto) 13.2 L 21.0-51.0 % Monocytes (%) (Auto) 7.0 3.0-13.0 % Eosinophils (%) (Auto) 1.9 0.0-8.0 % Basophils (%) (Auto) 0.8 0.0-5.0 % Neutrophils # (Auto) 8.9 H 1.8-7.7 K/uL Lymphocytes # (Auto) 1.5 1.0-4.8 K/uL Monocytes # (Auto) 0.8 0.1-1.0 K/uL Eosinophils # (Auto) 0.22 0.00-0.70 K/uL Basophils # (Auto) 0.09 0.00-0.20 K/uL Absolute Immature Granulocyte (auto 0.05 0-1 K/uL Nucleated Red Blood Cells 0.0 0.0-0.19 % Sodium Level 141 136-145 mmol/L Potassium Level 3.8 3.5-5.1 mmol/L Chloride Level 109 101-111 mmol/L Carbon Dioxide Level 22 21-32 mmol/L Blood Urea Nitrogen 18 7-18 mg/dL Creatinine 0.8 0.5-1.3 mg/dL Glomerular Filtration Rate Calc 97 >90 mL/min Random Glucose 98 # 70-105 mg/dL Total Calcium 8.7 8.5-10.1 mg/dL Phosphorus Level 3.4 2.5-4.9 mg/dL Magnesium Level 1.40 L 1.80-2.40 mg/dL Urine Color COLORLESS YELLOW Urine Appearance CLEAR CLEAR Urine pH 5.5 5.0-8.0 Urine Specific Crary 1.009 1.001-1.031 Urine Protein NEGATIVE NEGATIVE mg/dL Urine Glucose (UA) NEGATIVE NEGATIVE mg/dL Urine Ketones 5 H NEGATIVE mg/dL Urine Occult Blood NEGATIVE NEGATIVE Urine Nitrate NEGATIVE NEGATIVE Urine Bilirubin NEGATIVE NEGATIVE mg/dL Urine Urobilinogen 0.2 0.2-1.0 mg/dL Urine Leukocyte Esterase NEGATIVE NEGATIVE Shelley/uL Urine RBC None Seen 0-1 /HPF Urine WBC None Seen 0-1 /HPF Urine Squamous Epithelial Cells Rare 0-2 /HPF Urine Bacteria None Seen None Seen /HPF Lactic Acid Level 1.0 0.8-2.5 mmol/L Current Medications Medications (Trade) Dose Ordered Sig/Citlaly Route PRN Reason Start Time Stop Time Status Last Admin Dose Admin Acetaminophen (TYLenol 325MG TAB) 650 mg Q6H PRN PO TEMPERATURE GREATER THAN 101.5 08/19/24 22:30 09/18/24 22:29 Albuterol (DUOneb) 1 UDVIAL [id number] IH 08/20/24 00:00 09/19/24 00:00 08/21/24 18:48 1 UDVIAL Enoxaparin Sodium (Lovenox) 40 mg DAILY SQ 08/20/24 09:00 09/19/24 08:59 08/21/24 10:37 40 MG Famotidine (Pepcid 20mg Tab) 20 mg DAILY PO 08/20/24 09:00 09/19/24 08:59 08/21/24 10:37 20 MG Guaifenesin (RobiTUSSin SUGAR-FREE 100 MG/ 5 ML UDCUP) 400 mg Q4H PRN PO cough 08/19/24 22:30 09/18/24 22:29 Hydralazine HCl (APRESOLine 20MG INJ) 10 mg Q6H PRN IV For:SBP above 160;DBP above 90 08/19/24 22:30 09/18/24 22:29 Metoprolol Tartrate (loprESSOR) 12.5 mg BID PO 08/20/24 09:00 09/19/24 08:59 08/21/24 10:38 12.5 MG Morphine Sulfate (morPHINE 2MG SYG) 2 mg Q4H PRN IVP SEVERE PAIN (7-10) 08/19/24 22:30 08/26/24 22:29 Nicotine (Nicoderm) 21 mg DAILY TD 08/20/24 09:00 09/19/24 08:59 08/21/24 10:38 21 MG Ondansetron HCl (zoFRAN 4MG INJ) 4 mg Q6H PRN IV NAUSEA/VOMITING 08/19/24 22:30 09/18/24 22:29 08/20/24 01:44 4 MG Pharmacy Profile Note (Lace Assessment) 1 each AD MISC 08/20/24 15:30 08/21/24 07:56 DC Piperacillin Sod/ Tazobactam Sod (Zosyn 3.375gm+NS 50ml) 3.375 gm Q8H IV 08/20/24 03:30 08/20/24 20:22 DC 08/20/24 12:42 3.375 GM Piperacillin Sod/ Tazobactam Sod (Zosyn 3.375gm+NS 50ml) 3.375 gm Q8H IV 08/20/24 22:00 08/30/24 21:59 08/21/24 14:07 3.375 GM Vancomycin HCl (Vancomycin 750mg) 750 mg Q12H IVPB 08/20/24 08:00 08/30/24 07:59 08/21/24 12:52 750 MG Vancomycin HCl (Vancomycin Protocol) 1 each AD IV 08/19/24 19:30 09/02/24 19:29 DIAGNOSTICS / RADIOLOGY: [ ] ASSESSMENT: [ pneumonia occasional tobacco use htn] PLAN: [continue iv abx of both vanco and zosyn continue neb tx's of albuterol continue nicotine replacement continue betablocker ] DENNIS AGOSTO MD Aug 21, 2024 20:17
[2024-08-22] VITALS (15 sets, daily range): BP systolic 116–130; BP diastolic 74–76; PULSE 70–94; RESP 18–19; TEMP 98.4–99.3; O2SAT 96–100
[2024-08-22] MEDS ORDERED: MAGNESIUM 2GM PREMIX 50ML 50 ML IV SCH (13:00)
--- NOTE | 2024-08-22 13:00 | PN ---
[facility] PROGRESS NOTE Date of Service: Aug 22, 2024 Time of Service: 12:54 SUBJECTIVE: 69-year-old male admitted for shortness of breaths and cough. Apparently he was recently discharged from our hospital after being treated with pneumonia. Patient was hypoxemic on arrival with O2 sat at 88% on room air. Patient was evaluated this morning in his room, he is alert and oriented, stated that he feels improved from the admission time. He is on room air, saturating at 100%. For now, we will continue with IV antibiotics, [place] [address] on with latest WBC 00976, no labs for today. REVIEW OF SYSTEMS CONSTITUTIONAL: Denies fevers, chills, or night sweats. No unintentional weight loss reported. NEUROLOGICAL: Denies headache, amaurosis fugax, motor weakness, sensory deficit, vertigo/spinning sensation, gait abnormalities, or tremors. ENT: No hearing loss, otalgia, otorrhea, rhinitis, rhinorrhea, hoarseness, or sore throat. CARDIOVASCULAR: Denies any exertional angina, dyspnea on exertion, orthopnea, paroxysmal nocturnal dyspnea, palpitations, life-threatening arrhythmias, claudication. PULMONARY: Denies any shortness of breath, cough, phlegm/sputum, hemoptysis, pleuritic chest pain. SLEEP: Denies morning headaches, daytime somnolence or napping. Denies difficulty falling asleep, staying asleep, waking from sleep. Denies knowledge of snoring. GASTROINTESTINAL: Denies any type of dysphagia to either liquids or solids. Denies nausea, vomiting, pyrosis, early satiety, abdominal pain, diarrhea, constipation, or changes in stool consistency or caliber. Denies coffee-ground emesis, hematemesis, hematochezia, or melanotic stools. GENITOURINARY: Denies frequency, urgency, nocturia, hematuria or incontinence (Storage/Irritative symptoms.) Low urinary stream, straining to void, urinary intermittency or hesitancy, splitting of the voiding stream, terminal dribbling. ENDOCRINOLOGIC: Denies polyuria, polydipsia, polyphagia or heat/cold intolerances. HEMATOLOGIC: Denies thrombophilia/previous clots, or coagulopathy/bleeding disorders. ONCOLOGIC: Denies personal history of malignancy. DERMATOLOGIC: Denies rashes or pruritus. PSYCHIATRIC: Denies any suicidal or homicidal ideation. Denies hallucinations. PHYSICAL EXAM GENERAL APPEARANCE: The patient is awake, alert, and oriented, in no acute cardiopulmonary distress. NEUROLOGICAL: Cranial nerves II-XII grossly intact. Motor is 5/5 in bilateral upper and lower extremities proximal to distal. No sensory deficits. HEENT: Face is symmetric. Pupils are equal and reactive. Extraocular movements are intact. NECK: Supple. No JVD. No thyromegaly. No submental, submandibular, pre- /postauricular, occipital or supraclavicular lymphadenopathy. CHEST: Normal chest expansion. No Telemetry. LUNGS: Absence of any rales, rhonchi or any wheezing. CARDIOVASCULAR: Regular. S1 and S2 normal. No appreciable rubs, murmurs or gallops. ABDOMEN: Soft, nontender, and nondistended. There is no rebound, voluntary guarding, or rigidity. : Deferred. No Avery. EXTREMITIES: Non-edematous and not cyanotic. No clubbing. Good capillary refill. SKIN: No skin breakdown. Vital Signs (last 8hr) Date Time Temp Pulse Resp B/P (MAP) Pulse Ox O2 Delivery O2 Flow Rate FiO2 08/22/24 11:56 71 18 08/22/24 11:19 98.6 76 18 118/76 100 Room Air 08/22/24 08:00 100 Room Air* 0 21 08/22/24 07:55 99.1 77 18 119/74 100 Room Air 08/22/24 07:01 94 18 N/A Room Air 21 08/22/24 07:00 74 18 LABS: Laboratory: Test 08/21/24 08:11 Range/Units Vancomycin Level Trough 12.8 # 10.0-20.0 UG/ML Current Medications Medications (Trade) Dose Ordered Sig/Citlaly Route PRN Reason Start Time Stop Time Status Last Admin Dose Admin Acetaminophen (TYLenol 325MG TAB) 650 mg Q6H PRN PO TEMPERATURE GREATER THAN 101.5 08/19/24 22:30 09/18/24 22:29 Albuterol (DUOneb) 1 UDVIAL [id number] IH 08/20/24 00:00 09/19/24 00:00 08/22/24 11:55 1 UDVIAL Enoxaparin Sodium (Lovenox) 40 mg DAILY SQ 08/20/24 09:00 09/19/24 08:59 08/22/24 08:15 40 MG Famotidine (Pepcid 20mg Tab) 20 mg DAILY PO 08/20/24 09:00 09/19/24 08:59 08/22/24 08:17 20 MG Guaifenesin (RobiTUSSin SUGAR-FREE 100 MG/ 5 ML UDCUP) 400 mg Q4H PRN PO cough 08/19/24 22:30 09/18/24 22:29 Hydralazine HCl (APRESOLine 20MG INJ) 10 mg Q6H PRN IV For:SBP above 160;DBP above 90 08/19/24 22:30 09/18/24 22:29 Magnesium Sulfate 50 ml @ 0 mls/hr PROTOCOL IV 08/22/24 13:00 09/21/24 12:59 Metoprolol Tartrate (loprESSOR) 12.5 mg BID PO 08/20/24 09:00 09/19/24 08:59 08/22/24 08:15 12.5 MG Morphine Sulfate (morPHINE 2MG SYG) 2 mg Q4H PRN IVP SEVERE PAIN (7-10) 08/19/24 22:30 08/26/24 22:29 Nicotine (Nicoderm) 21 mg DAILY TD 08/20/24 09:00 09/19/24 08:59 08/22/24 08:16 21 MG Ondansetron HCl (zoFRAN 4MG INJ) 4 mg Q6H PRN IV NAUSEA/VOMITING 08/19/24 22:30 09/18/24 22:29 08/20/24 01:44 4 MG Pharmacy Profile Note (Lace Assessment) 1 each AD MISC 08/20/24 15:30 08/21/24 07:56 DC Piperacillin Sod/ Tazobactam Sod (Zosyn 3.375gm+NS 50ml) 3.375 gm Q8H IV 08/20/24 03:30 08/20/24 20:22 DC 08/20/24 12:42 3.375 GM Piperacillin Sod/ Tazobactam Sod (Zosyn 3.375gm+NS 50ml) 3.375 gm Q8H IV 08/20/24 22:00 08/30/24 21:59 08/22/24 06:28 3.375 GM Vancomycin HCl (Vancomycin 750mg) 750 mg Q12H IVPB 08/20/24 08:00 08/30/24 07:59 08/21/24 20:05 750 MG Vancomycin HCl (Vancomycin Protocol) 1 each AD IV 08/19/24 19:30 09/02/24 19:29 DIAGNOSTICS / RADIOLOGY: [ ] ASSESSMENT: [ Acute respiratory failure, with hypoxemia, POA Sepsis, POA (due to pneumonia) Community-acquired pneumonia, POA History of right lower lobe pneumonia, POA Leukocytosis, POA -slowly downtrending Occasional tobacco abuse History of hypertension 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 Continue to follow-up with microbiology GI and DVT prophylaxis Continue with supportive treatment with guaifenesin and Tylenol Repeat labs tomorrow Case discussed with Dr. Garcia, above plan was formulated] ATTESTATION BY PHYSICIAN I have seen and examined the patient. I reviewed the documentation, medical decision making, and treatment plan as noted by the mid-level provider above. I agree with the findings and plan of care. MILLER GARCIA MD, [facility] Aug 22, 2024 13:00
[2024-08-22 13:38] LABS: HEMATOCRIT 27.9 % (42-54); MEAN CORPUSCULAR HEMOGLOBIN 30.1 pg (27.0-33.0); MEAN CORPUSCULAR HGB CONC 31.9 g/dL (32.0-36.0); MEAN CORPUSCULAR VOLUME 94.3 fL (79-99); RED BLOOD CELL COUNT(AUTO) 2.96 MIL/uL (4.50-6.20); WHITE BLOOD COUNT (AUTO) 9.8 K/uL (4.8-10.8)
[2024-08-22 13:44] LABS: CREATININE 1.1 mg/dL (0.5-1.3); POTASSIUM 3.3 mmol/L (3.5-5.1)
[2024-08-22] MEDS: APIXaban 5 MG TABLET PO SCH (20:20)
[2024-08-23] VITALS (16 sets, daily range): BP systolic 102–134; BP diastolic 65–78; PULSE 63–91; RESP 15–20; TEMP 97.9–98.4; O2SAT 92–100
[2024-08-23 05:37] LABS: HEMATOCRIT 23.7 % (42-54); MEAN CORPUSCULAR HEMOGLOBIN 29.8 pg (27.0-33.0); MEAN CORPUSCULAR HGB CONC 32.1 g/dL (32.0-36.0); MEAN CORPUSCULAR VOLUME 92.9 fL (79-99); RED BLOOD CELL COUNT(AUTO) 2.55 MIL/uL (4.50-6.20); RED CELL DISTRIBUTION WIDTH 13.7 % (11.0-15.5); WHITE BLOOD COUNT (AUTO) 8.8 K/uL (4.8-10.8)
[2024-08-23 06:07] LABS: CREATININE 1.1 mg/dL (0.5-1.3); MAGNESIUM 1.4 mg/dL (1.80-2.40); POTASSIUM 3.6 mmol/L (3.5-5.1)
[2024-08-23] MEDS: FOLIC ACID 0.4 MG PO SCH (09:00)
[2024-08-23] MEDS: PANTOPrazole 40 MG TAB DR PO SCH (09:38)
[2024-08-23] MEDS: THIAMINE HCL 100 MG TABLET PO SCH (09:38)
--- NOTE | 2024-08-23 11:34 | PN ---
[facility] PROGRESS NOTE Date of Service: Aug 23, 2024 Time of Service: 11:27 SUBJECTIVE: 69-year-old male admitted for shortness of breaths and cough. Apparently he was recently discharged from our hospital after being treated with pneumonia. Patient was hypoxemic on arrival with O2 sat at 88% on room air. Patient is saturating 96% on room air. Labs reviewed, WBC improving. We will request respiratory for 6 minute walk in physical therapy to eval and treat. Patient is afebrile. We will continue with IV antibiotics on Zosyn and vanco. REVIEW OF SYSTEMS CONSTITUTIONAL: Denies fevers, chills, or night sweats. No unintentional weight loss reported. NEUROLOGICAL: Denies headache, amaurosis fugax, motor weakness, sensory deficit, vertigo/spinning sensation, gait abnormalities, or tremors. ENT: No hearing loss, otalgia, otorrhea, rhinitis, rhinorrhea, hoarseness, or sore throat. CARDIOVASCULAR: Denies any exertional angina, dyspnea on exertion, orthopnea, paroxysmal nocturnal dyspnea, palpitations, life-threatening arrhythmias, claudication. PULMONARY: Denies any shortness of breath, cough, phlegm/sputum, hemoptysis, p leuritic chest pain. SLEEP: Denies morning headaches, daytime somnolence or napping. Denies difficulty falling asleep, staying asleep, waking from sleep. Denies knowledge of snoring. GASTROINTESTINAL: Denies any type of dysphagia to either liquids or solids. Denies nausea, vomiting, pyrosis, early satiety, abdominal pain, diarrhea, constipation, or changes in stool consistency or caliber. Denies coffee-ground emesis, hematemesis, hematochezia, or melanotic stools. GENITOURINARY: Denies frequency, urgency, nocturia, hematuria or incontinence (Storage/Irritative symptoms.) Low urinary stream, straining to void, urinary intermittency or hesitancy, splitting of the voiding stream, terminal dribbling. ENDOCRINOLOGIC: Denies polyuria, polydipsia, polyphagia or heat/cold intoler ances. HEMATOLOGIC: Denies thrombophilia/previous clots, or coagulopathy/bleeding disorders. ONCOLOGIC: Denies personal history of malignancy. DERMATOLOGIC: Denies rashes or pruritus. PSYCHIATRIC: Denies any suicidal or homicidal ideation. Denies hallucinations. PHYSICAL EXAM GENERAL APPEARANCE: The patient is awake, alert, and oriented, in no acute cardiopulmonary distress. NEUROLOGICAL: Cranial nerves II-XII grossly intact. Motor is 5/5 in bilateral upper and lower extremities proximal to distal. No sensory deficits. HEENT: Face is symmetric. Pupils are equal and reactive. Extraocular movements are intact. NECK: Supple. No JVD. No thyromegaly. No submental, submandibular, pre- /postauricular, occipital or supraclavicular lymphadenopathy. CHEST: Normal chest expansion. No Telemetry. LUNGS: Absence of any rales, rhonchi or any wheezing. CARDIOVASCULAR: Regular. S1 and S2 normal. No appreciable rubs, murmurs or gallops. ABDOMEN: Soft, nontender, and nondistended. There is no rebound, voluntary guarding, or rigidity. : Deferred. No Avery. EXTREMITIES: Non-edematous and not cyanotic. No clubbing. Good capillary refill. SKIN: No skin breakdown. Vital Signs (last 8hr) Date Time Temp Pulse Resp B/P (MAP) Pulse Ox O2 Delivery O2 Flow Rate FiO2 08/23/24 11:03 76 18 N/A Room Air 21 08/23/24 08:00 98.1 82 15 102/68 96 Room Air 0.0 08/23/24 08:00 100 Room Air* 0 21 08/23/24 06:28 75 18 N/A Room Air 21 08/23/24 06:26 75 18 08/23/24 04:26 98.1 86 18 105/65 96 Room Air 21 LABS: Laboratory: Test 08/23/24 07:22 08/23/24 05:13 Range/Units Vancomycin Level Trough 22.1 #H 10.0-20.0 UG/ML White Blood Count 8.8 4.8-10.8 K/uL Red Blood Count 2.55 L 4.50-6.20 MIL/uL Hemoglobin 7.6 L 14.0-18.0 g/dL Hematocrit 23.7 L 42-54 % Mean Corpuscular Volume 92.9 79-99 fL Mean Corpuscular Hemoglobin 29.8 27.0-33.0 pg Mean Corpuscular Hemoglobin Concent 32.1 32.0-36.0 g/dL Red Cell Distribution Width 13.7 11.0-15.5 % Platelet Count 324 130-400 K/uL Mean Platelet Volume 8.9 7.5-10.5 fL Nucleated Red Blood Cells 0.0 0.0-0.19 % Sodium Level 142 136-145 mmol/L Potassium Level 3.6 3.5-5.1 mmol/L Chloride Level 108 101-111 mmol/L Carbon Dioxide Level 24 21-32 mmol/L Blood Urea Nitrogen 8 7-18 mg/dL Creatinine 1.1 0.5-1.3 mg/dL Glomerular Filtration Rate Calc 74 >90 mL/min Random Glucose 96 70-105 mg/dL Total Calcium 8.9 8.5-10.1 mg/dL Magnesium Level 1.40 L 1.80-2.40 mg/dL Current Medications Medications (Trade) Dose Ordered Sig/Citlaly Route PRN Reason Start Time Stop Time Status Last Admin Dose Admin Acetaminophen (TYLenol 325MG TAB) 650 mg Q6H PRN PO TEMPERATURE GREATER THAN 101.5 08/19/24 22:30 09/18/24 22:29 Albuterol (DUOneb) 1 UDVIAL [id number] IH 08/20/24 00:00 09/19/24 00:00 08/23/24 11:00 1 UDVIAL Apixaban (EliquIS) 5 mg BID PO 08/22/24 21:00 09/21/24 20:59 08/23/24 09:38 5 MG Enoxaparin Sodium (Lovenox) 40 mg DAILY SQ 08/20/24 09:00 08/22/24 13:07 DC 08/22/24 08:15 40 MG Famotidine (Pepcid 20mg Tab) 20 mg DAILY PO 08/20/24 09:00 08/22/24 13:05 DC 08/22/24 08:17 20 MG Guaifenesin (RobiTUSSin SUGAR-FREE 100 MG/ 5 ML UDCUP) 400 mg Q4H PRN PO cough 08/19/24 22:30 09/18/24 22:29 Home Med (Home Medication) FOLIC ACID 0.4 MG DAILY PO 08/23/24 09:00 09/22/24 08:59 Hydralazine HCl (APRESOLine 20MG INJ) 10 mg Q6H PRN IV For:SBP above 160;DBP above 90 08/19/24 22:30 09/18/24 22:29 Magnesium Sulfate 50 ml @ 0 mls/hr PROTOCOL IV 08/22/24 13:00 09/21/24 12:59 Metoprolol Tartrate (loprESSOR) 12.5 mg BID PO 08/20/24 09:00 09/19/24 08:59 08/23/24 09:38 12.5 MG Morphine Sulfate (morPHINE 2MG SYG) 2 mg Q4H PRN IVP SEVERE PAIN (7-10) 08/19/24 22:30 08/26/24 22:29 Nicotine (Nicoderm) 21 mg DAILY TD 08/20/24 09:00 09/19/24 08:59 08/23/24 09:39 21 MG Ondansetron HCl (zoFRAN 4MG INJ) 4 mg Q6H PRN IV NAUSEA/VOMITING 08/19/24 22:30 09/18/24 22:29 08/20/24 01:44 4 MG Pantoprazole Sodium (PROTonix 40MG TAB) 40 mg DAILY PO 08/23/24 09:00 09/22/24 08:59 08/23/24 09:38 40 MG Pharmacy Profile Note (Lace Assessment) 1 each AD MISC 08/20/24 15:30 08/21/24 07:56 DC Piperacillin Sod/ Tazobactam Sod (Zosyn 3.375gm+NS 50ml) 3.375 gm Q8H IV 08/20/24 03:30 08/20/24 20:22 DC 08/20/24 12:42 3.375 GM Piperacillin Sod/ Tazobactam Sod (Zosyn 3.375gm+NS 50ml) 3.375 gm Q8H IV 08/20/24 22:00 08/30/24 21:59 08/23/24 05:10 3.375 GM Thiamine HCl (Vitamin B-1) 100 mg DAILY PO 08/23/24 09:00 09/22/24 08:59 08/23/24 09:38 100 MG Vancomycin HCl (Vancomycin 750mg) 750 mg Q12H IVPB 08/20/24 08:00 08/23/24 09:16 DC 08/22/24 20:19 750 MG Vancomycin HCl (Vancomycin 750mg) 750 mg Q12H IVPB 08/23/24 12:00 09/02/24 11:59 Vancomycin HCl (Vancomycin Protocol) 1 each AD IV 08/19/24 19:30 09/02/24 19:29 DIAGNOSTICS / RADIOLOGY: [ ] ASSESSMENT: [ Acute respiratory failure, with hypoxemia, POA Sepsis, POA (due to pneumonia) Community-acquired pneumonia, POA History of right lower lobe pneumonia, POA Leukocytosis, POA -slowly downtrending Occasional tobacco abuse History of hypertension 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 Continue to follow-up with microbiology GI and DVT prophylaxis Continue with supportive treatment with guaifenesin and Tylenol Repeat labs tomorrow We will request RT for 6 minute Physical therapy to eval and treat Case discussed with Dr. Garcia, above plan was formulated] ATTESTATION BY PHYSICIAN I have seen and examined the patient. I reviewed the documentation, medical decision making, and treatment plan as noted by the mid-level provider above. I agree with the findings and plan of care. MILLER GARCIA MD, [facility] Aug 23, 2024 11:34
[2024-08-23] MEDS: VANCOMYCIN 750MG VIAL IVPB SCH (11:38)
--- NOTE | 2024-08-23 22:24 | NUR ---
INFORMED AMANDA SECY FROM [facility] THAT PATIENT HAD A POTASSIUM OF 3.6 MMOL/L. NO ORDERS GIVEN FOR POTASSIUM COVERAGE PER PROTOCOL.
[2024-08-23] MEDS: MAGNESIUM 2GM PREMIX 50ML 50 ML IV SCH (23:33)
[2024-08-24 03:16] VITALS: BP 110/68; PULSE 67; RESP 16; TEMP 98
[2024-08-24 05:10] LABS: CREATININE 0.9 mg/dL (0.5-1.3); POTASSIUM 3.5 mmol/L (3.5-5.1)
[2024-08-24 05:11] LABS: HEMATOCRIT 25.2 % (42-54); MEAN CORPUSCULAR HEMOGLOBIN 29.6 pg (27.0-33.0); MEAN CORPUSCULAR HGB CONC 32.5 g/dL (32.0-36.0); RED BLOOD CELL COUNT(AUTO) 2.77 MIL/uL (4.50-6.20); RED CELL DISTRIBUTION WIDTH 13.5 % (11.0-15.5); WHITE BLOOD COUNT (AUTO) 8.2 K/uL (4.8-10.8)
[2024-08-24 06:35] VITALS: PULSE 82; RESP 18
[2024-08-24 06:36] VITALS: PULSE 82; RESP 18; O2SAT 98
[2024-08-24 08:00] VITALS: BP 112/67; PULSE 70; RESP 20; TEMP 97.9
[2024-08-24] MEDS: PoTASSium chloRIDE 20MEQ ER 20 MEQ ERTAB PO ONE (10:58)
[2024-08-24 11:05] VITALS: PULSE 73; RESP 18
[2024-08-24 12:00] VITALS: BP 93/56; PULSE 69; RESP 18; TEMP 97.6
--- NOTE | 2024-08-24 13:05 | NUR ---
CM NOTE: POC CM MET WITH PT, GIVEN GOOD RX CARD FOR HIS LEVAQUIN PRESCRIPTION. HEIDI W/DEPT AGING ALREADY FOLLOWING PATIENT. PT IS NON-COMPLIANT STILL PENDING TO SUBMIT DOCUMENTS THAT WERE REQUESTED. PT REFUSED TO GO TO LONG TERM, SAID HE'LL GO ON THE STREET AND JUST COME BACK TO HOSPITAL IF NEEDED. HOUSE SUPER TO ASSIST W/LYFT RIDE IF NEEDED. PRIMARY NURSE YOHAN ANDERSEN. JIHAN HOYOS UPDATED. DCP WHEREVER PT WISH TO GO. CM TO CONTINUE TO FOLLOW UP. Addendum: 08/24/24 at 1308 by ABIMBOLA MIRANDA LVN Amended: Links added.
--- NOTE | 2024-08-24 13:41 | DS ---
Discharge Summary Hospital Course Summary: 69-year-old male admitted for shortness of breaths and cough. Apparently he was recently discharged from our hospital after being treated with pneumonia. Patient was hypoxemic on arrival with O2 sat at 88% on room air which is now improved after O2 supplementation was started but now patient is on room air with saturation at 96%. We also evaluated the patient for 6 minute walk to evaluate for home oxygen but patient did not qualify due to good saturation while ambulating. He has been afebrile, his WBC has improved. He received four days' worth of IV antibiotics. Patient is now cleared and stable hemodynamically. He has been afebrile. Cultures came back unremarkable except for Rakel albicans on the sputum. We are recommending patient to clinical social work therapist due to social determinants- no insurance and homelessness. Patient was known to be noncompliant. All his home medications has not reconciled. Patient is hemodynamically stable. Afebrile, WBC is within normal limit. I am working with case management and clinical social work therapist to safely discharge this patient. He was written prescription for Levaquin 500 mg p.o. daily x3 days, he was given [facility] card for medication. Procedure(s): [place] [id number] [id number] IMAGING REPORT Signed PATIENT: TEN CAR MR#: [id number] : 1955 SEX: M AGE: 69 LOCATION: [facility] ORDER 45 STATUS: [facility] REPORT#: [id number] SERVICE 44 REASON: sob,cough ORDERING PHYSICIAN: KIMBERLY ERNANDEZ PROCEDURE: CXR1VW - CHEST 1VW CHEST 1VW HISTORY: Shortness of breath COMPARISON: 08/09/2024 FINDINGS: A frontal projection of the chest was obtained. Mild bilateral pulmonary infiltrates are seen may be related to mild pulmonary vascular congestion with possible superimposed pneumonitis. The heart is borderline enlarged. Degenerative changes are seen. No evidence of aortic calcification is seen. IMPRESSION: 1. Mild bilateral pulmonary infiltrates are seen may be related to mild pulmonary vascular congestion with possible superimposed pneumonitis. 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, patient is is on Eliquis, POA Chronic Systolic heart failure with ejection fraction of 45-50% Acute on chronic kidney disease Atrial fibrillation with controlled rate Acute on chronic anemia, POA Right-sided hiatal hernia, POA Homelessness, POA Medication noncompliance Chronic Intermittent B/L lower extremity pain, POA Admitting diagnoses [ Acute respiratory failure, with hypoxemia, POA Sepsis, POA (due to pneumonia) Community-acquired pneumonia, POA History of right lower lobe pneumonia, POA Leukocytosis, POA -slowly downtrending Occasional tobacco abuse History of hypertension 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 daily x3 days Went over adverse reaction and side effects of new medications Home Medications: Active Scripts Apixaban (Eliquis) 5 Mg Tablet, 1 TAB PO BID for 30 Days, #60 TAB 0 Refills Prov:CHICA DAVILA MD 07/19/24 Thiamine HCl (B-1) 100 Mg Tablet, 100 MG PO DAILY for 30 Days, #30 TAB 1 Refill Prov:MILLER GARCIA MD 03/25/24 Folic Acid (Folic Acid) 0.4 Mg Tablet, 0.4 MG PO DAILY for 30 Days, #30 TAB 1 Refill Prov:MILLER GARCIA MD 03/25/24 Pantoprazole Sodium (Protonix) 40 Mg Ectab, 40 MG PO DAILY for 30 Days, #30 TAB.EC 1 Refill Prov:MILLER GARCIA MD 03/25/24 Time spent arranging discharge: 31-60 minutes ATTESTATION BY PHYSICIAN I have seen and examined the patient. I reviewed the documentation, medical decision making, and treatment plan as noted by the mid-level provider above. I agree with the findings and plan of care. MILLER GARCIA MD, JANICE [facility] Aug 24, 2024 13:41
[2024-08-24] MEDS ORDERED: levoFLOXacin 500 MG TABLET PO SCH (15:00)
--- NOTE | 2024-08-24 15:18 | NUR ---
PATIENT D/C. TELE REMOVED AND IV REMOVED. LEVAQUIN GIVEN TO PATIENT TO CONTINUE. REYNA CALLED TO TRANSFER PATIENT TO WHERE HE WANTED TO GO
== END 2024-08-24 15:55 | disposition home or self-care (01) | DRG 871 ==
LOC: EDH 18:30 → EDHIP 18:31 → 4CH 08-21 16:05
PROVIDERS: ADMIT Internal Medicine; ATTEND Internal Medicine
DX: A41.9 Sepsis, unspecified organism (principal); J18.9 Pneumonia, unspecified organism; J96.01 Acute respiratory failure with hypoxia; E87.20 Acidosis, unspecified; Z59.00 Homelessness unspecified; I50.22 Chronic systolic (congestive) heart failure; I13.0 Hypertensive heart and chronic kidney disease with heart failure and stage 1 through stage 4 chronic kidney disease, or unspecified chronic kidney disease; I48.91 Unspecified atrial fibrillation; D64.9 Anemia, unspecified; E11.22 Type 2 diabetes mellitus with diabetic chronic kidney disease; K44.9 Diaphragmatic hernia without obstruction or gangrene; F17.210 Nicotine dependence, cigarettes, uncomplicated; N18.9 Chronic kidney disease, unspecified; Z51.5 Encounter for palliative care; Z79.01 Long term (current) use of anticoagulants; Z91.148 Patient's other noncompliance with medication regimen for other reason; Z91.199 Patient's noncompliance with other medical treatment and regimen due to unspecified reason
CPT/HCPCS: 36415; 71045; 80048; 80202; 81001; 82550; 83605; 83735; 83880; 84100; 84145; 84484; 85025; 85027; 87040; 87071; 87086; 87205; 87635; 87804; 93005; 94640; 94664; 94760; G0378; J1650; J2405; J2543; J3475; J7030; J3370

== ENCOUNTER 2024-08-24 22:51 | Emergency (ER) | payer SELFPAY ==
[~2024-08-24] VITALS: Ht 175.3 cm; Wt 72.6 kg
--- NOTE | 2024-08-24 23:19 | NUR ---
PT TAKEN TO CT AT THIS TIME WITH ED RN. PT SHOWS NO SIGNS OF DISTRESS.
[2024-08-24 23:23] LABS: BASOPHILS # (AUTO) 0.09 K/uL (0.00-0.20); EOSINOPHILS # (AUTO) 0.52 K/uL (0.00-0.70); EOSINOPHILS % (AUTO) 5.6 % (0.0-8.0); HEMATOCRIT 27.7 % (42-54); IMMATURE GRANULOCYTE ABSOLUTE 0.04 K/uL (0-1); LYMPHOCYTES # (AUTO) 2.9 K/uL (1.0-4.8); LYMPHOCYTES % (AUTO) 30.8 % (21.0-51.0); MEAN CORPUSCULAR HEMOGLOBIN 29.8 pg (27.0-33.0); MEAN CORPUSCULAR HGB CONC 32.1 g/dL (32.0-36.0); MEAN CORPUSCULAR VOLUME 92.6 fL (79-99); MONOCYTES # (AUTO) 0.6 K/uL (0.1-1.0); MONOCYTES % (AUTO) 6.2 % (3.0-13.0); NEUTROPHILS # (AUTO) 5.2 K/uL (1.8-7.7); PLATELET COUNT (AUTO) 396 K/uL (130-400); RED BLOOD CELL COUNT(AUTO) 2.99 MIL/uL (4.50-6.20); RED CELL DISTRIBUTION WIDTH 13.8 % (11.0-15.5); WHITE BLOOD COUNT (AUTO) 9.4 K/uL (4.8-10.8)
--- NOTE | 2024-08-24 23:26 | NUR ---
PT BACK FROM CT AND PLACED BACK IN ED ROOM 18 AT THIS TIME. PT SHOWS NO SIGNS OF DISTRESS.
[2024-08-24 23:31] LABS: CREATININE 1.1 mg/dL (0.5-1.3); POTASSIUM 4.3 mmol/L (3.5-5.1)
[2024-08-24 23:37] LABS: INR 1.02 (0.85-1.15); PROTHROMBIN TIME 11.4 SEC (9.6-11.6)
[2024-08-24 23:38] LABS: PARTIAL THROMBOPLASTIN TIME 28.2 SEC (26.3-35.5)
--- NOTE | 2024-08-25 01:43 | ERN ---
General Chief Complaint: Multiple Trauma/Fall Stated Complaint: S/P FALL Time Seen by MD: 22:53 Source: patient History of Present Illness Initial Comments Patient is a 69-year-old male coming in to be evaluated failure on fall. Per EMS patient fell down after being intoxicated. He had himself in the face and is complaining of nasal pain. Patient is a alert not oriented at the time. Allergies: Coded Allergies: No Known Drug Allergies (Unverified Allergy, Unknown, 03/22/24) Home Meds Active Scripts Apixaban (Eliquis) 5 Mg Tablet, 1 TAB PO BID for 30 Days, #60 TAB 0 Refills Prov:CHICA DAVILA MD 07/19/24 Thiamine HCl (B-1) 100 Mg Tablet, 100 MG PO DAILY for 30 Days, #30 TAB 1 Refill Prov:MILLER GARCIA MD 03/25/24 Folic Acid (Folic Acid) 0.4 Mg Tablet, 0.4 MG PO DAILY for 30 Days, #30 TAB 1 Refill Prov:MILLER GARCIA MD 03/25/24 Pantoprazole Sodium (Protonix) 40 Mg Ectab, 40 MG PO DAILY for 30 Days, #30 TAB.EC 1 Refill Prov:MILLER GARCIA MD 03/25/24 Past Medical History Past Medical History: GERD Medical History Other: HOSPITAL ACQUIRED PNEUMONIA Past Surgical History: None Social History Social History: ETOH ROS Dictation CONSTITUTIONAL: No chills, no fever, no weakness, no diaphoresis, no malaise. HEAD/FACE: signs of trauma. EENT: No eye pain, no blurred vision, no tearing, no double vision, no ear pain, no ear discharge, no nose pain, no nasal congestion, no throat pain, no throat swelling, no mouth pain. RESPIRATORY: No cough, no orthopnea, no SOB, no stridor, no wheezing. CARDIOVASCULAR: No chest pain, no edema, no palpitations, no syncope. GASTROINTESTINAL/ABDOMINAL: No abdominal pain, no constipation, no diarrhea, no nausea, no vomiting. GENITOURINARY: No abnormal discharge, no dysuria, no frequent urination, no hematuria. No complaints of pain in the genitals. MUSCULOSKELETAL: No back pain, no gout, no joint pain, no joint swelling, no muscle pain, no muscle stiffness, no neck pain. INTEGUMENTARY: No change in color, no change in hair/nails, no dryness, no lesion, no lumps, no rash. NEUROLOGICAL/PSYCH: No anxiety, not depressed, no emotional problem, no headache, no numbness, no pre-existing deficit, no history of seizures, no tremors, no weakness. HEMATOLOGIC/LYMPHATIC: Not anemic, no history of blood clots, no apparent bleeding, no bruising, glands not swollen. All Systems Negative, Except as Noted. Physical Exam Physical Exam Dictation VITAL SIGNS: Reviewed. GENERAL APPEARANCE: Alert, oriented x3, no acute distress, obese. HEAD AND FACE: Non-traumatic. EYES: PERRL, pink conjunctivas, eyelid no trauma, anterior chamber clear. EARS: Pinnas intact and no signs of trauma or erythema. Ear canals clear and no discharge. TMs no erythema. NOSE: No discharge, bleeding. OROPHARYNX: Mouth normal, teeth no caries, tongue pink. Pharynx clear, no erythema. Tonsils no exudates, no abscesses noted. Mucous membrane moist. NECK: Supple, non-tender, no thyromegaly, no masses, no JVD, no bruits. BREAST: Deferred. CHEST: No tenderness, no crepitus, no paradoxical movement, no retractions. LUNGS: Clear, well-ventilated, symmetric, no rales, no wheezing, no rhonchi, no stridor, good breath sounds bilaterally. HEART: Regular rate, regular rhythm, no murmur, no gallops. VASCULAR: No peripheral edema. ABDOMEN: Soft, positive bowel sounds, nondistended, no guarding, nontender, no rebound, no masses no hepatomegaly, no splenomegaly, no Mirza's sign, no hernias. RECTAL: Deferred. GENITAL: Deferred. NEUROLOGICAL: Normal speech, gross motor function intact, gross sensory function intact. MUSCULOSKELETAL: Neck nontender, full range of motion, back nontender, full range of motion. EXTREMITIES: Nontender, full range of motion. SKIN: Color pink, dry, no turgor, no rash, no lacerations, no abrasions, no contusions. LYMPHATICS: Deferred. Results Laboratory and Microbiology Lab and Micro Result Laboratory Tests Test 08/24/24 23:14 White Blood Count 9.4 K/uL (4.8-10.8) Red Blood Count 2.99 MIL/uL (4.50-6.20) L Hemoglobin 8.9 g/dL (14.0-18.0) L Hematocrit 27.7 % (42-54) L Mean Corpuscular Volume 92.6 fL (79-99) Mean Corpuscular Hemoglobin 29.8 pg (27.0-33.0) Mean Corpuscular Hemoglobin Concent 32.1 g/dL (32.0-36.0) Red Cell Distribution Width 13.8 % (11.0-15.5) Platelet Count 396 K/uL (130-400) Mean Platelet Volume 8.7 fL (7.5-10.5) Immature Granulocyte % (Auto) 0.4 % (0-1) Neutrophils (%) (Auto) 56.0 % (40.0-77.0) Lymphocytes (%) (Auto) 30.8 % (21.0-51.0) Monocytes (%) (Auto) 6.2 % (3.0-13.0) Eosinophils (%) (Auto) 5.6 % (0.0-8.0) Basophils (%) (Auto) 1.0 % (0.0-5.0) Neutrophils # (Auto) 5.2 K/uL (1.8-7.7) Lymphocytes # (Auto) 2.9 K/uL (1.0-4.8) Monocytes # (Auto) 0.6 K/uL (0.1-1.0) Eosinophils # (Auto) 0.52 K/uL (0.00-0.70) Basophils # (Auto) 0.09 K/uL (0.00-0.20) Absolute Immature Granulocyte (auto 0.04 K/uL (0-1) Nucleated Red Blood Cells 0.0 % (0.0-0.19) Prothrombin Time 11.4 SEC (9.6-11.6) Prothromb Time International Ratio 1.02 (0.85-1.15) Activated Partial Thromboplast Time 28.2 SEC (26.3-35.5) Sodium Level 134 mmol/L (136-145) L Potassium Level 4.3 mmol/L (3.5-5.1) Chloride Level 102 mmol/L (101-111) Carbon Dioxide Level 19 mmol/L (21-32) L Blood Urea Nitrogen 9 mg/dL (7-18) Creatinine 1.1 mg/dL (0.5-1.3) Glomerular Filtration Rate Calc 74 mL/min (>90) Random Glucose 75 mg/dL (70-105) Total Calcium 8.7 mg/dL (8.5-10.1) Labs Reviewed?: Yes EKG/XRAY/US/CT/MRI CT Scan Comment CT maxillofacial-nasal fractures, otherwise no acute fracture, facial contusion, periodontal disease CT head-no acute intracranial findings, nasal fractures CT C-spine, no acute C-spine findings MDM MDM: Differential diagnosis: Fall, alcohol intoxication, nasal fracture, Patient is a 69-year-old male coming in to be evaluated after he had a fall. Patient states that he fell down secondary to uneven ground. Patient has been intoxicated. CT of the maxillofacial disclose the nasal fracture. No other current findings. Patient will be discharged in stable condition with a diagnosis of fall nasal contusion nasal fracture, as well as alcohol intoxication. PATIENT WILL BE DISCHARGED WITH FAMILY MEMBERS OR WILL STAY IN THE ER TILL HE WAS SOBER ENOUGH TO GO HOME. ED Course Orders Procedure Category Date Status Time Cbc With Differential LAB 08/24/24 Complete 23:06 Basic Metabolic Panel LAB 08/24/24 Complete 23:06 Pt And Ptt LAB 08/24/24 Complete 23:06 Ct Head/Brain W/O CT 08/24/24 Taken Contrast 23:06 Ct Maxillofacial W/O CT 08/24/24 Taken Contrast 23:06 Ct Cervical Spine W/O CT 08/24/24 Taken Contrast 23:06 Remove Pt Off CPOE 08/25/24 Transmitted C-Collar. (Er) 01:42 Alcohol, Blood LAB 08/25/24 Logged 02:21 0.9%Nacl 1000ml (Ns PHA 08/25/24 Complete 1000ml) 02:30 Current Medications Medications (Trade) Dose Ordered Sig/Citlaly Route PRN Reason Start Time Stop Time Status Last Admin Dose Admin Sodium Chloride 1,000 ml @ 0 mls/hr ONCE ONCE IV 08/25/24 02:30 08/25/24 02:31 DC Vital Signs Date Time Temp Pulse Resp B/P (MAP) Pulse Ox O2 Delivery O2 Flow Rate FiO2 08/25/24 00:30 98.8 78 20 95/60 99 Room Air 08/24/24 23:10 97.9 79 18 115/74 98 Room Air* 0 21 DX & DISP Disposition: Discharge Departure Impression: Primary Impression: Nasal fracture Additional Impressions: Alcohol intoxication, Status post fall Condition: Stable Referrals: SELF,REFERRAL (PCP) Time of Disposition: 02:35 JOCELINE ROSALES MD Aug 25, 2024 01:43
[2024-08-25] MEDS: 0.9%NACL 1000ML 1,000 ML IV ONE (02:53)
--- NOTE | 2024-08-25 06:50 | HMCIMG ---
CT HEAD/BRAIN W/O CONTRAST HISTORY: Trauma COMPARISON: None TECHNIQUE: Multiple sequential axial images of the head were obtained from the base of the skull through vertex. Patient was not given contrast through intravenous route. FINDINGS: The ventricles and extraventricular CSF spaces are dilated consistent with cerebral atrophy. Nonspecific white matter changes seen. There is no midline shift, mass effect or herniation. No acute intracranial bleed is seen. Visualized portion of the paranasal sinuses are grossly within normal limits. There are nasal bone fractures. IMPRESSION: 1. No acute intracranial bleed is seen. 2. Atrophy with white matter changes. Nasal bone fractures. CT was performed with one or more following dose reduction techniques: automated exposure control, adjustment of the mA and kv according to patient's size, or use of a iterative reconstruction technique.
--- NOTE | 2024-08-25 06:56 | HMCIMG ---
CT CERVICAL SPINE W/O CONTRAST HISTORY: Trauma COMPARISON: None TECHNIQUE: Multiple sequential axial images of the cervical spine were obtained including post processing sagittal and coronal reconstruction images. Patient was not given contrast through intravenous route. FINDINGS: There are degenerative changes with cervical spine spondylosis. Disc space narrowings are seen at C3-4, C4-5 and C5-6 levels. Central canal narrowing is seen. There is straightening of normal lordotic cervical curvature which may be related to muscle spasm or positioning. There is no loss of vertebral height. Evaluation for disc and cord pathology is limited with CT study. No evidence of fracture or dislocation is seen. IMPRESSION: 1. No fracture is seen. DJD with cervical spine spondylosis. CT was performed with one or more following dose reduction techniques: automated exposure control, adjustment of the mA and kv according to patient's size, or use of a iterative reconstruction technique.
--- NOTE | 2024-08-25 07:07 | HMCIMG ---
CT MAXILLOFACIAL W/O CONTRAST HISTORY: Status post fall COMPARISON: None TECHNIQUE: Multiple sequential high-resolution axial images of the paranasal sinuses were obtained. Postprocessing sagittal and coronal reconstruction images were also obtained. Patient was not given contrast through intravenous route. FINDINGS: Nasal septum is deviated to was left. There is mild mucoperiosteal thickening involving the bilateral maxillary sinuses. The infundibula are patent bilaterally. Comminuted fractures are seen of the nasal bones with right worse than left. There is no evidence of air-fluid level in the paranasal sinuses. Parapharyngeal fat planes are preserved bilaterally. There is periodontal disease. Facial soft tissue swelling is seen. IMPRESSION: 1. Nasal bone fractures with displacement. CT was performed with one or more following dose reduction techniques: automated exposure control, adjustment of the mA and kv according to patient's size, or use of a iterative reconstruction technique.
[2024-08-25 07:28] VITALS: BP 105/58; PULSE 78; RESP 19; TEMP 98.7; O2SAT 100
--- NOTE | 2024-08-25 07:39 | NUR ---
PATIENT SUCCESFULL GAIT TRIAL
== END 2024-08-25 07:28 | disposition home or self-care (01) ==
LOC: EDH 22:51
DX: S02.2XXA Fracture of nasal bones, initial encounter for closed fracture (principal); F10.129 Alcohol abuse with intoxication, unspecified; K21.9 Gastro-esophageal reflux disease without esophagitis; Z79.01 Long term (current) use of anticoagulants; Z79.899 Other long term (current) drug therapy; W18.39XA Other fall on same level, initial encounter; Y93.89 Activity, other specified; Y92.89 Other specified places as the place of occurrence of the external cause; Y99.8 Other external cause status
CPT/HCPCS: 99284; 70450; 80048; 85025; 85610; 85730; 36415; 72125; 70486; 96360; J7030

== ENCOUNTER 2024-08-25 22:07 | Emergency (ER) | payer SELFPAY ==
[2024-08-25 22:09] VITALS: BP 100/60; PULSE 88; RESP 18; TEMP 98.1
--- NOTE | 2024-08-25 22:31 | ERN ---
General Chief Complaint: Other Problems Stated Complaint: NASAL PAIN Time Seen by MD: 22:12 Time Seen by Midlevel: 22:12 Source: patient, EMS History of Present Illness Initial Comments Patient is a 69-year-old male presenting to the emergency department for evaluation of fatigue. Patient is requesting a bedroom so he can sleep. The patient was seen in our emergency department yesterday after he sustained a fall. He had blood work performed which was all normal. He also had a CT scan performed which was negative. Today he has no other complaints. He specifically denies any chest pain, shortness for breath, or any other symptoms. Allergies: Coded Allergies: No Known Drug Allergies (Unverified Allergy, Unknown, 03/22/24) Home Meds Active Scripts Apixaban (Eliquis) 5 Mg Tablet, 1 TAB PO BID for 30 Days, #60 TAB 0 Refills Prov:CHICA DAVILA MD 07/19/24 Thiamine HCl (B-1) 100 Mg Tablet, 100 MG PO DAILY for 30 Days, #30 TAB 1 Refill Prov:MILLER GARCIA MD 03/25/24 Folic Acid (Folic Acid) 0.4 Mg Tablet, 0.4 MG PO DAILY for 30 Days, #30 TAB 1 Refill Prov:MILLER GARCIA MD 03/25/24 Pantoprazole Sodium (Protonix) 40 Mg Ectab, 40 MG PO DAILY for 30 Days, #30 TAB.EC 1 Refill Prov:MILLER GARCIA MD 03/25/24 Past Medical History Past Medical History: GERD Medical History Other: HOSPITAL ACQUIRED PNEUMONIA Past Surgical History: None Social History Social History: ETOH ROS Dictation CONSTITUTIONAL: Negative except for HPI HEAD/FACE: Negative except for HPI EENT: Negative except for HPI RESPIRATORY: Negative except for HPI GASTROINTESTINAL/ABDOMINAL: Negative except for HPI GENITOURINARY: Negative except for HPI MUSCULOSKELETAL: Negative except for HPI INTEGUMENTARY: Negative except for HPI NEUROLOGICAL/PSYCH: Negative except for HPI HEMATOLOGIC/LYMPHATIC: Negative except for HPI All Systems Negative, Except as noted above. 13 point review of systems assessed and all negative except for above. Physical Exam Physical Exam Dictation Vital Signs reviewed General Appearance: Alert, oriented x 3, no acute distress, unkempt Head and Face: non-traumatic. Eyes: PERRL, pink conjunctivas, eyelid no trauma, anterior chamber with arcus senilis. Ears: Pinnas intact and no signs of trauma or erythema ear canals clear and no discharge TM no erythema Nose: No discharge, no bleeding. Oropharynx: Mouth normal, tongue pink, pharynx clear,no erythema, tonsils no exudates, no abscesses noted, mucous membrane moist Neck: Supple, non-tender, no thyromegaly, no masses, no JVD, no bruits Breast:Deferred Chest:No tenderness, no crepitus, no paradoxical movement, no retractions Lungs:Clear, well-ventilated, symmetric, no rales, no wheezing, no rhonchi, no stridor, good breath sounds bilaterally Heart: Regular rate, regular rhythm, no murmur, no gallops Vascular: no peripheral edema, Abdomen: Soft, positive bowel sounds, nondistended, no guarding, nontender, no rebound, no masses no hepatomegaly, no splenomegaly, no Mirza's sign, no hernias. Rectal: Deferred Genital: Deferred Neurological: Normal speech, motor function intact, sensory function intact Musculoskeletal: Neck nontender, full range of motion, back nontender, full range of motion, Extremities: nontender, full range of motion Skin: Color pink, dry, no turgor, no rash, no lacerations, no abrasions, no contusions. Lymphatic: Deferred MDM MDM: Differential diagnosis: Malingering, wellness examination There are no social concerns with this patient. Prescription drug management Prescriptions will include: None Medical management and examination interpretation discussions were had by me with other qualified healthcare professionals as indicated for the patient's care. ED Course Vital Signs Date Time Temp Pulse Resp B/P (MAP) Pulse Ox O2 Delivery O2 Flow Rate FiO2 08/25/24 22:09 98.1 88 18 100/60 95 Room Air 0 DX & DISP Disposition: Discharge Departure Impression: Primary Impression: Malingering Condition: Stable Additional Instructions: You were seen in the emergency department yesterday where you had a full workup that was all normal. Please follow up with your primary care doctor for further evaluation. Referrals: SELF,REFERRAL (PCP) Time of Disposition: 22:31 I have reviewed the case, and I agree with, Diagnosis and Plan I performed the substantive portion of the visit. I have reviewed and personally made and approve the management plan that is documented in the note by myself or the BARBARA. I acknowledge for responsibility for the patient's management plan. KIMBERLY ERNANDEZ Aug 25, 2024 22:31
--- NOTE | 2024-08-26 00:12 | NUR ---
patient became angry, threw discharge instructions at er staff, refused discharge vitals
== END 2024-08-26 00:13 | disposition home or self-care (01) ==
LOC: EDH 22:07
DX: R53.83 Other fatigue (principal); K21.9 Gastro-esophageal reflux disease without esophagitis; Z76.5 Malingerer [conscious simulation]; Z79.01 Long term (current) use of anticoagulants; Z79.899 Other long term (current) drug therapy
CPT/HCPCS: 99283